=== PATIENT | male | born 1955 | race Two or more races ===

== ENCOUNTER 2024-12-27 10:57 | Emergency (ER) | payer MEDICARE, MEDICAID ==
[~2024-12-27] VITALS: Ht 177.8 cm; Wt 86.3 kg
[2024-12-27 10:59] VITALS: BP 194/90; RESP 20; TEMP 98; O2SAT 98
[2024-12-27 11:13] VITALS: PULSE 119
--- NOTE | 2024-12-27 11:21 | ECG ---
[facility] Test Date: 2024-12-27 Test Time: 11:13:00 Pat Name: SHANNON LOYA Department: ED Room: Gender: M Outcomes Specialist: semaj : [id number] Requested By: ARUNA REGAN Order Number: [id number] Reading MD: Barak Patton Measurements Intervals [place] Rate: 119 P: 0 IL: 0 QRS: -99 QRSD: 157 T: 33 QT: 344 QTc: 485 Interpretive Statements Atrial fibrillation Right bundle branch block Inferior infarct, old Anterolateral infarct, age indeterminate Baseline wander in lead(s) I,II,III,aVR,aVF,V2,V3,V6 Electronically Signed On 12-27-2024 23:01:02 PDT by Barak Patton Please click the below link to view image of tracing.
--- NOTE | 2024-12-27 11:34 | ED.PDOC ---
History of Present Illness HPI Comments This is a 69-year-old male with past medical history of CVA, brain aneurysm, CAD, status post pacemaker, aortic dissection with status post stent , AFib on Eliquis presented to the ED with a chief complaint of blurred vision, unsteady gait, lightheadedness since morning prior to this visit. The patient states that since his stroke he became very unsteady, high risk of fall and complaint of blurred vision and lightheadedness since morning. He is homeless and not able to do his ADL. He denies headache, shortness of breath, chest pain, nausea, vomiting, abdominal pain, dysuria, hematuria or any change in bowel habit. Chief Complaint: Dizziness Time Seen by MD: 11:00 Allergies: Coded Allergies: NO KNOWN ALLERGIES (Unverified , 12/27/24) Information Source: Patient Mode of Arrival: Ambulatory Severity: Mild Timing: Hours Duration: Since onset Prehospital treatment: None Past Medical History PAST MEDICAL HISTORY: AFIB, Angina, CAD, CVA, HTN Surgical History: Pacemaker, PTCA Family History Family History: Reviewed,noncontributory to illness Social History Smoker: Cigarettes, Greater Than 1 Pack/Day Alcohol: Denies ETOH Use Drugs: Denies Drug Use Lives In: Home Constitutional: reports: weakness; denies: chills, diaphoresis, fatigue, fever, malaise, sweats, others EENTM: reports: blurred vision; denies: double vision, ear bleeding, ear discharge, ear drainage, ear pain, ear ringing, eye pain, eye redness, hearing loss, mouth pain, mouth swelling, nasal discharge, nose bleeding, nose congestion, nose pain, photophobia, tearing, throat pain, throat swelling, voice changes, others Respiratory: denies: cough, hemoptysis, orthopnea, SOB at rest, shortness of breath, SOB with excertion, stridor, wheezing, others Cardiovascular: reports: dizzy spells, irregular heart beat, lightheadedness; denies: chest pain, diaphoresis, Dyspnea on exertion, edema, left arm pain, palpitations, PND, syncope, others Gastrointestinal: denies: abdomen distended, abdominal pain, blood streaked bowels, constipated, diarrhea, dysphagia, difficulty swallowing, hematemesis, melena, nausea, poor appetite, poor fluid intake, rectal bleeding, rectal pain, vomiting, others Genitourinary: denies: burning, dysuria, flank pain, frequency, hematuria, incontinence, penile discharge, penile sore, pain, testicle pain, testicle swelling, urgency, others Neurological: reports: dizziness; denies: fainting, headache, left sided numbness, left sided weakness, numbness, paresthesia, pre-existing deficit, right sided numbness, right sided weakness, seizure, speech problems, tingling, tremors, weakness, others Musculoskeletal: denies: back pain, gout, joint pain, joint swelling, muscle pain, muscle stiffness, neck pain, others Integumetry: denies: bruises, change in color, change in hair/nails, dryness, laceration, lesions, lumps, rash, wounds, others Allergic/Immunocompromised: denies: Difficulty Healing, Frequent Infections, Hives, Itching, others Hematologic/Lymphatic: denies: anemia, blood clots, easy bleeding, easy bruising, swollen glands, others Endocrine: denies: excessive hunger, excessive sweating, excessive thirst, excessive urination, flushing, intolerance to cold, intolerance to heat, unexplained weight gain, unexplained weight loss, others Psychiatric: denies: anxiety, bipolar disorder, depression, hopeless, panic disorder, schizophrenia, sleepless, suicidal, others Physical Exam General Appearance: Mild Distress HEENT: Other (Right eye is blind, 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) Neck: Full Range of Motion, Non-Tender, Normal, Normal Inspection Respiratory: Chest Non-Tender, Lungs Clear, No Accessory Muscle Use, No Respi ratory Distress, Normal Breath Sounds Cardiovascular: No Edema, No JVD, No Murmur, No Gallop, Normal Peripheral Pulses, Regular Rate/Rhythm Breast Exam: Deferred Gastrointestinal: No Organomegaly, Non Tender, No Pulsatile Mass, Normal Bowel Sounds, Soft Genitalia: Deferred Pelvic: Deferred Rectal: Deferred Extremities: No calf tenderness, Normal capillary refill, Normal inspection, Normal range of motion, Non-tender, No pedal edema Neurologic: Abnormal Gait, cheese blender II-XII nml as Tested, No Motor Deficits, No Sensory Deficits Cerebellar Function: Normal Reflexes: Normal Skin: Dry, Normal Color, Warm Peripheral Pulses: 2+ carotid (R), 2+ carotid (L), 2+ femoral (R), 2+ femoral (L), 2+ dorsalis pedis (R), 2+ dorsalis pedis (L), 2+ Radial (R), 2+ Radial (L), 2+ Brachial (R), 2+ Brachial (L) Lymphatic: NOT DONE Was a procedure done? Was a procedure done?: No Differential Dx Considerations may include: TIA, stroke, autonomic instability, labyrinthitis, BPPV, CHF X-Ray, Labs, Meds, VS Vital Signs Date Time Temp Pulse Resp B/P (MAP) Pulse Ox O2 Delivery O2 Flow Rate FiO2 12/27/24 11:13 119 12/27/24 10:59 98.0 108 20 194/90 98 98.0 Lab Test 12/27/24 14:03 12/27/24 13:00 12/27/24 11:09 Range/Units Urine Color Yellow Yellow Urine Clarity Clear Clear Urine pH 5.5 5.0-9.0 Urine Specific [place] 1.021 1.001-1.035 Urine Protein 1+ H Negative Urine Ketones Negative Negative Urine Blood 1+ H Negative /uL Urine Nitrite Negative Negative Urine Bilirubin Negative Negative Urine Urobilinogen Normal Negative mg/dL Urine Leukocyte Esterase Negative Negative /uL Urine RBC 2 0 - 3 /hpf Urine Microscopic WBC 2 0-3 /HPF Urine Squamous Epithelial Cells Few <5 /hpf Urine Bacteria None seen None Seen /hpf Urine Mucus Few None Seen Urine Glucose Normal Normal mg/dL White Blood Count 10.2 4.4-10.8 10^3/uL Red Blood Count 5.34 4.5-5.90 10^6/uL Hemoglobin 15.3 13.5-17.5 g/dL Hematocrit 43.6 41.0-53.0 % Mean Corpuscular Volume 81.7 80.0-100.0 fL Mean Corpuscular Hemoglobin 28.7 28.0-32.0 pg Mean Corpuscular Hemoglobin Concent 35.1 32.0-36.0 g/dL Red Cell Distribution Width 17.3 H 11.8-14.3 % Platelet Count 151 140-450 10^3/uL Mean Platelet Volume 8.2 6.9-10.8 fL Neutrophils (%) (Auto) 80.7 H 37.0-80.0 % Lymphocytes (%) (Auto) 8.5 L 10.0-50.0 % Monocytes (%) (Auto) 8.9 0.0-12.0 % Eosinophils (%) (Auto) 1.1 0.0-7.0 % Basophils (%) (Auto) 0.8 0.0-2.0 % Neutrophils # (Auto) 8.3 1.6-8.6 10 ^3/uL Lymphocytes # (Auto) 0.9 0.4-5.4 10 ^3/uL Monocytes # (Auto) 0.9 0-1.3 10 ^3/uL Eosinophils # (Auto) 0.1 0-0.8 10 ^3/uL Basophils # (Auto) 0.1 0-0.2 10 ^3/uL Nucleated Red Blood Cells 0.2 % Sodium Level 145 136-145 mmol/L Potassium Level 3.5 3.5-5.1 mmol/L Chloride Level 110 H 98-107 mmol/L Carbon Dioxide Level 24 20-31 mmol/L Anion Gap 11 5-15 Blood Urea Nitrogen 14 9-23 mg/dL Creatinine 1.23 0.700-1.30 mg/dL Glomerular Filtration Rate Calc 64 >90 mL/min BUN/Creatinine Ratio 11.4 10.0-20.0 Serum Glucose 127 H 74-106 mg/dL Calcium Level 10.1 8.7-10.4 mg/dL Troponin I High Sensitivity 12 </=54 ng/L B-Type Natriuretic Peptide 228.68 0-100 pg/mL POC Glucose 217 H 70-106 mg/dl X-Ray, Labs, Meds, VS Comment CLINICAL INFORMATION: 69 years old, Male; Dizziness. TECHNIQUE: Axial imaging was obtained through the brain without contrast. Coronal and sagittal reformatted images were obtained, reviewed, and stored. Images were reviewed in brain and bone windows. All CT scans at this medical facility are performed using dose modulation techniques as appropriate to a performed exam including the following: Automated exposure control was utilized; adjustment of the MA and/or KV according to patient size; and use of iterative reconstruction technique. CTDIvol = 63.11 mGy DLP = 1390.05 mGy-cm COMPARISON: None FINDINGS: There is no acute intracranial hemorrhage. No mass effect or midline shift. Scattered areas of hypoattenuation are seen in the periventricular and subcortical white matter, which are nonspecific but most likely sequelae of small vessel ischemic disease. There is beam hardening artifact from a curvi linear foreign body in the anterior aspect of the left anterior cranial fossa along the anterior aspect of the left frontal lobe posterior to the left frontal sinus. The ventricles and sulci are within normal limits in size for age. Basal cisterns are patent. The calvarium is unremarkable. Mild mucosal thickening of the paranasal sinuses with scattered areas of partial opacification, greatest in the right maxillary sinus. IMPRESSION: 1. No CT evidence of acute intracranial abnormality. 2. Foreign body in the anterior aspect of the left anterior cranial fossa with associated beam hardening artifact as described above, of uncertain etiology. Correlate with clinical findings. 3. Additional nonacute findings as described above. CHEST RADIOGRAPH Indication: Shortness of breath Technique: Single frontal view of the chest was obtained COMPARISON: None FINDINGS: Lines and Tubes: Left chest pacemaker Lungs: Clear Pleura: No effusion. No pneumothorax. Cardiomediastinal contours: Thoracic aorta stent in-situ. Bones: Unremarkable IMPRESSION: No acute disease. [facility] Test Date: 2024-12-27 Test Time: 11:13:00 Pat Name: SHANNON MCCLELLAN Department: ED Room: Gender: M Emergency Medicine Nurse Practitioner: semaj : 1955 Requested By: ARUNA REGAN Order Number: [id number] Reading MD: Measurements Intervals [place] Rate: 119 P: 0 NV: 0 QRS: -99 QRSD: 157 T: 33 QT: 344 QTc: 485 Interpretive Statements Atrial fibrillation Right bundle branch block Inferior infarct, old Anterolateral infarct, age indeterminate Baseline wander in lead(s) I,II,III,aVR,aVF,V2,V3,V6 Images Reviewed?: Images reviewed and evaluated by me Time of 1ST Reevaluation: 15:11 Reevaluation 1ST: Unchanged Patient Education/Counseling: Diagnosis, Treatment Family Education/Counseling: Other Comments This is a 69-year-old male with presented to the ER with a complaint of lightheadedness, blurred vision since morning prior to this visit The patient had a CVA 14 months ago and after that he became more unsteady and high risk of fall Initial physical exam demonstrated abnormal gait and neurological exam revealed no motor, sensory deficit, cranial nerve 2-12 normal, reflexes are normal and no sign of clonus. CT head without contrast ruled out acute intracranial abnormality tree worker is consulted regarding homelessness and assistance for daily ADL The patient is under ED observation for placement SEPSIS Sepsis Screen Date sepsis recognized/suspect: Dec 27, 2024 Time Sepsis recognized/suspect: 1100 Recent Procedure: No On Antibiotic Therapy: No Respiratory Rate >20: No Heart Rate >90: Yes Temp<36 C (96.8 F) or >38.3 C: No SBP <90 or MAP <65 mmHG: No New Acute Mental Status Change: No Is the patient on CPAP, BIPAP,: No Physician Orders Head Without Contrast (12/27/24 11:31) Chest Portable (12/27/24 11:31) Orthostatic Vital Signs (12/27/24 11:33) * Linux Server Administrator Consult (12/27/24 ) Vital Signs Date Time Temp Pulse Resp B/P (MAP) Pulse Ox O2 Delivery O2 Flow Rate FiO2 12/27/24 11:13 119 12/27/24 10:59 98.0 108 20 194/90 98 98.0 Laboratory Tests Test 12/27/24 13:00 White Blood Count 10.2 10^3/uL (4.4-10.8) Departure 1 Departure Time of Disposition: 15:18 Impression: Primary Impression: TIA (transient ischemic attack) Disposition: 01 HOME / SELF CARE / HOMELESS Condition: Guarded Critical Care Note Critical Care Time?: No Stability Stability form required: ARUNA Saeed RESIDENT Dec 27, 2024 11:34
--- NOTE | 2024-12-27 12:33 | DVH ---
CHEST RADIOGRAPH Indication: Shortness of breath Technique: Single frontal view of the chest was obtained COMPARISON: None FINDINGS: Lines and Tubes: Left chest pacemaker Lungs: Clear Pleura: No effusion. No pneumothorax. Cardiomediastinal contours: Thoracic aorta stent in-situ. Bones: Unremarkable IMPRESSION: No acute disease.
--- NOTE | 2024-12-27 12:39 | DVH ---
CLINICAL INFORMATION: 69 years old, Male; Dizziness. TECHNIQUE: Axial imaging was obtained through the brain without contrast. Coronal and sagittal reform atted images were obtained, reviewed, and stored. Images were reviewed in brain and bone windows. Al l CT scans at this medical facility are performed using dose modulation techniques as appropriate to a performed exam including the following: Automated exposure control was utilized; adjustment of the MA and/or KV according to patient size; and use of iterative reconstruction technique. CTDIvol = 63.1 1 mGy DLP = 1390.05 mGy-cm COMPARISON: None FINDINGS: There is no acute intracranial hemorrhage. No mass effect or midline shift. Scattered areas of hypoattenuation are seen in the periventricular and subcortical white matter, which are nonspecif ic but most likely sequelae of small vessel ischemic disease. There is beam hardening artifact from a curvilinear foreign body in the anterior aspect of the left anterior cranial fossa along the anterio r aspect of the left frontal lobe posterior to the left frontal sinus. The ventricles and sulci are w ithin normal limits in size for age. Basal cisterns are patent. The calvarium is unremarkable. Mild mucosal thickening of the paranasal sinuses with scattered areas of partial opacification, greatest i n the right maxillary sinus. IMPRESSION: 1. No CT evidence of acute intracranial abnormality. 2. Foreign body in the anterior aspect of the left anterior cranial fossa with associated beam harden ing artifact as described above, of uncertain etiology. Correlate with clinical findings. 3. Additional nonacute findings as described above.
[2024-12-27 13:33] LABS: Hematocrit 43.6 % (41.0-53.0); Hemoglobin 15.3 g/dL (13.5-17.5); Mean Corpuscular Hemoglobin 28.7 pg (28.0-32.0); Mean Corpuscular Volume 81.7 fL (80.0-100.0); Nucleated Red Blood Cells % 0.2 %
[2024-12-27 13:36] LABS: Anion Gap 11 (5-15); Calcium 10.1 mg/dL (8.7-10.4); Carbon Dioxide 24 mmol/L (20-31)
[2024-12-27 13:38] LABS: Chloride 110 mmol/L (98-107); Potassium 3.5 mmol/L (3.5-5.1); Sodium 145 mmol/L (136-145)
[2024-12-27 13:41] LABS: BUN/Creatinine Ratio 11.4 (10.0-20.0); Blood Urea Nitrogen 14 mg/dL (9-23)
[2024-12-27 13:46] LABS: Glucose 127 mg/dL (74-106)
[2024-12-27 14:09] LABS: Urine Protein, UAD 1+ (Negative)
[2024-12-28] MEDS ORDERED: AMLO1TAB22 PO (10:32)
[2024-12-28] MEDS ORDERED: APIX5TAB PO (10:32)
== END 2024-12-27 17:35 | disposition home or self-care (01) ==
LOC: ER 10:57
DX: G45.9 Transient cerebral ischemic attack, unspecified (principal); I10 Essential (primary) hypertension; F17.210 Nicotine dependence, cigarettes, uncomplicated; I25.10 Atherosclerotic heart disease of native coronary artery without angina pectoris; I48.91 Unspecified atrial fibrillation; Z95.0 Presence of cardiac pacemaker; Z98.890 Other specified postprocedural states
CPT/HCPCS: 36415; 70450; 71045; 80048; 81001; 82947; 82962; 83880; 84484; 85025; 93005

== ENCOUNTER 2024-12-27 20:12 | Inpatient (IN) | payer MEDICARE, OTHER, MEDICAID ==
[~2024-12-27] VITALS: Ht 177.8 cm; Wt 89.7 kg
--- NOTE | 2024-12-27 21:02 | DVH ---
INDICATION: SOB TECHNIQUE: Frontal view of the chest. COMPARISON: XY CHEST PORTABLE on DOS: 12/27/24 FINDINGS/IMPRESSION: Left-sided dual-chamber pacemaker. Aortic stent is noted. Unchanged cardiomediastinal silhouette. T he lungs are clear. No pleural effusion or pneumothorax. Unchanged osseous structures.
--- NOTE | 2024-12-27 21:38 | ED.PDOC ---
History of Present Illness HPI Comments 69 year old male presents to the ED with a chief complaint of generalized weakness onset today (12/27/24). PMHx CVA, brain aneurysm, CAD, status post pacemaker, aortic dissection with status post stent , AFib on Eliquis. Patient states he was seen earlier today in this ED for dizziness, was discharged. Patient was outside hospital, states he felt weak, fell 2 different times, decided to check in. He is currently experiencing generalized weakness, chest pain, rates pain 9/. Denies fever, chills, nausea, vomiting, diarrhea, shortness of breath, headache, dysuria, hematuria. No other symptoms or modifying factors present at this time. Chief Complaint: General Weakness Time Seen by MD: 21:15 Reviewed Notes: Medications, Allergies Allergies: Coded Allergies: NO KNOWN ALLERGIES (Unverified , 12/27/24) Information Source: Patient Mode of Arrival: Ambulatory Severity: Moderate Timing: Hours Duration: Since onset Prehospital treatment: None Past Medical History PAST MEDICAL HISTORY: AFIB, Angina, CAD, CVA, HTN Surgical History: Pacemaker, PTCA Family History Family History: Reviewed,noncontributory to illness Social History Smoker: Cigarettes, Greater Than 1 Pack/Day Alcohol: Denies ETOH Use Drugs: Denies Drug Use Lives In: Home Constitutional: reports: weakness; denies: chills, diaphoresis, fatigue, fever, malaise, sweats, others EENTM: denies: blurred vision, double vision, ear bleeding, ear discharge, ear drainage, ear pain, ear ringing, eye pain, eye redness, hearing loss, mouth pain, mouth swelling, nasal discharge, nose bleeding, nose congestion, nose pain, photophobia, tearing, throat pain, throat swelling, voice changes, others Respiratory: denies: cough, hemoptysis, orthopnea, SOB at rest, shortness of breath, SOB with excertion, stridor, wheezing, others Cardiovascular: reports: chest pain; denies: dizzy spells, diaphoresis, Dyspnea on exertion, edema, irregular heart beat, left arm pain, lightheadedness, palpitations, PND, syncope, others Gastrointestinal: denies: abdomen distended, abdominal pain, blood streaked bowels, constipated, diarrhea, dysphagia, difficulty swallowing, hematemesis, melena, nausea, poor appetite, poor fluid intake, rectal bleeding, rectal pain, vomiting, others Genitourinary: denies: burning, dysuria, flank pain, frequency, hematuria, incontinence, penile discharge, penile sore, pain, testicle pain, testicle swelling, urgency, others Neurological: reports: weakness; denies: dizziness, fainting, headache, left sided numbness, left sided weakness, numbness, paresthesia, pre-existing deficit, right sided numbness, right sided weakness, seizure, speech problems, tingling, tremors, others Musculoskeletal: denies: back pain, gout, joint pain, joint swelling, muscle pain, muscle stiffness, neck pain, others Integumetry: denies: bruises, change in color, change in hair/nails, dryness, laceration, lesions, lumps, rash, wounds, others Allergic/Immunocompromised: denies: Difficulty Healing, Frequent Infections, Hives, Itching, others Hematologic/Lymphatic: denies: anemia, blood clots, easy bleeding, easy bruising, swollen glands, others Endocrine: denies: excessive hunger, excessive sweating, excessive thirst, excessive urination, flushing, intolerance to cold, intolerance to heat, unexplained weight gain, unexplained weight loss, others Psychiatric: denies: anxiety, bipolar disorder, depression, hopeless, panic disorder, schizophrenia, sleepless, suicidal, others All Other Systems: Reviewed and Negative Physical Exam General Appearance: Normal HEENT: Normal ENT Inspection, Pharynx Normal, TMs Normal Neck: Full Range of Motion, Non-Tender, Normal, Normal Inspection Respiratory: Chest Non-Tender, Lungs Clear, No Accessory Muscle Use, No Respiratory Distress, Normal Breath Sounds Cardiovascular: No Edema, No JVD, No Murmur, No Gallop, Normal Peripheral Pulses, Regular Rate/Rhythm Breast Exam: Deferred Gastrointestinal: No Organomegaly, Non Tender, No Pulsatile Mass, Normal Bowel Sounds, Soft Genitalia: Deferred Pelvic: Deferred Rectal: Deferred Extremities: No calf tenderness, Normal capillary refill, Normal inspection, Normal range of motion, Non-tender, No pedal edema Musculoskeletal : Apperance: Normal Neurologic: Alert, brake operator sheet metal II-XII nml as Tested, No Motor Deficits, Normal Affect, Normal Mood, No Sensory Deficits Cerebellar Function: Normal Reflexes: Normal Skin: Dry, Normal Color, Warm Lymphatic: No Adenopathy Was a procedure done? Was a procedure done?: No Differential Dx Considerations may include: Differential diagnosis includes but not limited to: Myocardial infarction, aortic dissection, aortic aneurysm, pericarditis, pulmonary embolus and others X-Ray, Labs, Meds, VS Vital Signs Date Time Temp Pulse Resp B/P (MAP) Pulse Ox O2 Delivery O2 Flow Rate FiO2 12/27/24 20:15 97.6 96 16 155/103 96 97.6 Lab Test 12/27/24 22:03 12/27/24 21:01 Range/Units Troponin I High Sensitivity 14 13 </=54 ng/L White Blood Count 9.1 4.4-10.8 10^3/uL Red Blood Count 4.99 4.5-5.90 10^6/uL Hemoglobin 14.4 13.5-17.5 g/dL Hematocrit 41.2 41.0-53.0 % Mean Corpuscular Volume 82.6 80.0-100.0 fL Mean Corpuscular Hemoglobin 28.9 28.0-32.0 pg Mean Corpuscular Hemoglobin Concent 35.0 32.0-36.0 g/dL Red Cell Distribution Width 16.6 H 11.8-14.3 % Platelet Count 131 L 140-450 10^3/uL Mean Platelet Volume 8.5 6.9-10.8 fL Neutrophils (%) (Auto) 74.0 37.0-80.0 % Lymphocytes (%) (Auto) 13.7 10.0-50.0 % Monocytes (%) (Auto) 9.7 0.0-12.0 % Eosinophils (%) (Auto) 1.9 0.0-7.0 % Basophils (%) (Auto) 0.7 0.0-2.0 % Neutrophils # (Auto) 6.7 1.6-8.6 10 ^3/uL Lymphocytes # (Auto) 1.2 0.4-5.4 10 ^3/uL Monocytes # (Auto) 0.9 0-1.3 10 ^3/uL Eosinophils # (Auto) 0.2 0-0.8 10 ^3/uL Basophils # (Auto) 0.1 0-0.2 10 ^3/uL Nucleated Red Blood Cells 0.1 % Sodium Level 143 136-145 mmol/L Potassium Level 3.2 L 3.5-5.1 mmol/L Chloride Level 109 H 98-107 mmol/L Carbon Dioxide Level 23 20-31 mmol/L Anion Gap 11 5-15 Blood Urea Nitrogen 13 9-23 mg/dL Creatinine 1.24 0.700-1.30 mg/dL Glomerular Filtration Rate Calc 63 >90 mL/min BUN/Creatinine Ratio 10.5 10.0-20.0 Serum Glucose 229 #H 74-106 mg/dL Calcium Level 9.6 8.7-10.4 mg/dL Magnesium Level 2.1 1.6-2.6 mg/dL Total Bilirubin 0.9 0.2-1.0 mg/dL Aspartate Amino Transferase (AST) 38 13-40 U/L Alanine Aminotransferase (ALT) 80 H 7-40 U/L Alkaline Phosphatase 103 46-116 U/L Total Protein 7.9 5.7-8.2 g/dL Albumin 4.5 3.2-4.8 g/dL [place] [id number] Ph: [phone] DIAGNOSTIC IMAGING Diagnostic Imaging Report : [id number] Signed PATIENT: SHANNON LOYA ACCT: [id number] UNIT: [id number] : 1955 LOC: ER ROOM / BED: / AGE / SEX: 69 / M ADM STATUS: REG ER SERVICE 25 ORDERING PHYSICIAN: LIVIER MARTINEZ MD PROCEDURE(s): CXRP - CHEST PORTABLE REASON: SOB ORDER NUMBER(s): [id number], ACCESSION NUMBER(s): [id number] INDICATION: SOB TECHNIQUE: Frontal view of the chest. COMPARISON: XY CHEST PORTABLE on DOS: 12/27/24 FINDINGS/IMPRESSION: Left-sided dual-chamber pacemaker. Aortic stent is noted. Unchanged cardiomediastinal silhouette. The lungs are clear. No pleural effusion or pneumothorax. Unchanged osseous structures. ATED BY: NICOLE ARENAS MD DICTATED DATE/TIME: 12/27/242058 SIGNED BY: NICOLE ARENAS MD SIGNED DATE/TIME: 12/27/242058 CC: Time of 1ST Reevaluation: 21:45 Reevaluation 1ST: Unchanged Patient Education/Counseling: Diagnosis, Treatment, Prognosis Family Education/Counseling: No Family Present Additional Information The following tests were ordered, and results were reviewed by me: TROP-x3, CBC, CMP, XY CHEST, MAGNESIUM, EKG I reviewed and agreed with the following test results read by other providers: XY CHEST I discussed treatment and results with medical personnel and: patient Comprehensive systems review obtained and negative except for what is stated in the HPI. SEPSIS Sepsis Screen Date sepsis recognized/suspect: Dec 27, 2024 Time Sepsis recognized/suspect: 2018 Recent Procedure: No On Antibiotic Therapy: No Respiratory Rate >20: No Heart Rate >90: Yes Temp<36 C (96.8 F) or >38.3 C: No SBP <90 or MAP <65 mmHG: No New Acute Mental Status Change: No Is the patient on CPAP, BIPAP,: No Physician Orders Chest Portable (12/27/24 20:26) Electrocardigram (12/27/24 20:26) Troponin-I Hs (12/27/24 23:26) Vital Signs Date Time Temp Pulse Resp B/P (MAP) Pulse Ox O2 Delivery O2 Flow Rate FiO2 12/27/24 20:15 97.6 96 16 155/103 96 97.6 Laboratory Tests Test 12/27/24 21:01 White Blood Count 9.1 10^3/uL (4.4-10.8) Departure 1 Departure Time of Disposition: 23:24 Impression: Primary Impression: Acute coronary syndrome Disposition: ADMITTED INPATIENT Admit to: Tele Condition: Guarded Discharged With: Self Comments 69-year-old male with a history of prior strokes and prior aortic aneurysm and prior myocardial infarctions with multiple stents placed now presents with left- sided chest pain. Patient was given aspirin and morphine. Initial troponin is within normal limits. Patient will need to be admitted for further cardiac workup and supportive care Critical Care Note Critical Care Time?: Yes (35 min-critical care time only) Critical care comment: Total critical care time: Approximately 36 minutes Due to a high probability of clinically significant, life threatening deterioration, the patient required my highest level of preparedness to intervene emergently and I personally spent this critical care time directly and personally managing the patient. This critical care time included obtaining a history; examining the patient; pulse oximetry; ordering and review of studies; arranging urgent treatment with development of a management plan; evaluation of patient's response to treatment; frequent reassessment; and, discussions with other providers. This critical care time was performed to assess and manage the high probability of imminent, life-threatening deterioration that could result in multi-organ failure. It was exclusive of separately billable procedures and treating other patients. Stability Stability form required: No Heart Score Heart Score: Heart Score Response (Comments) Value History Moderate Suspicious 1 EKG Repolarization Disturb 1 Age >65 2 Risk Factors >3 or Hx ASHD 2 Troponin Normal limit 0 Total 6 I personally scribed for LIVIER MARTINEZ MD ([email or web address]) on 12/27/24 at 21:38. Electronically submitted by Tesha Byers ([email or web address]). LIVIER MARTINEZ MD Dec 27, 2024 21:38
[2024-12-27 21:43] LABS: Hematocrit 41.2 % (41.0-53.0); Hemoglobin 14.4 g/dL (13.5-17.5); Mean Corpuscular Hemoglobin 28.9 pg (28.0-32.0); Mean Corpuscular Volume 82.6 fL (80.0-100.0); Nucleated Red Blood Cells % 0.1 %
[2024-12-27 21:55] LABS: Albumin 4.5 g/dL (3.2-4.8); Alkaline Phosphatase 103 U/L (46-116); Anion Gap 11 (5-15); BUN/Creatinine Ratio 10.5 (10.0-20.0); Blood Urea Nitrogen 13 mg/dL (9-23); Calcium 9.6 mg/dL (8.7-10.4); Carbon Dioxide 23 mmol/L (20-31); Magnesium 2.1 mg/dL (1.6-2.6); Sodium 143 mmol/L (136-145); Total Protein 7.9 g/dL (5.7-8.2)
[2024-12-27 21:56] LABS: Bilirubin, Total 0.9 mg/dL (0.2-1.0)
[2024-12-27 22:11] LABS: Alanine Aminotransferase 80 U/L (7-40); Chloride 109 mmol/L (98-107); Glucose 229 mg/dL (74-106); Potassium 3.2 mmol/L (3.5-5.1)
[2024-12-28] VITALS (10 sets, daily range): BP systolic 121–163; BP diastolic 71–101; PULSE 64–98; RESP 16–19; TEMP 96.9–98.4; O2SAT 95–97
[2024-12-28] MEDS ORDERED: MORPHINE SULFATE INJ 2 MG/ml SYRG IV PRN (00:30)
[2024-12-28] MEDS ORDERED: NITROGLYCERIN 0.4 MG SL TAB SL PRN (00:30)
--- NOTE | 2024-12-28 01:05 | DVHHPRES ---
History of Present Illness Resident Creating Document: OLEG OAKES RESIDENT History of Present Illness 69-year-old male with history of repair of aortic dissection with stent placed, atrial fibrillation with dual-chamber left-sided pacemaker in place on Eliquis, cerebrovascular accident with remaining neurologic deficits, peripheral arterial disease status post left 2nd toe amputation, uncontrolled diabetes mellitus nonadherence to medicines, hypertension presents to the ER with the complaints of dizziness followed by fall 2 times, right-sided lower chest pain for the same duration. He also reports having increasing weakness in the legs. The pain is sharp and aching in nature, worse with movement, deep breathing or coughing. He denies any associated shortness of breath, abdominal pain, nausea, vomiting or any other complaints. He endorsed ataxic gait during history taking and examination. Past medical history: Hypertension, diabetes mellitus,cerebrovascular accident with remaining neurologic deficits, peripheral neuropathy Past surgical history: Aortic dissection with stent placed (12 years ago) , atrial fibrillation with dual-chamber left-sided pacemaker in place (10 years ago),peripheral arterial disease status post left 2nd toe amputation, Home medications: Eliquis, Lipitor Allergies: None Family history: Multiple siblings of coronary artery disease Social history: Lives in a travel trailer, does not have a wheelchair or walker Smoking history: 156 to 208 pack years, smoking 3-4 packs of cigarettes since 17 years of age Alcohol history: Drank for 25 years Drugs history: None PCP: Dr. Erickson Dillard Code status: Full code Review of Systems Cardiovascular: Chest Pain, Lt Headedness Neurological: Weakness Allergies: Coded Allergies: NO KNOWN ALLERGIES (Unverified , 12/27/24) Medications Current Medications Medications Dose Ordered Sig/Stefanie Route Start Time Stop Time Status Last Admin Dose Admin Nitroglycerin 0.4 mg Q5MINP PRN SL 12/28/24 00:30 UNV Morphine Sulfate 2 mg Q30M PRN IV 12/28/24 00:30 UNV Exam Vital Signs Vital Signs Date Time Temp Pulse Resp B/P (MAP) Pulse Ox O2 Delivery O2 Flow Rate FiO2 12/27/24 20:15 97.6 96 16 155/103 96 97.6 Exam Pt is lying on bed General Appearance: Alert, Oriented X3, Cooperative, Mild distress HEENT: Atraumatic, Mucous membranes moist/pink Respiratory: Clear to auscultation, Normal air movement, No added sounds Cardiovascular: Regular rate, Normal S1, Normal S2, No murmurs Abdominal/ : Active bowel sounds, Soft, no distention, right upper abdomen tenderness, tenderness present over right lower ribs Extremities:bilateral lower extremity skin indurated, thickened and erythematou s, Multiple small ulcers noted at the anterior surfaces of both legs, left 2nd toe amputated. Skin: No Significant rash, except past surgical scars Neuro: Normal speech, mild right-sided weakness, peripheral vision loss in both eyes, right lateral rectus muscle weak. right eye deviated to the periphery. Ataxic gait. Psych/Mental Status: Mental status NL, Mood NL Nurse was there as account group supervisor during examination Labs/Xrays Labs Test 12/27/24 22:03 12/27/24 21:01 Range/Units Troponin I High Sensitivity 14 </=54 ng/L White Blood Count 9.1 4.4-10.8 10^3/uL Red Blood Count 4.99 4.5-5.90 10^6/uL Hemoglobin 14.4 13.5-17.5 g/dL Hematocrit 41.2 41.0-53.0 % Mean Corpuscular Volume 82.6 80.0-100.0 fL Mean Corpuscular Hemoglobin 28.9 28.0-32.0 pg Mean Corpuscular Hemoglobin Concent 35.0 32.0-36.0 g/dL Red Cell Distribution Width 16.6 H 11.8-14.3 % Platelet Count 131 L 140-450 10^3/uL Mean Platelet Volume 8.5 6.9-10.8 fL Neutrophils (%) (Auto) 74.0 37.0-80.0 % Lymphocytes (%) (Auto) 13.7 10.0-50.0 % Monocytes (%) (Auto) 9.7 0.0-12.0 % Eosinophils (%) (Auto) 1.9 0.0-7.0 % Basophils (%) (Auto) 0.7 0.0-2.0 % Neutrophils # (Auto) 6.7 1.6-8.6 10 ^3/uL Lymphocytes # (Auto) 1.2 0.4-5.4 10 ^3/uL Monocytes # (Auto) 0.9 0-1.3 10 ^3/uL Eosinophils # (Auto) 0.2 0-0.8 10 ^3/uL Basophils # (Auto) 0.1 0-0.2 10 ^3/uL Nucleated Red Blood Cells 0.1 % Sodium Level 143 136-145 mmol/L Potassium Level 3.2 L 3.5-5.1 mmol/L Chloride Level 109 H 98-107 mmol/L Carbon Dioxide Level 23 20-31 mmol/L Anion Gap 11 5-15 Blood Urea Nitrogen 13 9-23 mg/dL Creatinine 1.24 0.700-1.30 mg/dL Glomerular Filtration Rate Calc 63 >90 mL/min BUN/Creatinine Ratio 10.5 10.0-20.0 Serum Glucose 229 #H 74-106 mg/dL Calcium Level 9.6 8.7-10.4 mg/dL Magnesium Level 2.1 1.6-2.6 mg/dL Total Bilirubin 0.9 0.2-1.0 mg/dL Aspartate Amino Transferase (AST) 38 13-40 U/L Alanine Aminotransferase (ALT) 80 H 7-40 U/L Alkaline Phosphatase 103 46-116 U/L Total Protein 7.9 5.7-8.2 g/dL Albumin 4.5 3.2-4.8 g/dL SEPSIS Sepsis Screen Date sepsis recognized/suspect: Dec 27, 2024 Time Sepsis recognized/suspect: 2018 Recent Procedure: No On Antibiotic Therapy: No Respiratory Rate >20: No Heart Rate >90: Yes Temp<36 C (96.8 F) or >38.3 C: No SBP <90 or MAP <65 mmHG: No New Acute Mental Status Change: No Is the patient on CPAP, BIPAP,: No Physician Orders Chest Portable (12/27/24 20:26) Electrocardigram (12/27/24 20:26) Troponin-I Hs (12/27/24 23:26) Admit (12/28/24 00:26) Code Status (12/28/24 00:26) Fall Risk Precautions In Place QSHIFT (12/28/24 00:26) Complete Blood Count (12/29/24 04:00) Comprehensive Metabolic Panel (12/29/24 04:00) Cardiac Diet-2gna,Lofat,Lochol (12/28/24 Breakfast) Nitroglycerin Sublingual (Ntrostat Subli (12/28/24 00:30) Morphine Sulfate Injection (12/28/24 00:30) Oxygen By Nasal Cannula (12/28/24 00:26) Stat Ekg For Chest Pain (12/28/24 00:26) Notify Md Of Changes From Base (12/28/24 00:26) Vital Signs Date Time Temp Pulse Resp B/P (MAP) Pulse Ox O2 Delivery O2 Flow Rate FiO2 12/27/24 20:15 97.6 96 16 155/103 96 97.6 Laboratory Tests Test 12/27/24 21:01 White Blood Count 9.1 10^3/uL (4.4-10.8) Assessment/Plan Assessment/Plan Chest pain rule out ACS Atrial fibrillation -EKG: AFib -troponin 13 -nitroglycerin, morphine, oxygen given -Eliquis 5 mg p.o. b.i.d. for AFib Uncontrolled diabetes mellitus Blood glucose 229 Lantus 20 units Insulin sliding scale Uncontrolled hypertension Aortic dissection status post stent placement Amlodipine 10 mg p.o. daily Carvedilol 3.25 daily Peripheral arterial disease/hyperlipidemia Lipitor 40 mg Social Unstable housing and assistance for mobility (Wheelchair, Walker? ) due to fall risk GI prophylaxis: Pantoprazole DVT prophylaxis: Eliquis Diet: Cardiac Goals of care discussed with the patient for more than 27 minutes: Full code status Case discussed with Dr. Calderon, patient and RN Plan discussed with: Patient, Other (RN) My Orders Orders - OLEG OAKES RESIDENT Procedure Category Date Status Time Admit ADMIT 12/28/24 Transmitted 00:26 Code Status CODE 12/28/24 Transmitted 00:26 Fall Risk Precautions JAVIER 12/28/[address] 00:26 Complete Blood Count LAB 12/29/24 Verified 04:00 Comprehensive LAB 12/29/24 Verified Metabolic Panel 04:00 Cardiac DIET 12/28/24 Transmitted Diet-2gna,Lofat,Lochol Breakfast Nitroglycerin PHA 12/28/24 Logged Sublingual (Ntrostat 00:30 Morphine Sulfate PHA 12/28/24 Logged Injection 00:30 Oxygen By Nasal RT 12/28/24 Transmitted Cannula 00:26 Stat Ekg For Chest JAVIER 12/28/24 In Process Pain 00:26 Notify Of Changes JAVIER 12/28/24 In Process From Base 00:26 Date of Service: Dec 28, 2024 Billing Provider: SHYAM CALDERON MD Common Visit Codes: 32732-MIPFCCV INP/OBS CARE (HIGH) Secondary Visit Codes: 78604-[id number] CARE PLAN 30 MINUTES OLEG OAKES RESIDENT Dec 28, 2024 01:05
[2024-12-28] MEDS ORDERED: DEXTROSE (50%) 50ML SYRG IV PRN (01:30)
[2024-12-28 02:29] LABS: COVID19 ANTIGEN SOFIA FIA NEGATIVE (NEGATIVE)
[2024-12-28] MEDS: POTASSIUM EFFERVESENT TAB 25 MEQ PO ONE ×2 (02:57→17:10)
[2024-12-28] MEDS: CARVEDILOL 3.125 MG TAB PO ONE (02:57)
[2024-12-28] MEDS: INSULIN LANTUS (GLARGINE) 1 /0.01ml (100units/ml) SC STA (03:00)
[2024-12-28] MEDS: ACCU-CHEK COMFORT CURVE STRIP VI SCH (06:15)
[2024-12-28] MEDS: InsuLIN REG 1unit/0.01ml Soln (100units/ml) SC SCH (06:16)
[2024-12-28 10:02] LABS: Hematocrit 38.5 % (41.0-53.0); Hemoglobin 13.2 g/dL (13.5-17.5); Mean Corpuscular Hemoglobin 28.5 pg (28.0-32.0); Mean Corpuscular Volume 83.0 fL (80.0-100.0); Nucleated Red Blood Cells % 0.1 %
[2024-12-28 10:10] LABS: Sodium 143 mmol/L (136-145)
[2024-12-28 10:11] LABS: Anion Gap 9 (5-15); Calcium 9.2 mg/dL (8.7-10.4); Carbon Dioxide 27 mmol/L (20-31)
[2024-12-28 10:16] LABS: BUN/Creatinine Ratio 14.2 (10.0-20.0); Blood Urea Nitrogen 15 mg/dL (9-23)
[2024-12-28 10:26] LABS: Chloride 107 mmol/L (98-107); Glucose 189 mg/dL (74-106); Potassium 3.4 mmol/L (3.5-5.1)
[2024-12-28] MEDS: APIXABAN 5 MG TAB PO SCH (10:32)
[2024-12-28] MEDS ORDERED: AMLO1TAB22 PO (10:32)
[2024-12-28] MEDS ORDERED: APIX5TAB PO (10:32)
[2024-12-28] MEDS: CARVEDILOL 3.125 MG TAB PO SCH (10:33)
--- NOTE | 2024-12-28 11:49 | DVH ---
Indication: presyncope Technique: Real-time ultrasound images of the neck vessels with dickson-scale, color and wave Doppler we re obtained. Comparison: None Findings: Unid-gj-wiftvtba atherosclerotic plaque bilaterally. The following peak systolic velocities were recorded in cm/sec: Right internal carotid: 86 Right common carotid: 49 Right external carotid: 71 Right internal/common carotid ratio: 1.7 Left internal carotid: 91 Left common carotid: 54 Left external carotid: 92 Left internal/common carotid ratio: 1.7 Right vertebral artery: Patent with normal antegrade direction of flow. Left vertebral artery: Patent with normal antegrade direction of flow. Lower velocity compared to the right Impression: No hemodynamically significant stenosis by velocity criteria of the internal carotid arteries. Decreased velocity within the left vertebral artery may indicate hemodynamically significant stenosis
--- NOTE | 2024-12-28 12:12 | ECG ---
[facility] Test Date: 2024-12-28 Test Time: 01:38:03 Pat Name: SHANNON LOYA Department: [facility] ED Patient ID: [facility]-[id number] Room: 0247 Gender: M Labeling Specialist: : 1955 Requested By: LIVIER MARTINEZ Order Number: [id number] Reading MD: Barak Patton Measurements Intervals [place] Rate: 102 P: 0 SD: 0 QRS: -105 QRSD: 161 T: 48 QT: 411 QTc: 536 Interpretive Statements Afib/flut and V-paced complexes No further rhythm analysis attempted due to paced rhythm Right bundle branch block Probable inferior infarct, recent Electronically Signed On 12-28-2024 22:31:44 PDT by Barak Patton Please click the below link to view image of tracing.
--- NOTE | 2024-12-28 14:38 | DVH ---
Indication: r/o PE Technique: CT axial images of the abdomen and pelvis are obtained with intravenous contrast. Coronal and sagittal reformats were obtained. Radiation Dose Information: CTDI volume is 26.64 mGy. Dose-length product is 9052 mGy*cm Comparison: None FINDINGS: No large defect within the main left and right pulmonary arteries. Segmental and subsegmental branche s are suboptimally opacified/ characterized, no definitive defects identified. Trachea patent. No pneumothorax. Bilateral atelectasis. Heart size at the upper limits of normal. Coronary artery calcification disease. Thoracic aortic end ograft beginning in the aortic arch with fenestration into the left subclavian artery.. The thoracic aorta measures up to 5.2 cm in diameter. The proximal abdominal aorta measures approximately 4.9 cm in diameter. No aggressive osseous process. IMPRESSION: No evidence for large pulmonary embolism. 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 Endograft ext ends into the proximal abdominal aorta. Aneurysm sac measures 5.2 cm in the thoracic aorta and 4.9 c m in the proximal abdominal aorta. This is inadequately characterized due to the majority of contras t being within the pulmonary artery circulation. Coronary artery calcification disease. Other findings as described
--- NOTE | 2024-12-28 16:20 | DVHSR ---
APPROVED REPORT EXAM: Two-dimensional and M-mode echocardiogram with Doppler and color Doppler. Blood Pressure: 146/91 mmHg INDICATION Chest Pain h/o aortic dissection RISK FACTORS Height: 5'10", Weight: 190 DIMENSIONS LVDd5.3 (3.8-5.7cm)LA (2D)5.4 (1.9-4.0cm)Aortic Root3.9 (2.0-3.7cm) LVDs3.4 (2.5-4.0cm)LA (MM) (1.9-4.0cm)Aortic Cusp Exc1.6 (1.5-2.0cm) EF (%) 65.0 (55-70%)Rt. Atrium5.0 (1.9-4.0cm)Asc. Aorta4.2 cm IVSd1.2 (0.7-1.1cm)RV (D)3.8 (1.8-2.4cm) PWd1.1 (0.7-1.1cm) Mitral Valve MitralMitral Stenosis E wave0.74m/sMV Mean GR.mmHg E/A ratio0.02D MVAcm2 Aortic Valve Aortic ValveAortic Stenosis V10.84m/N[place]um Mean GR.4mmHg V21.21m/[place]um Peak GR.6mmHg LVOT Diameter2.4 (1.8-2.4cm)Doppler AVA3.14cm2 Pulmonic Valve V20.76m/s Tricuspid Valve TR Velocity2.39m/s [id number] Other Information Quality : Technically LimitedRhythm : Technically limited study due to pt non-stop moving. Supratsernal views unavailable due to pt moving . Conclusion LVEF borderline 45-50%, mild global hypokinesis. Mild LVH Right ventricle mildly hypokinetic. Device lead present Moderat right and left atrila dilation Mild aortic root dilation, 4.2cm
--- NOTE | 2024-12-28 17:14 | DVHPNRES ---
Progress Note Date Seen: Dec 28, 2024 Resident Creating Document: HARJEET BARKER RESIDENT Medical Necessity Reason Pt with a Central, PICC or Fol: No Subjective Review of Systems This is a 69-year-old male with history of repair of aortic dissection with stent placed, atrial fibrillation with dual-chamber left-sided pacemaker in place on Eliquis, cerebrovascular accident with some neurologic deficits, peripheral arterial disease status post left 2nd toe amputation, uncontrolled diabetes mellitus because of nonadherence to medication and hypertension who presented to the ER with the complaints of dizziness followed by fall twice.He said he dizzy while walking and has to sit to regain balance. He also had right- sided lower chest pain for the same duration. He also reports having increasing weakness in the legs. The pain is sharp and aching in nature, worse with movement, deep breathing or coughing. He denies any associated shortness of breath, abdominal pain, nausea, vomiting or any other complaints. He endorsed ataxic gait during history taking and examination. Past medical history: Hypertension, diabetes mellitus,cerebrovascular accident with remaining neurologic deficits, peripheral neuropathy Past surgical history: Aortic dissection with stent placed (12 years ago) , atrial fibrillation with dual-chamber left-sided pacemaker in place (10 years ago),peripheral arterial disease status post left 2nd toe amputation Home medications: Eliquis, Lipitor Allergies: None Family history: Multiple siblings of coronary artery disease Social history: Lives in a travel trailer, does not have a wheelchair or walker Smoking history: 50 pack year smoking history, smoking 3-4 packs of cigarettes since 17 years of age Alcohol history: heavy drinking for 25 years Drugs history: None PCP: Dr. Erickson Dillard Code status: Full code Allergies: no known allergies Patient seen and examined at bedside. Patient is alert and oriented to time, place person and responding to all questions. Eyes: No Pain, No Vision change, No Conjunctivae inflammation, No Eyelid inflammation, No Other, No Redness ENT: No Ear pain, No Ear discharge, No Nose pain, No Nose discharge, No Nose congestion, No Mouth pain, No Mouth swelling, No Throat pain, No Throat swelling, No Other Cardiovascular: Chest Pain, No Palpitations, No Orthopnea, No Paroxysmal No Dyspnea, No Edema, No Lt Headedness, No Other Respiratory: No Cough, No Dry,no Shortness of breath, No SOB with exertion, No Wheezing, No Hemoptysis, No Pleuritic Pain, No Sputum, No Other Gastrointestinal: No Nausea, No Vomiting, No Abdominal Pain, No Diarrhea, No Constipation, No Melena, No Hematochezia, No Other Genitourinary: No Dysuria, No Frequency, No Incontinence, No Hematuria, No Retention, No Other Objective vital signs Vital Sign Date Time Temp Pulse Resp B/P (MAP) Pulse Ox O2 Delivery O2 Flow Rate FiO2 12/28/24 16:46 97.6 70 17 130/75 (93) 95 97.6 12/28/24 08:00 Room Air* 0 21 Total Intake and Output 12/27/24 12/27/24 12/28/24 15:00 23:00 07:00 Intake Total 0 ml Balance 0 ml medications Current Medications Medications Dose Ordered Sig/Stefanie Route Start Time Stop Time Status Last Admin Dose Admin Nitroglycerin 0.4 mg Q5MINP PRN SL 12/28/24 00:30 Morphine Sulfate 2 mg Q30M PRN IV 12/28/24 00:30 Diagnostic Test (Pha) 1 strip ACHS 12/28/24 07:00 12/28/24 13:32 1 STRIP Insulin Human Regular ACHS SC 12/28/24 07:00 Dextrose 50 ml UD PRN IV 12/28/24 01:30 Carvedilol 3.125 mg DAILY PO 12/28/24 10:00 12/28/24 10:33 3.125 MG Amlodipine Besylate 10 mg DAILY PO 12/28/24 10:00 12/28/24 10:33 10 MG Apixaban 5 mg BID PO 12/28/24 10:00 12/28/24 10:32 5 MG Examination Pt is lying on bed General Appearance: Alert, Oriented X3, Cooperative, Mild distress HEENT: Atraumatic, Mucous membranes moist/pink Respiratory: Clear to auscultation, Normal air movement, No added sounds Cardiovascular: Regular rate, Normal S1, Normal S2, No murmurs Abdominal/ : Active bowel sounds, Soft, no distention, right upper abdomen tenderness, tenderness present over right lower ribs Extremities:bilateral lower extremity skin erythematous with Multiple small ulcers noted at the anterior surfaces of both legs, left 2nd toe amputated. Skin: No Significant rash, except past surgical scars Neuro: Normal speech, mild right-sided weakness, peripheral vision loss in both eyes, right lateral rectus muscle weak, Ataxic gait. Psych/Mental Status: Mental status NL, Mood NL Nurse was there as intake counselor during examination laboratory and microbiology Laboratory Tests 12/28/24 09:25 Test 12/28/24 09:25 Range/Units Serum Glucose 189 H 74-106 mg/dL Labs and/or images reviewed: Labs reviewed by me, Image(s) reviewed by me Problem List/Assessment/Plan Problem List/Assessment/Plan Chest pain rule out ACS Atrial fibrillation -EKG: AFib -troponin 13 -nitroglycerin, morphine, oxygen given -Eliquis 5 mg p.o. b.i.d. for AFib CHF with minimally reduced EF echo-LVEF borderline 45-50%, mild global hypokinesis. Mild LVH Right ventricle mildly hypokinetic. Device lead present Moderate right and left atria dilation ruled out PE Ddimer-8.53 CTA-No evidence for large pulmonary embolism. 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 Endograft extends into the proximal abdominal aorta. Aneurysm sac measures 5.2 cm in the thoracic aorta and 4.9 cm in the proximal abdominal aorta. This is inadequately characterized due to the majority of contrast being within the pulmonary artery circulation. 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 Brain aneurysm status post coiling Uncontrolled diabetes mellitus Lantus 20 units Insulin sliding scale Uncontrolled hypertension Aortic dissection status post stent placement Amlodipine 10 mg p.o. daily Carvedilol 3.25 daily Peripheral arterial disease/hyperlipidemia Lipitor 40 mg Social Unstable housing and assistance for mobility (Wheelchair, Walker? ) due to fall risk GI prophylaxis: Pantoprazole DVT prophylaxis: Eliquis Diet: Cardiac Goals of care discussed with the patient for more than 27 minutes: Full code status Case discussed with Dr Skinner, patient and RN Plan discussed with: Patient, Other (RN) Plan discussed with: Patient Date of Service: Dec 28, 2024 Billing Provider: DEEPTI SKINNER MD Common Visit Codes: [id number] INP/OBS CARE(HIGH) Secondary Visit Codes: [id number] CARE PLAN 30 MINUTES HARJEET BARKER RESIDENT Dec 28, 2024 17:14 DEEPTI SKINNER MD Jan 01, 2025 19:23
[2024-12-28] MEDS: IOHEXOL 350 MG/ML 100ML IJ ONE (17:29)
[2024-12-28] MEDS: ONDANSETRON HCL 4 MG/2 ML VIAL IV ONE (17:29)
[2024-12-28] MEDS: MORPHINE SULFATE 4 MG/ML SYR/VIAL IV ONE (17:29)
[2024-12-28 18:03] LABS: Urine Protein, UAD TRACE (Negative)
[2024-12-28 18:13] LABS: Cannabinoid Screen, Urine Pos (NEGATIVE)
[2024-12-28 18:15] LABS: Amphetamine Screen, Urine Neg (NEGATIVE); Barbiturate Scree,Urine Neg (NEGATIVE); Benzodiazephine Screen, Urine Neg (NEGATIVE); Cocaine Screen, Urine Neg (NEGATIVE); Opiate Scree,Urine Neg (NEGATIVE); Phencyclidine Screen, Urine Neg (NEGATIVE)
[2024-12-28 18:43] LABS: Chloride 106 mmol/L (98-107); Potassium 3.7 mmol/L (3.5-5.1); Sodium 142 mmol/L (136-145)
[2024-12-28 18:44] LABS: Anion Gap 8 (5-15); Calcium 9.8 mg/dL (8.7-10.4); Carbon Dioxide 28 mmol/L (20-31)
[2024-12-28 18:49] LABS: BUN/Creatinine Ratio 18.6 (10.0-20.0); Blood Urea Nitrogen 18 mg/dL (9-23); Glucose 92 mg/dL (74-106)
[2024-12-28] MEDS: HYDROcodone-ACET 5/325MG TAB PO ONE (22:20)
[2024-12-29] VITALS (7 sets, daily range): BP systolic 114–142; BP diastolic 74–89; PULSE 62–77; RESP 16–19; TEMP 97.8–98.1; O2SAT 92–97
[2024-12-29 06:55] LABS: Hematocrit 37.9 % (41.0-53.0); Hemoglobin 13.0 g/dL (13.5-17.5); Mean Corpuscular Hemoglobin 28.4 pg (28.0-32.0); Mean Corpuscular Volume 82.7 fL (80.0-100.0); Nucleated Red Blood Cells % 0.2 %
[2024-12-29 07:03] LABS: Albumin 3.8 g/dL (3.2-4.8); Alkaline Phosphatase 81 U/L (46-116); Anion Gap 10 (5-15); BUN/Creatinine Ratio 14.0 (10.0-20.0); Bilirubin, Total 0.5 mg/dL (0.2-1.0); Blood Urea Nitrogen 15 mg/dL (9-23); Calcium 9.3 mg/dL (8.7-10.4); Carbon Dioxide 24 mmol/L (20-31); Chloride 107 mmol/L (98-107); Sodium 141 mmol/L (136-145); Total Protein 6.7 g/dL (5.7-8.2)
[2024-12-29 07:12] LABS: Alanine Aminotransferase 49 U/L (7-40); Glucose 168 mg/dL (74-106); Potassium 3.4 mmol/L (3.5-5.1)
--- NOTE | 2024-12-29 17:05 | DVHPNRES ---
Progress Note Date Seen: Dec 29, 2024 Resident Creating Document: HARJEET BARKER RESIDENT Medical Necessity Reason Pt with a Central, PICC or Fol: No Subjective Review of Systems This is a 69-year-old male with history of repair of aortic dissection with stent placed, atrial fibrillation with dual-chamber left-sided pacemaker in place on Eliquis, cerebrovascular accident with some neurologic deficits, peripheral arterial disease status post left 2nd toe amputation, uncontrolled diabetes mellitus because of nonadherence to medication and hypertension who presented to the ER with the complaints of dizziness followed by fall twice.He said he dizzy while walking and has to sit to regain balance. He also had right- sided lower chest pain for the same duration. He also reports having increasing weakness in the legs. The pain is sharp and aching in nature, worse with movement, deep breathing or coughing. He denies any associated shortness of breath, abdominal pain, nausea, vomiting or any other complaints. He endorsed ataxic gait during history taking and examination. He still complains of dizziness and has an unsteady gait on trying to walk. He has pain below the rib cage on both sides. His carotid Doppler revealed decreased velocity within left vertebral artery. His echo revealed EF of 45- 50%. He is pending CT angiography of the head and neck tomorrow to rule out stenosis. Past medical history: Hypertension, diabetes mellitus,cerebrovascular accident with remaining neurologic deficits, peripheral neuropathy Past surgical history: Aortic dissection with stent placed (12 years ago) , atrial fibrillation with dual-chamber left-sided pacemaker in place (10 years ago),peripheral arterial disease status post left 2nd toe amputation Home medications: Eliquis, Lipitor Allergies: None Family history: Multiple siblings of coronary artery disease Social history: Lives in a travel trailer, does not have a wheelchair or walker Smoking history: 50 pack year smoking history, smoking 3-4 packs of cigarettes since 17 years of age Alcohol history: heavy drinking for 25 years Drugs history: None PCP: Dr. Erickson Dillard Code status: Full code Allergies: no known allergies Patient seen and examined at bedside. Patient is alert and oriented to time, place person and responding to all questions. He complains of dizziness. Eyes: No Pain, No Vision change, No Conjunctivae inflammation, No Eyelid inflammation, No Other, No Redness ENT: No Ear pain, No Ear discharge, No Nose pain, No Nose discharge, No Nose congestion, No Mouth pain, No Mouth swelling, No Throat pain, No Throat swelling, No Other Cardiovascular: Chest Pain, No Palpitations, No Orthopnea, No Paroxysmal No Dyspnea, No Edema, No Lt Headedness, No Other Respiratory: No Cough, No Dry,no Shortness of breath, No SOB with exertion, No Wheezing, No Hemoptysis, No Pleuritic Pain, No Sputum, No Other Gastrointestinal: No Nausea, No Vomiting, No Abdominal Pain, No Diarrhea, No Constipation, No Melena, No Hematochezia, No Other Genitourinary: No Dysuria, No Frequency, No Incontinence, No Hematuria, No Retention, No Other Objective vital signs Vital Sign Date Time Temp Pulse Resp B/P (MAP) Pulse Ox O2 Delivery O2 Flow Rate FiO2 12/29/24 13:00 98.0 64 19 133/80 (97) 97 98.0 12/29/24 07:56 Room Air* 0 21 Total Intake and Output 12/28/24 12/28/24 12/29/24 15:00 23:00 07:00 Intake Total 1250 ml 500 ml Output Total 1600 ml Balance -350 ml 500 ml medications Current Medications Medications Dose Ordered Sig/Stefanie Route Start Time Stop Time Status Last Admin Dose Admin Nitroglycerin 0.4 mg Q5MINP PRN SL 12/28/24 00:30 Morphine Sulfate 2 mg Q30M PRN IV 12/28/24 00:30 Diagnostic Test (Pha) 1 strip ACHS 12/28/24 07:00 12/29/24 06:33 1 STRIP Insulin Human Regular ACHS SC 12/28/24 07:00 12/29/24 06:36 2 UNITS Dextrose 50 ml UD PRN IV 12/28/24 01:30 Carvedilol 3.125 mg DAILY PO 12/28/24 10:00 12/29/24 08:55 3.125 MG Amlodipine Besylate 10 mg DAILY PO 12/28/24 10:00 12/29/24 08:56 10 MG Apixaban 5 mg BID PO 12/28/24 10:00 12/29/24 08:53 5 MG Examination Pt is lying on bed General Appearance: Alert, Oriented X3, Cooperative, Mild distress HEENT: Atraumatic, Mucous membranes moist/pink Respiratory: Clear to auscultation, Normal air movement, No added sounds Cardiovascular: Regular rate, Normal S1, Normal S2, No murmurs Abdominal/ : Active bowel sounds, Soft, no distention, right upper abdomen tenderness, tenderness present over right lower ribs Extremities:bilateral lower extremity skin erythematous with Multiple small ulcers noted at the anterior surfaces of both legs, left 2nd toe amputated. Skin: No Significant rash, except past surgical scars Neuro: Normal speech, mild right-sided weakness, peripheral vision loss in both eyes, right lateral rectus muscle weak, Ataxic gait. Psych/Mental Status: Mental status NL, Mood NL Nurse was there as core cutter and reamer during examination laboratory and microbiology Laboratory Tests 12/29/24 06:05 Test 12/29/24 06:05 Range/Units Serum Glucose 168 H 74-106 mg/dL Labs and/or images reviewed: Labs reviewed by me, Image(s) reviewed by me Problem List/Assessment/Plan Problem List/Assessment/Plan Chest pain rule out ACS Atrial fibrillation -EKG: AFib -troponin 13 -nitroglycerin, morphine, oxygen given -Eliquis 5 mg p.o. b.i.d. for AFib CHF with minimally reduced EF echo-LVEF borderline 45-50%, mild global hypokinesis. Mild LVH Right ventricle mildly hypokinetic. Device lead present Moderate right and left atria dilation ruled out PE Ddimer-8.53 CTA-No evidence for large pulmonary embolism. 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 Endograft extends into the proximal abdominal aorta. Aneurysm sac measures 5.2 cm in the thoracic aorta and 4.9 cm in the proximal abdominal aorta. This is inadequately characterized due to the majority of contrast being within the pulmonary artery circulation. ? 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 Brain aneurysm status post coiling Uncontrolled diabetes mellitus Lantus 20 units Insulin sliding scale Uncontrolled hypertension Aortic dissection status post stent placement Amlodipine 10 mg p.o. daily Carvedilol 3.25 daily Peripheral arterial disease/hyperlipidemia Lipitor 40 mg Social Unstable housing and assistance for mobility (Wheelchair, Walker? ) due to fall risk GI prophylaxis: Pantoprazole DVT prophylaxis: Eliquis Diet: Cardiac Goals of care discussed with the patient for more than 27 minutes: Full code status Case discussed with Dr Skinner, patient and RN Plan discussed with: Patient, Other (RN) Plan discussed with: Patient Date of Service: Dec 29, 2024 Billing Provider: DEEPTI SKINNER MD Common Visit Codes: [id number] INP/OBS CARE(HIGH) MJHARJEET LIPSCOMB RESIDENT Dec 29, 2024 17:05 DEEPTI SKINNER MD Jan 01, 2025 19:23
[2024-12-30] VITALS (7 sets, daily range): BP systolic 117–152; BP diastolic 72–91; PULSE 65–80; RESP 14–18; TEMP 97.6–98.5; O2SAT 95–98
[2024-12-30 07:59] LABS: Hematocrit 42.1 % (41.0-53.0); Hemoglobin 14.6 g/dL (13.5-17.5); Mean Corpuscular Hemoglobin 28.6 pg (28.0-32.0); Mean Corpuscular Volume 82.4 fL (80.0-100.0); Nucleated Red Blood Cells % 0.1 %
[2024-12-30 08:00] LABS: Potassium 3.6 mmol/L (3.5-5.1); Sodium 142 mmol/L (136-145)
[2024-12-30 08:01] LABS: Anion Gap 8 (5-15); Calcium 9.7 mg/dL (8.7-10.4); Carbon Dioxide 27 mmol/L (20-31)
[2024-12-30 08:02] LABS: Chloride 107 mmol/L (98-107)
[2024-12-30 08:06] LABS: BUN/Creatinine Ratio 14.6 (10.0-20.0); Blood Urea Nitrogen 14 mg/dL (9-23)
[2024-12-30 08:09] LABS: Glucose 126 mg/dL (74-106)
--- NOTE | 2024-12-30 13:37 | DVH ---
CLINICAL HISTORY: s/p fall TECHNIQUE: Helical scanning was performed of the head from the skull base to the vertex. Multiplanar reconstructions were performed. This exam was performed according to our departmental dose optimizat ion program. Up-to-date CT equipment and radiation dose reduction techniques are utilized as appropri ate. CTDI 59.2 DLP 165.8 COMPARISON: CT HEAD WITHOUT CONTRAST on DOS: 12/27/24 FINDINGS: There is no evidence for acute intracranial hemorrhage, acute ischemic changes, mass, mass effect, or extra-axial fluid collection. There is no hydrocephalus or midline shift. There is no effacement of the cerebral sulci and basal subarachnoid cisterns. The dickson-white matter differentiation is well brittani ntained. There is high density material at the left anterior middle cranial fossa immediately. There is mild brain volume loss and minimal chronic small vessel schema changes. The imaged paranasal sinuses are c DEMONSTRATE MILD RIGHT AND MINIMAL LEFT MAXILLARY SINUS MUCOSAL TH ICKENING. IMPRESSION: STABLE EXAM. NO ACUTE INTRACRANIAL ABNORMALITY SEEN.
--- NOTE | 2024-12-30 14:14 | DVH ---
EXAM: CT ANGIO HEAD/NECK DATE OF SERVICE: 12/30/2024 01:02 PM ORDERING PHYSICIAN: HARJEET BARKER REASON FOR EXAM: decreased velocity in left vertebral artery, dizziness TECHNIQUE: CTA of the brain and neck was performed after the administration of contrast . Axial imag es of the head and neck are obtained. Coronal and sagittal images were then reformatted for review. M IP reformats were obtained and reviewed. COMPARISON: Carotid ultrasound 12/28/2024 FINDINGS: FINDINGS: The right common carotid artery demonstrates no high-grade stenosis. Mild calcification of the right carotid bulb. Right internal carotid artery demonstrates no high-grade stenosis. Right middle cerebral artery demonstrates no high-grade stenosis. The right anterior cerebral artery demonstrates no high-grade stenosis. The left common carotid artery demonstrates no high-grade stenosis. Mild calcification of the left ca rotid bulb. Left internal carotid artery demonstrates no high-grade stenosis. The left middle cerebral artery demonstrates no high-grade stenosis. The left anterior cerebral artery demonstrates no high-grade stenosis. The right vertebral artery is dominant and demonstrates no high-grade stenosis. 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 The proximal d escending thoracic aorta measures up to 5.6 cm in diameter with eccentric mural wall thrombus, incomp letely characterized. There is occlusion of the proximal left vertebral artery. There is reconstitut ion of the mid to distal V2 segment which is overall poorly opacified and extremely small in caliber. Basilar artery demonstrates no high-grade stenosis. The bilateral posterior cerebral arteries demonstrate no high-grade stenosis. Moderate to advanced cervical degenerative disc disease. Pulmonary emphysematous changes. IMPRESSION: No large vessel high-grade stenosis of the anterior circulation. 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 Overall small caliber of the V 2, V3, V4 segments which demonstrates minimal filling. Dominant right vertebral artery. Aneurysmal dilatation of the aortic arch proximal descending thoracic aorta up to 5.6 cm. Aortic endo graft. No flow seen external to the endograft along the proximal thoracic aorta visualized component .
[2024-12-30] MEDS: IOHEXOL 350 MG/ML 100ML IJ ONE (15:31)
--- NOTE | 2024-12-30 17:59 | DVHPNRES ---
Progress Note Date Seen: Dec 30, 2024 Resident Creating Document: HARJEET BARKER RESIDENT Medical Necessity Reason Pt with a Central, PICC or Fol: No Subjective Review of Systems This is a 69-year-old male with history of repair of aortic dissection with stent placed, atrial fibrillation with dual-chamber left-sided pacemaker in place on Eliquis, cerebrovascular accident with some neurologic deficits, peripheral arterial disease status post left 2nd toe amputation, uncontrolled diabetes mellitus because of nonadherence to medication and hypertension who presented to the ER with the complaints of dizziness followed by fall twice.He said he dizzy while walking and has to sit to regain balance. He also had right- sided lower chest pain for the same duration. He also reports having increasing weakness in the legs. The pain is sharp and aching in nature, worse with movement, deep breathing or coughing. He denies any associated shortness of breath, abdominal pain, nausea, vomiting or any other complaints. He endorsed ataxic gait during history taking and examination. He still complains of dizziness and has an unsteady gait on trying to walk. He has pain below the rib cage on both sides. His carotid Doppler revealed decreased velocity within left vertebral artery. His echo revealed EF of 45- 50%. He is pending CT angiography of the head and neck tomorrow to rule out stenosis. The patient mentioned that he had a fall in the bathroom this morning while trying to wash his hands and he hit the back of his head on the wall. He mentions he did not lose consciousness. 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 Head CT was done which was unremarkable. Patient is stable. Vascular surgery will be consulted for the same. Past medical history: Hypertension, diabetes mellitus,cerebrovascular accident with remaining neurologic deficits, peripheral neuropathy Past surgical history: Aortic dissection with stent placed (12 years ago) , atrial fibrillation with dual-chamber left-sided pacemaker in place (10 years ago),peripheral arterial disease status post left 2nd toe amputation Home medications: Eliquis, Lipitor Allergies: None Family history: Multiple siblings of coronary artery disease Social history: Lives in a travel trailer, does not have a wheelchair or walker Smoking history: 50 pack year smoking history, smoking 3-4 packs of cigarettes since 17 years of age Alcohol history: heavy drinking for 25 years Drugs history: None PCP: Dr. Erickson Dillard Code status: Full code Allergies: no known allergies Patient seen and examined at bedside. Patient is alert and oriented to time, place person and responding to all questions. He complains of dizziness. Eyes: No Pain, No Vision change, No Conjunctivae inflammation, No Eyelid inflammation, No Other, No Redness ENT: No Ear pain, No Ear discharge, No Nose pain, No Nose discharge, No Nose congestion, No Mouth pain, No Mouth swelling, No Throat pain, No Throat swelling Cardiovascular: Chest Pain, No Palpitations, No Orthopnea, No Paroxysmal No Dyspnea, No Edema, No Lt Headedness Respiratory: No Cough, No Dry,no Shortness of breath, No SOB with exertion, No Wheezing, No Hemoptysis, No Pleuritic Pain, No Sputum Gastrointestinal: No Nausea, No Vomiting, No Abdominal Pain, No Diarrhea, No Constipation, No Melena, No Hematochezia Genitourinary: No Dysuria, No Frequency, No Incontinence, No Hematuria, No Retention Objective vital signs Vital Sign Date Time Temp Pulse Resp B/P (MAP) Pulse Ox O2 Delivery O2 Flow Rate FiO2 12/30/24 16:48 97.8 80 16 117/76 (90) 98 97.8 12/30/24 08:00 Room Air* 0 21 Total Intake and Output 12/29/24 12/29/24 12/30/24 15:00 23:00 07:00 Intake Total 952 ml 200 ml 240 ml Balance 952 ml 200 ml 240 ml medications Current Medications Medications Dose Ordered Sig/Stefanie Route Start Time Stop Time Status Last Admin Dose Admin Nitroglycerin 0.4 mg Q5MINP PRN SL 12/28/24 00:30 Morphine Sulfate 2 mg Q30M PRN IV 12/28/24 00:30 Diagnostic Test (Pha) 1 strip ACHS 12/28/24 07:00 12/30/24 16:49 1 STRIP Insulin Human Regular ACHS SC 12/28/24 07:00 12/29/24 21:16 2 UNITS Dextrose 50 ml UD PRN IV 12/28/24 01:30 Carvedilol 3.125 mg DAILY PO 12/28/24 10:00 12/30/24 09:14 3.125 MG Amlodipine Besylate 10 mg DAILY PO 12/28/24 10:00 12/30/24 09:15 10 MG Apixaban 5 mg BID PO 12/28/24 10:00 12/30/24 09:15 5 MG Acetaminophen/ Hydrocodone Bitart 1 tab Q6HPRN PRN PO 12/30/24 11:15 laboratory and microbiology Laboratory Tests 12/30/24 07:26 Test 12/30/24 07:26 Range/Units Serum Glucose 126 H 74-106 mg/dL Labs and/or images reviewed: Labs reviewed by me, Image(s) reviewed by me Problem List/Assessment/Plan Problem List/Assessment/Plan Chest pain rule out ACS Atrial fibrillation -EKG: AFib -troponin 13 -nitroglycerin, morphine, oxygen given -Eliquis 5 mg p.o. b.i.d. for AFib CHF with minimally reduced EF echo-LVEF borderline 45-50%, mild global hypokinesis. Mild LVH Right ventricle mildly hypokinetic. Device lead present Moderate right and left atria dilation ruled out PE Ddimer-8.53 CTA-No evidence for large pulmonary embolism. 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 Endograft extends into the proximal abdominal aorta. Aneurysm sac measures 5.2 cm in the thoracic aorta and 4.9 cm in the proximal abdominal aorta. This is inadequately characterized due to the majority of contrast being within the pulmonary artery circulation. 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 Brain aneurysm status post coiling Uncontrolled diabetes mellitus Lantus 20 units Insulin sliding scale Uncontrolled hypertension Aortic dissection status post stent placement Amlodipine 10 mg p.o. daily Carvedilol 3.25 daily Peripheral arterial disease/hyperlipidemia Lipitor 40 mg Presyncope Social Unstable housing and assistance for mobility (Wheelchair, Walker? ) due to fall risk GI prophylaxis: Pantoprazole DVT prophylaxis: Eliquis Diet: Cardiac Goals of care discussed with the patient for more than 27 minutes: Full code status Case discussed with Dr Skinner, patient and RN Plan discussed with: Patient, Other (RN) Plan discussed with: Patient My Orders My Orders Orders - HARJEET BARKER RESIDENT Procedure Category Date Status Time Angio Head/Neck CT 12/30/24 Resulted 07:49 Date of Service: Dec 30, 2024 Billing Provider: DEEPTI SKINNER MD Common Visit Codes: [id number] INP/OBS CARE(HIGH) HARJEET BARKER RESIDENT Dec 30, 2024 17:59 DEEPTI SKINNER MD Jan 01, 2025 19:24
[2024-12-30] MEDS: HYDROcodone-ACET 5/325MG TAB PO PRN (18:04)
[2024-12-31] VITALS (11 sets, daily range): BP systolic 108–152; BP diastolic 60–113; PULSE 62–98; RESP 16–18; TEMP 97.5–97.8; O2SAT 96–99
[2024-12-31 08:02] LABS: Hematocrit 40.8 % (41.0-53.0); Hemoglobin 14.2 g/dL (13.5-17.5); Mean Corpuscular Hemoglobin 28.8 pg (28.0-32.0); Mean Corpuscular Volume 82.8 fL (80.0-100.0); Nucleated Red Blood Cells % 0.1 %
[2024-12-31 08:04] LABS: Anion Gap 9 (5-15); Carbon Dioxide 27 mmol/L (20-31); Chloride 106 mmol/L (98-107); Potassium 3.4 mmol/L (3.5-5.1); Sodium 142 mmol/L (136-145)
[2024-12-31 08:06] LABS: Calcium 9.4 mg/dL (8.7-10.4)
[2024-12-31 08:10] LABS: BUN/Creatinine Ratio 14.7 (10.0-20.0); Blood Urea Nitrogen 15 mg/dL (9-23)
[2024-12-31 08:11] LABS: Glucose 111 mg/dL (74-106)
--- NOTE | 2024-12-31 10:18 | DVHPNRES ---
Progress Note Date Seen: Dec 31, 2024 Resident Creating Document: ROSE KATHLEEN Medical Necessity Reason Pt with a Central, PICC or Fol: No Subjective Review of Systems This is a 69-year-old male with history of repair of aortic dissection with stent placed, atrial fibrillation with dual-chamber left-sided pacemaker in place on Eliquis, cerebrovascular accident with some neurologic deficits, peripheral arterial disease status post left 2nd toe amputation, uncontrolled diabetes mellitus because of nonadherence to medication and hypertension who presented to the ER with the complaints of dizziness followed by fall twice.He said he dizzy while walking and has to sit to regain balance. He also had right- sided lower chest pain for the same duration. He also reports having increasing weakness in the legs. The pain is sharp and aching in nature, worse with movement, deep breathing or coughing. He denies any associated shortness of breath, abdominal pain, nausea, vomiting or any other complaints. He endorsed ataxic gait during history taking and examination. He still complains of dizziness and has an unsteady gait on trying to walk. He has pain below the rib cage on both sides. His carotid Doppler revealed decreased velocity within left vertebral artery. His echo revealed EF of 45- 50%. He is pending CT angiography of the head and neck tomorrow to rule out stenosis. The patient mentioned that he had a fall in the bathroom this morning while trying to wash his hands and he hit the back of his head on the wall. He mentions he did not lose consciousness. 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 Head CT was done which was unremarkable. Patient is stable. Vascular surgery will be consulted for the same. Patient reports same symptoms such as dizziness and headache. Neurology consultation has been requested but is pending at this time. Past medical history: Hypertension, diabetes mellitus,cerebrovascular accident with remaining neurologic deficits, peripheral neuropathy Past surgical history: Aortic dissection with stent placed (12 years ago) , atrial fibrillation with dual-chamber left-sided pacemaker in place (10 years ago),peripheral arterial disease status post left 2nd toe amputation Home medications: Eliquis, Lipitor Allergies: None Family history: Multiple siblings of coronary artery disease Social history: Lives in a travel trailer, does not have a wheelchair or walker Smoking history: 50 pack year smoking history, smoking 3-4 packs of cigarettes since 17 years of age Alcohol history: heavy drinking for 25 years Drugs history: None PCP: Dr. Erickson Dillard Code status: Full code Allergies: no known allergies Patient seen and examined at bedside. Patient is alert and oriented to time, place person and responding to all questions. He complains of dizziness. Eyes: No Pain, No Vision change, No Conjunctivae inflammation, No Eyelid inflammation, No Other, No Redness ENT: No Ear pain, No Ear discharge, No Nose pain, No Nose discharge, No Nose congestion, No Mouth pain, No Mouth swelling, No Throat pain, No Throat swelling Cardiovascular: Chest Pain, No Palpitations, No Orthopnea, No Paroxysmal No Dyspnea, No Edema, No Lt Headedness Respiratory: No Cough, No Dry,no Shortness of breath, No SOB with exertion, No Wheezing, No Hemoptysis, No Pleuritic Pain, No Sputum Gastrointestinal: No Nausea, No Vomiting, No Abdominal Pain, No Diarrhea, No Constipation, No Melena, No Hematochezia Genitourinary: No Dysuria, No Frequency, No Incontinence, No Hematuria, No Retention Objective vital signs Vital Sign Date Time Temp Pulse Resp B/P (MAP) Pulse Ox O2 Delivery O2 Flow Rate FiO2 12/31/24 09:44 98 142/86 (104) 12/31/24 09:00 97.5 17 98 97.5 12/30/24 20:00 Room Air* 0 21 Total Intake and Output 12/30/24 12/30/24 12/31/24 15:00 23:00 07:00 Intake Total 820 ml 400 ml Balance 820 ml 400 ml medications Current Medications Medications Dose Ordered Sig/Stefanie Route Start Time Stop Time Status Last Admin Dose Admin Nitroglycerin 0.4 mg Q5MINP PRN SL 12/28/24 00:30 Morphine Sulfate 2 mg Q30M PRN IV 12/28/24 00:30 Diagnostic Test (Pha) 1 strip ACHS 12/28/24 07:00 12/31/24 05:56 1 STRIP Insulin Human Regular ACHS SC 12/28/24 07:00 12/30/24 21:31 4 UNITS Dextrose 50 ml UD PRN IV 12/28/24 01:30 Carvedilol 3.125 mg DAILY PO 12/28/24 10:00 12/31/24 09:10 3.125 MG Amlodipine Besylate 10 mg DAILY PO 12/28/24 10:00 12/31/24 09:09 10 MG Apixaban 5 mg BID PO 12/28/24 10:00 12/31/24 09:08 5 MG Acetaminophen/ Hydrocodone Bitart 1 tab Q6HPRN PRN PO 12/30/24 11:15 12/30/24 18:04 1 TAB Examination General Appearance: Alert, Oriented X3, Cooperative, Mild distress HEENT: Atraumatic, Mucous membranes moist/pink Respiratory: Clear to auscultation, Normal air movement, No added sounds Cardiovascular: Regular rate, Normal S1, Normal S2, No murmurs Abdominal/ : Active bowel sounds, Soft, no distention, right upper abdomen tenderness, tenderness present over right lower ribs Extremities:bilateral lower extremity skin erythematous with Multiple small ulcers noted at the anterior surfaces of both legs, left 2nd toe amputated. Skin: No Significant rash, except past surgical scars Neuro: Normal speech, mild right-sided weakness, peripheral vision loss in both eyes, right lateral rectus muscle weak, Ataxic gait. Psych/Mental Status: Mental status NL, Mood NL Nurse was there as karate black belt during examination laboratory and microbiology Laboratory Tests 12/31/24 06:26 Test 12/31/24 06:26 Range/Units Serum Glucose 111 H 74-106 mg/dL Labs and/or images reviewed: Labs reviewed by me, Image(s) reviewed by me Problem List/Assessment/Plan Problem List/Assessment/Plan Chest pain rule out ACS Atrial fibrillation -EKG: AFib -troponin 13 -nitroglycerin, morphine, oxygen given -Eliquis 5 mg p.o. b.i.d. for AFib CHF with minimally reduced EF echo-LVEF borderline 45-50%, mild global hypokinesis. Mild LVH Right ventricle mildly hypokinetic. Device lead present Moderate right and left atria dilation ruled out PE Ddimer-8.53 CTA-No evidence for large pulmonary embolism. 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 Endograft extends into the proximal abdominal aorta. Aneurysm sac measures 5.2 cm in the thoracic aorta and 4.9 cm in the proximal abdominal aorta. This is inadequately characterized due to the majority of contrast being within the pulmonary artery circulation. Left Vertebral artery stenosis Carotid Doppler showed decreased velocity within left vertebral artery which may indicate stenosis CT angiography of head and neck to rule out vertebral artery stenosis Head CT: STABLE EXAM. NO ACUTE INTRACRANIAL ABNORMALITY SEEN. 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 Overall small caliber of the V 2, V3, V4 segments which demonstrates minimal filling. Dominant right vertebral artery. Aneurysmal dilatation of the aortic arch proximal descending thoracic aorta up to 5.6 cm. Aortic endograft. No flow seen external to the endograft along the proximal thoracic aorta visualized component. Uncontrolled diabetes mellitus Lantus 20 units Insulin sliding scale Uncontrolled hypertension Aortic dissection status post stent placement Amlodipine 10 mg p.o. daily Carvedilol 3.25 daily Peripheral arterial disease/hyperlipidemia Lipitor 40 mg Social Unstable housing and assistance for mobility (Wheelchair, Walker? ) due to fall risk GI prophylaxis: Pantoprazole DVT prophylaxis: Eliquis Diet: Cardiac Goals of care discussed with the patient for more than 27 minutes: Full code status Case discussed with Dr Skinner, patient and RN Plan discussed with: Patient My Orders My Orders Orders - ROSE KATHLEEN Procedure Category Date Status Time * Neurology Consult CONS 12/31/24 Transmitted 09:32 Consult CONS 12/31/24 Transmitted Vascular/Endovascular 09:32 Date of Service: Dec 31, 2024 Billing Provider: DEEPTI SKINNER MD Common Visit Codes: [id number] INP/OBS CARE(HIGH) ROSE KATHLEEN Dec 31, 2024 10:18 HARJEET BARKER Jan 01, 2025 06:35 DEEPTI SKINNER MD Jan 01, 2025 19:24
--- NOTE | 2024-12-31 18:52 | DVHINCON2 ---
Date of service: Dec 31, [address] Alonso Reason for Consultation Oxygen of left vertebral artery V1 and paroxysmal to mid V2 segment History of Present Illness Mr. Loredo with a 70 years old right-handed gentleman with a history of hypertension, diabetes, coronary artery disease, atrial fibrillation, deg dissection, he came to the [facility] on 12/27/2024 weakness, frequent fall. At this time, he is alert, oriented x3, but is a poor historian. He provided the following history He reported that he has right-sided weakness, gait disturbance/frequent fall, double vision in the last 14 months with no changes 14 months, he developed acute right-sided weakness, double vision, he was treated in the hospital in [facility], he does not remember the details of treatment, but he was said to have brain aneurysm, and he had a treatment using access from the groin area to glue his brain. Since the stroke, he has double vision, gait disturbance, frequent falls (to left side, and he has had 200 falls at least since). He drove to [facility] about 40 days to help his friend, and during this time, he has been hospitalized to [facility], [facility], and a hospital in the [place]. He does not remember how he was treated He was found to have atrial fibrillation, he has been on Eliquis twice daily for 10 month For about two years, he has tingling, numbness, shooting/burning pain in the feet, he was said to have polyneuropathy UDS, 12/28/2024: Cannabinoids CBC, 12/31/2024: Unremarkable CMP, 12/29/2024: Unremarkable Vitamin B12, 12/28/2024: 374 TSH, 12/28/2024: 1.01 Carotid Doppler, 12/28/2024: No hemodynamically significant stenosis by velocity criteria of the internal carotid arteries. Decreased velocity within the left vertebral artery may indicate hemodynamically significant stenosis CT head, 12/27/2024: 1. No CT evidence of acute intracranial abnormality. 2. Foreign body in the anterior aspect of the left anterior cranial fossa with associated beam hardening artifact as described above, of uncertain etiology. Correlate with clinical findings. CT head, 12/30/2024: STABLE EXAM. NO ACUTE INTRACRANIAL ABNORMALITY SEEN Past Medical History Hypertension, diabetes, coronary artery disease, atrial fibrillation, angina, aortic dissection, brain aneurysm Past Surgical History Pacemaker insertion, PTCA, aortic artery dissection status post stent Family History: FH: heart disease G8 FATHER Family History Heart disease Social History He smokes, but denies a history of drug/alcohol abuse. He tells me he has run out of his money, his car is broken Allergies: Coded Allergies: NO KNOWN ALLERGIES (Unverified , 12/27/24) Home Meds Reported Medications Amlodipine Besylate (Amlodipine Besylate) 5 Mg Tab, 10 MG PO DAILY for 30 Days, MG 12/28/24 Apixaban Base (ELIQUIS) 5 Mg Tab, 5 MG PO BID, TAB 12/28/24 Review of Systems As above, the other systems are negative Vital Signs Vital Signs Date Time Temp Pulse Resp B/P (MAP) Pulse Ox O2 Delivery O2 Flow Rate FiO2 12/31/24 17:35 97.5 64 17 134/83 (100) 99 97.5 12/31/24 08:00 Room Air* 0 21 Physical Exam GENERAL EXAM: General: the patient is well developed and nourished. No acute distress. HEENT: Normocephalic, neck is supple, no carotid bruits. No mass. The throat is Mallampati grade RESPIRATORY: Normal respiratory effort with symmetrical lung expansion. Lungs clear to auscultation. CARDIOVASCULAR: Regular rate and rhythm with no murmurs. S1, S2. ABDOMEN: Soft, nontender, normal bowel sound MUSCULOSKELETAL EXAM: Status post left toe amputation, bilateral hammertoes, multiple superficial skin lesions of different age in the feet NEUROLOGICAL: MENTAL STATUS: Awake and alert. Oriented to person, place, time and general circumstances. Poor historian SPEECH, LANGUAGE, HIGHER CORTICAL FUNCTION: no aphasia or dysathria. CRANIAL NERVES: #2: Intact visual jones to confrontation. The optic discs were sharp. #3,4,6: Pupils are equal, round, Rt: 6mm, nonreactive. Lt: 4mm, reactive. No abduction, weakness in up and the low gazing in the right eye. Double vision with both eyes open, but without gaze evoked nystagmus #5: Facial sensation intact in all three divisions bilaterally. Mandibular strength intact. #7: Facial muscles symmetrical and strength intact. #8: Hearing grossly normal to voice. #9,10: Uvula and soft palate rise in the midline. Swallow and voice are normal. #11: Trapezius and sternomastoid strength intact bilaterally. #12: Tongue midline. No fasciculations or atrophy. SENSATION: Sensation to touch and pinprick is diminished in the right arm than leg Pinprick diminished distally in the lower extremities MOTOR: Normal tone in the upper and lower extremity. Normal muscle bulk. No fasciculations. No abnormal movements or posturing. Muscle strength feels mildly weak in the right arm than leg, REFLEXES: Deep tendon reflexes are symmetrically diminished. No pathological reflexes. CEREBELLAR/COORDINATION: Finger to nose is normal bilaterally. GAIT/STATION: deferred. Labs/Diagnostic Data Labs Test 12/31/24 16:55 12/31/24 06:26 12/29/24 06:05 12/28/24 15:30 Range/Units POC Glucose 165 H 70-106 mg/dl White Blood Count 7.4 4.4-10.8 10^3/uL Red Blood Count 4.93 4.5-5.90 10^6/uL Hemoglobin 14.2 13.5-17.5 g/dL Hematocrit 40.8 L 41.0-53.0 % Mean Corpuscular Volume 82.8 80.0-100.0 fL Mean Corpuscular Hemoglobin 28.8 28.0-32.0 pg Mean Corpuscular Hemoglobin Concent 34.7 32.0-36.0 g/dL Red Cell Distribution Width 16.6 H 11.8-14.3 % Platelet Count 163 140-450 10^3/uL Mean Platelet Volume 8.7 6.9-10.8 fL Neutrophils (%) (Auto) 67.1 37.0-80.0 % Lymphocytes (%) (Auto) 18.7 10.0-50.0 % Monocytes (%) (Auto) 10.0 0.0-12.0 % Eosinophils (%) (Auto) 3.4 0.0-7.0 % Basophils (%) (Auto) 0.8 0.0-2.0 % Neutrophils # (Auto) 5.0 1.6-8.6 10 ^3/uL Lymphocytes # (Auto) 1.4 0.4-5.4 10 ^3/uL Monocytes # (Auto) 0.7 0-1.3 10 ^3/uL Eosinophils # (Auto) 0.3 0-0.8 10 ^3/uL Basophils # (Auto) 0.1 0-0.2 10 ^3/uL Nucleated Red Blood Cells 0.1 % Sodium Level 142 136-145 mmol/L Potassium Level 3.4 L 3.5-5.1 mmol/L Chloride Level 106 98-107 mmol/L Carbon Dioxide Level 27 20-31 mmol/L Anion Gap 9 5-15 Blood Urea Nitrogen 15 9-23 mg/dL Creatinine 1.02 0.700-1.30 mg/dL Glomerular Filtration Rate Calc 80 >90 mL/min BUN/Creatinine Ratio 14.7 10.0-20.0 Serum Glucose 111 H 74-106 mg/dL Calcium Level 9.4 8.7-10.4 mg/dL Total Bilirubin 0.5 0.2-1.0 mg/dL Aspartate Amino Transferase (AST) 24 13-40 U/L Alanine Aminotransferase (ALT) 49 H 7-40 U/L Alkaline Phosphatase 81 46-116 U/L Total Protein 6.7 5.7-8.2 g/dL Albumin 3.8 3.2-4.8 g/dL Urine Color Light-yellow Yellow Urine Clarity Clear Clear Urine pH 6.5 5.0-9.0 Urine Specific [place] 1.049 H 1.001-1.035 Urine Protein Trace H Negative Urine Ketones Negative Negative Urine Blood 1+ H Negative /uL Urine Nitrite Negative Negative Urine Bilirubin Negative Negative Urine Urobilinogen Normal Negative mg/dL Urine Leukocyte Esterase Negative Negative /uL Urine RBC 12 0 - 3 /hpf Urine Microscopic WBC 1 0-3 /HPF Urine Squamous Epithelial Cells None seen <5 /hpf Urine Bacteria None seen None Seen /hpf Urine Glucose Normal Normal mg/dL Urine Opiates Screen Neg NEGATIVE Urine Fentanyl Screen Neg NEGATIVE Urine Barbiturates Screen Neg NEGATIVE Urine Phencyclidine Screen Neg NEGATIVE Urine Amphetamines Screen Neg NEGATIVE Urine Benzodiazepines Screen Neg NEGATIVE Urine Cocaine Screen Neg NEGATIVE Urine Cannabinoids Screen Pos NEGATIVE Test 12/28/24 09:25 12/28/24 01:52 12/28/24 00:19 12/27/24 21:01 Range/Units D-Dimer, Quantitative 8.53 H 0.0-0.49 mg/L FEU Vitamin B12 Level 374 211-911 pg/mL Thyroid Stimulating Hormone (TSH) 1.01 0.55-4.78 uIU/mL Influenza Type A Antigen Negative Negative Influenza Type B Antigen Negative Negative SARS-CoV-2 Antigen (Rapid) Negative NEGATIVE Troponin I High Sensitivity 14 </=54 ng/L Hemoglobin A1c 6.5 H <5.7 % A1C Magnesium Level 2.1 1.6-2.6 mg/dL B-Type Natriuretic Peptide 193.67 0-100 pg/mL Assessment Right hemiparesis, gait disturbance, diplopia, 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 Brain aneurysm status post coiling ? Cognitive dysfunction/vascular dementia Vertebral artery occlusion Diabetic polyneuropathy Plan/Recommendation Monitoring Supportive treatment Telemetry Lipid profile MRI brain scan if not c contraindicated [facility] information release Eliquis 5 mg b.i.d. Lipitor 20 mg q.d. Foot care Daily foot inspection Wide, soft and protect she was only More recommendation per clinical course Prognosis: Poor This medical document was created using an electronic medical record system with [employer] dictation system. Although this document has been carefully reviewed, there may still be some phonetic and typographical errors. These areas are purely typographical due to imperfections of the software programs, and do not reflect any compromise in the patient's medical care. Social work Re: Living condition Plan discussed with: Patient, Other TRAVIS TREVIÑO MD Dec 31, 2024 18:52
[2024-12-31] MEDS ORDERED: LORazepam 2MG/ML-1ML VIAL IV PRN (19:30)
[2024-12-31 20:13] LABS: Triglycerides 150 mg/dL (< 150)
[2024-12-31 20:15] LABS: Cholesterol 113 mg/dL (< 200)
[2024-12-31 20:17] LABS: HDL Cholesterol 28 mg/dL (40-59)
[2024-12-31] MEDS: ATORVASTATIN 20 MG TAB PO ONE (21:07)
[2025-01-01 07:14] LABS: Calcium 9.4 mg/dL (8.7-10.4); Chloride 106 mmol/L (98-107); Potassium 3.5 mmol/L (3.5-5.1); Sodium 141 mmol/L (136-145)
[2025-01-01 07:15] LABS: Anion Gap 8 (5-15); Carbon Dioxide 27 mmol/L (20-31)
[2025-01-01 07:19] LABS: Hematocrit 39.5 % (41.0-53.0); Hemoglobin 13.6 g/dL (13.5-17.5); Mean Corpuscular Hemoglobin 28.5 pg (28.0-32.0); Mean Corpuscular Volume 82.6 fL (80.0-100.0); Nucleated Red Blood Cells % 0.1 %
[2025-01-01 07:20] LABS: BUN/Creatinine Ratio 20.8 (10.0-20.0); Blood Urea Nitrogen 20 mg/dL (9-23)
[2025-01-01 07:21] LABS: Glucose 122 mg/dL (74-106)
[2025-01-01 08:00] VITALS: PULSE 70; RESP 16; O2SAT 96
[2025-01-01 09:00] VITALS: BP_SYST 127; BP_SYST 156; BP_DIAS 80; BP_DIAS 86; PULSE 81; RESP 17; TEMP 97.9; O2SAT 95; O2SAT 97
[2025-01-01 13:00] VITALS: BP 126/74; PULSE 64; RESP 17; TEMP 98; O2SAT 98
--- NOTE | 2025-01-01 14:24 | DVHPNRES ---
Progress Note Date Seen: Jan 01, 2025 Resident Creating Document: HARJEET BARKER RESIDENT Medical Necessity Reason Pt with a Central, PICC or Fol: No Subjective Review of Systems This is a 69-year-old male with history of repair of aortic dissection with stent placed, atrial fibrillation with dual-chamber left-sided pacemaker in place on Eliquis, cerebrovascular accident with some neurologic deficits, peripheral arterial disease status post left 2nd toe amputation, uncontrolled diabetes mellitus because of nonadherence to medication and hypertension who presented to the ER with the complaints of dizziness followed by fall twice.He said he got dizzy while walking and had to sit to regain balance. He also had right-sided lower chest pain for the same duration. He also reports having increasing weakness in the legs. The pain is sharp and aching in nature, worse with movement, deep breathing or coughing. He denies any associated shortness of breath, abdominal pain, nausea, vomiting or any other complaints. He endorsed ataxic gait during history taking and examination. For about two years, he has tingling, numbness, shooting/burning pain in the feet, he was said to have polyneuropathy. 12/29-He still complains of dizziness and has an unsteady gait on trying to walk. Vitals have been unstable. He has pain below the rib cage on both sides. His carotid Doppler revealed decreased velocity within left vertebral artery. His echo revealed EF of 45-50%. He is pending CT angiography of the head and neck tomorrow to rule out stenosis. 12/30-The patient mentioned that he had a fall in the bathroom this morning while trying to wash his hands and he hit the back of his head on the wall. He mentions he did not lose consciousness. 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 Head CT was done which was unremarkable. Patient is stable. Vascular surgery will be consulted for the same. 12/31- Patient reports same symptoms such as dizziness and headache. Neurology consultation has been requested but is pending at this time. 01/01-The vitals have been stable. The patient still complains of dizziness and weakness. Dr Krishnamurthy saw the patient and recommended MRI brain for the patient and added lipitor 20 mg HS to the medication regime. real estate services administrator spoke with the patient and he agreed to go to SNF for physical therapy and rehab. Past medical history: Hypertension, diabetes mellitus,cerebrovascular accident with remaining neurologic deficits, peripheral neuropathy Past surgical history: Aortic dissection with stent placed (12 years ago) , atrial fibrillation with dual-chamber left-sided pacemaker in place (10 years ago),peripheral arterial disease status post left 2nd toe amputation Home medications: Eliquis, Lipitor Allergies: None Family history: Multiple siblings of coronary artery disease Social history: Lives in a travel trailer, does not have a wheelchair or walker Smoking history: 50 pack year smoking history, smoking 3-4 packs of cigarettes since 17 years of age Alcohol history: heavy drinking for 25 years Drugs history: None PCP: Dr. Erickson Dillard Code status: Full code Allergies: no known allergies Patient seen and examined at bedside. Patient is alert and oriented to time, place person and responding to all questions. He complains of dizziness. Eyes: No Pain, No Vision change, No Conjunctivae inflammation, No Eyelid inflammation, No Other, No Redness ENT: No Ear pain, No Ear discharge, No Nose pain, No Nose discharge, No Nose congestion, No Mouth pain, No Mouth swelling, No Throat pain, No Throat swelling Cardiovascular: Chest Pain, No Palpitations, No Orthopnea, No Paroxysmal No Dyspnea, No Edema, No Lt Headedness Respiratory: No Cough, No Dry,no Shortness of breath, No SOB with exertion, No Wheezing, No Hemoptysis, No Pleuritic Pain, No Sputum Gastrointestinal: No Nausea, No Vomiting, No Abdominal Pain, No Diarrhea, No Constipation, No Melena, No Hematochezia Genitourinary: No Dysuria, No Frequency, No Incontinence, No Hematuria, No Retention Objective vital signs Vital Sign Date Time Temp Pulse Resp B/P (MAP) Pulse Ox O2 Delivery O2 Flow Rate FiO2 01/01/25 13:00 98.0 64 17 126/74 (91) 98 98.0 01/01/25 08:00 Room Air* 0 21 Total Intake and Output 12/31/24 12/31/24 01/01/25 15:00 23:00 07:00 Intake Total 750 ml 500 ml Balance 750 ml 500 ml medications Current Medications Medications Dose Ordered Sig/Stefanie Route Start Time Stop Time Status Last Admin Dose Admin Nitroglycerin 0.4 mg Q5MINP PRN SL 12/28/24 00:30 Morphine Sulfate 2 mg Q30M PRN IV 12/28/24 00:30 Diagnostic Test (Pha) 1 strip ACHS 12/28/24 07:00 01/01/25 11:28 1 STRIP Insulin Human Regular ACHS SC 12/28/24 07:00 12/31/24 21:24 4 UNITS Dextrose 50 ml UD PRN IV 12/28/24 01:30 Carvedilol 3.125 mg DAILY PO 12/28/24 10:00 01/01/25 08:22 3.125 MG Amlodipine Besylate 10 mg DAILY PO 12/28/24 10:00 01/01/25 08:22 10 MG Apixaban 5 mg BID PO 12/28/24 10:00 01/01/25 08:23 5 MG Acetaminophen/ Hydrocodone Bitart 1 tab Q6HPRN PRN PO 12/30/24 11:15 12/31/24 21:07 1 TAB Lorazepam 1 mg ONCE PRN IV 12/31/24 19:30 Atorvastatin Calcium 20 mg HS PO 01/01/25 22:00 Examination General Appearance: Alert, Oriented X3, Cooperative, Mild distress HEENT: Atraumatic, Mucous membranes moist/pink Respiratory: Clear to auscultation, Normal air movement, No added sounds Cardiovascular: Regular rate, Normal S1, Normal S2, No murmurs Abdominal/ : Active bowel sounds, Soft, no distention, right upper abdomen tenderness, tenderness present over right lower ribs Extremities:bilateral lower extremity skin erythematous with Multiple small ulcers noted at the anterior surfaces of both legs, left 2nd toe amputated. Skin: No Significant rash, except past surgical scars Neuro: Normal speech, mild right-sided weakness, peripheral vision loss in both eyes, right lateral rectus muscle weak, Ataxic gait. Psych/Mental Status: Mental status NL, Mood NL Nurse was there as clinical lab clerk during examination laboratory and microbiology Laboratory Tests 01/01/25 06:07 Test 01/01/25 06:07 Range/Units Serum Glucose 122 H 74-106 mg/dL Labs and/or images reviewed: Labs reviewed by me, Image(s) reviewed by me Problem List/Assessment/Plan Problem List/Assessment/Plan Chest pain,possibly muscular, ruled out ACS Atrial fibrillation -EKG: AFib -troponin 13 -nitroglycerin, morphine, oxygen given -Eliquis 5 mg p.o. b.i.d. for AFib CHF with minimally reduced EF echo-LVEF borderline 45-50%, mild global hypokinesis. Mild LVH Right ventricle mildly hypokinetic. Device lead present Moderate right and left atria dilation ruled out PE Ddimer-8.53 CTA-No evidence for large pulmonary embolism. 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 Endograft extends into the proximal abdominal aorta. Aneurysm sac measures 5.2 cm in the thoracic aorta and 4.9 cm in the proximal abdominal aorta. This is inadequately characterized due to the majority of contrast being within the pulmonary artery circulation. Acute left KNIFE CUTTER stroke Carotid Doppler showed decreased velocity within left vertebral artery which may indicate stenosis CT angiography of head and neck to rule out vertebral artery stenosis Head CT: STABLE EXAM. NO ACUTE INTRACRANIAL ABNORMALITY SEEN. 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 Overall small caliber of the V 2, V3, V4 segments which demonstrates minimal filling. Dominant right vertebral artery. Aneurysmal dilatation of the aortic arch proximal descending thoracic aorta up to 5.6 cm. Aortic endograft. No flow seen external to the endograft along the proximal thoracic aorta visualized component. 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 Brain aneurysm status post coiling Uncontrolled diabetes mellitus Lantus 20 units Insulin sliding scale Uncontrolled hypertension Aortic dissection status post stent placement Amlodipine 10 mg p.o. daily Carvedilol 3.25 daily Peripheral arterial disease/hyperlipidemia Lipitor 40 mg Presyncope Social Unstable housing and assistance for mobility (Wheelchair, Walker? ) due to fall risk GI prophylaxis: Pantoprazole DVT prophylaxis: Eliquis Diet: Cardiac Goals of care discussed with the patient for more than 27 minutes: Full code status Case discussed with Dr Skinner, patient and RN Plan discussed with: Patient My Orders My Orders Orders - HARJEET BARKER RESIDENT Procedure Category Date Status Time * Wagon Driver CONS 01/01/25 Transmitted Consult Dietary Evaluation Review Comments: 1) Add 60g CCHO restriction to cardiac diet 2) Encourage optimal PO intake 3) Initiate MVI @ 1 tb qd 4) Follow-up with cardiology and podiatry 5) Continue to monitor I&O, labs, and skin integrity Expected Outcomes/Goals: 1) appetite and labs to improve 2) wound to improve 3) gradual wt loss 4) f/u in 3-5 days Date of Service: Jan 01, 2025 Billing Provider: DEEPTI SKINNER MD Common Visit Codes: [id number] INP/OBS CARE(MOD) HARJEET BARKER RESIDENT Jan 01, 2025 14:24 DEEPTI SKINNER MD Jan 01, 2025 19:25
[2025-01-01 17:00] VITALS: BP 134/83; PULSE 69; RESP 17; TEMP 97.9; O2SAT 97
[2025-01-01 21:00] VITALS: BP 133/100; PULSE 70; RESP 18; TEMP 98.4; O2SAT 97
[2025-01-01] MEDS: ATORVASTATIN 20 MG TAB PO SCH (21:40)
[2025-01-02 01:00] VITALS: BP 119/70; PULSE 61; RESP 17; TEMP 97.9; O2SAT 99
[2025-01-02 05:00] VITALS: BP 168/97; PULSE 75; RESP 18; TEMP 97.7; O2SAT 98
[2025-01-02 07:19] LABS: Hematocrit 41.5 % (41.0-53.0); Hemoglobin 14.3 g/dL (13.5-17.5); Mean Corpuscular Hemoglobin 28.4 pg (28.0-32.0); Mean Corpuscular Volume 82.7 fL (80.0-100.0); Nucleated Red Blood Cells % 0.0 %
[2025-01-02 07:37] LABS: Anion Gap 10 (5-15); Carbon Dioxide 23 mmol/L (20-31); Chloride 106 mmol/L (98-107); Potassium 3.7 mmol/L (3.5-5.1); Sodium 139 mmol/L (136-145)
[2025-01-02 07:38] LABS: Calcium 9.8 mg/dL (8.7-10.4)
[2025-01-02 07:43] LABS: BUN/Creatinine Ratio 17.9 (10.0-20.0); Blood Urea Nitrogen 17 mg/dL (9-23)
[2025-01-02 07:44] LABS: Glucose 131 mg/dL (74-106)
[2025-01-02 09:06] VITALS: BP 115/60; PULSE 74; RESP 18; TEMP 98.2; O2SAT 96
[2025-01-02 13:16] VITALS: BP 119/82; PULSE 67; RESP 18; TEMP 98.4; O2SAT 97
--- NOTE | 2025-01-02 15:05 | DVHPNRES ---
Progress Note Date Seen: Jan 02, 2025 Resident Creating Document: HARJEET BARKER RESIDENT Medical Necessity Reason Pt with a Central, PICC or Fol: No Subjective Review of Systems This is a 69-year-old male with history of repair of aortic dissection with stent placed, atrial fibrillation with dual-chamber left-sided pacemaker in place on Eliquis, cerebrovascular accident with some neurologic deficits, peripheral arterial disease status post left 2nd toe amputation, uncontrolled diabetes mellitus because of nonadherence to medication and hypertension who presented to the ER with the complaints of dizziness followed by fall twice.He said he got dizzy while walking and had to sit to regain balance. He also had right-sided lower chest pain for the same duration. He also reports having increasing weakness in the legs. The pain is sharp and aching in nature, worse with movement, deep breathing or coughing. He denies any associated shortness of breath, abdominal pain, nausea, vomiting or any other complaints. He endorsed ataxic gait during history taking and examination. For about two years, he has tingling, numbness, shooting/burning pain in the feet, he was said to have polyneuropathy. 12/29-He still complains of dizziness and has an unsteady gait on trying to walk. Vitals have been unstable. He has pain below the rib cage on both sides. His carotid Doppler revealed decreased velocity within left vertebral artery. His echo revealed EF of 45-50%. He is pending CT angiography of the head and neck tomorrow to rule out stenosis. 12/30-The patient mentioned that he had a fall in the bathroom this morning while trying to wash his hands and he hit the back of his head on the wall. He mentions he did not lose consciousness. 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 Head CT was done which was unremarkable. Patient is stable. Vascular surgery will be consulted for the same. 12/31- Patient reports same symptoms such as dizziness and headache. Neurology consultation has been requested but is pending at this time. 01/01-The vitals have been stable. The patient still complains of dizziness and weakness. Dr Krisnhamurthy saw the patient and recommended MRI brain for the patient and added lipitor 20 mg HS to the medication regime. director of employer services spoke with the patient and he agreed to go to SNF for physical therapy and rehab. 01/02- The patient was seen at bedside. His vitals have been stable [place] [address]. Patient also complained of cough but no fever. COVID and influenza tests were ordered for the same. Patient could not undergo MRI brain because of the presence of an unknown metallic object in his brain and Dr. Krishnamurthy was informed of the same. PT evaluation was done and he was recommended SNF for rehab. director of employer services talked to the patient about the possibility of being discharged to a boarding home, as the patient has exhausted his SNF days but the patient did not seem to agree with that arrangement. Patient mentioned he wants had to be transported back to his home [place] to [place]. Stock Preparation Operator was contacted again talked to the patient about th possibilities once he is discharged. Past medical history: Hypertension, diabetes mellitus,cerebrovascular accident with remaining neurologic deficits, peripheral neuropathy Past surgical history: Aortic dissection with stent placed (12 years ago) , atrial fibrillation with dual-chamber left-sided pacemaker in place (10 years ago),peripheral arterial disease status post left 2nd toe amputation Home medications: Eliquis, Lipitor Allergies: None Family history: Multiple siblings of coronary artery disease Social history: Lives in a travel trailer, does not have a wheelchair or walker Smoking history: 50 pack year smoking history, smoking 3-4 packs of cigarettes since 17 years of age Alcohol history: heavy drinking for 25 years Drugs history: None PCP: Dr. Erickson Dillard Code status: Full code Allergies: no known allergies Patient seen and examined at bedside. Patient is alert and oriented to time, place person and responding to all questions. He complains of dizziness. Eyes: right lateral rectus deviated to the right ,No Pain, No Vision change, No Conjunctivae inflammation, No Eyelid inflammation, No Redness ENT: No Ear pain, No Ear discharge, No Nose pain, No Nose discharge, No Nose congestion, No Mouth pain, No Mouth swelling, No Throat pain, No Throat swelling Cardiovascular: Chest Pain, No Palpitations, No Orthopnea, No Paroxysmal No Dyspnea, No Edema, No Lt Headedness Respiratory: No Cough, No Dry,no Shortness of breath, No SOB with exertion, No Wheezing, No Hemoptysis, No Pleuritic Pain, No Sputum Gastrointestinal: No Nausea, No Vomiting, No Abdominal Pain, No Diarrhea, No Constipation, No Melena, No Hematochezia Genitourinary: No Dysuria, No Frequency, No Incontinence, No Hematuria, No Retention Objective vital signs Vital Sign Date Time Temp Pulse Resp B/P (MAP) Pulse Ox O2 Delivery O2 Flow Rate FiO2 01/02/25 13:16 98.4 67 18 119/82 (94) 97 98.4 01/02/25 08:00 Room Air* 0 21 Total Intake and Output 01/01/25 01/01/25 01/02/25 15:00 23:00 07:00 Intake Total 825 ml 940 ml Balance 825 ml 940 ml medications Current Medications Medications Dose Ordered Sig/Stefanie Route Start Time Stop Time Status Last Admin Dose Admin Nitroglycerin 0.4 mg Q5MINP PRN SL 12/28/24 00:30 Morphine Sulfate 2 mg Q30M PRN IV 12/28/24 00:30 Diagnostic Test (Pha) 1 strip ACHS 12/28/24 07:00 01/02/25 11:32 1 STRIP Insulin Human Regular ACHS SC 12/28/24 07:00 01/02/25 11:34 4 UNITS Dextrose 50 ml UD PRN IV 12/28/24 01:30 Carvedilol 3.125 mg DAILY PO 12/28/24 10:00 01/02/25 10:21 3.125 MG Amlodipine Besylate 10 mg DAILY PO 12/28/24 10:00 01/02/25 10:21 10 MG Apixaban 5 mg BID PO 12/28/24 10:00 01/02/25 10:21 5 MG Acetaminophen/ Hydrocodone Bitart 1 tab Q6HPRN PRN PO 12/30/24 11:15 01/02/25 06:38 1 TAB Lorazepam 1 mg ONCE PRN IV 12/31/24 19:30 Atorvastatin Calcium 20 mg HS PO 01/01/25 22:00 01/01/25 21:40 20 MG Examination General Appearance: Alert, Oriented X3, Cooperative, Mild distress HEENT: Atraumatic, Mucous membranes moist/pink Respiratory: Clear to auscultation, Normal air movement, No added sounds Cardiovascular: Regular rate, Normal S1, Normal S2, No murmurs Abdominal/ : Active bowel sounds, Soft, no distention, right upper abdomen tenderness, tenderness present over right lower ribs Extremities:bilateral lower extremity skin erythematous with multiple small ulcers noted at the anterior surfaces of both legs, left 2nd toe amputated. Skin: No Significant rash, except past surgical scars Neuro: Normal speech, mild right-sided weakness, peripheral vision loss in both eyes, right lateral rectus muscle weak, Ataxic gait. Psych/Mental Status: Mental status NL, Mood NL Nurse was there as employment advisor during examination laboratory and microbiology Laboratory Tests 01/02/25 06:25 Test 01/02/25 06:25 Range/Units Serum Glucose 131 H 74-106 mg/dL Labs and/or images reviewed: Labs reviewed by me, Image(s) reviewed by me Problem List/Assessment/Plan Problem List/Assessment/Plan Chest pain rule out ACS Atrial fibrillation -EKG: AFib -troponin 13 -nitroglycerin, morphine, oxygen given -Eliquis 5 mg p.o. b.i.d. for AFib CHF with minimally reduced EF echo-LVEF borderline 45-50%, mild global hypokinesis. Mild LVH Right ventricle mildly hypokinetic. Device lead present Moderate right and left atria dilation ruled out PE Ddimer-8.53 CTA-No evidence for large pulmonary embolism. 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 Endograft extends into the proximal abdominal aorta. Aneurysm sac measures 5.2 cm in the thoracic aorta and 4.9 cm in the proximal abdominal aorta. This is inadequately characterized due to the majority of contrast being within the pulmonary artery circulation. 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 Brain aneurysm status post coiling Uncontrolled diabetes mellitus Lantus 20 units Insulin sliding scale Uncontrolled hypertension Aortic dissection status post stent placement Amlodipine 10 mg p.o. daily Carvedilol 3.25 daily Peripheral arterial disease/hyperlipidemia Lipitor 40 mg Diabetic polyneuropathy Social Unstable housing and assistance for mobility (Wheelchair, Walker? ) due to fall risk GI prophylaxis: Pantoprazole DVT prophylaxis: Eliquis Diet: Cardiac Goals of care discussed with the patient for more than 27 minutes: Full code status Case discussed with Dr Skinner, patient and RN Plan discussed with: Patient, Other (RN) Plan discussed with: Patient My Orders My Orders Orders - HARJEET BARKER RESIDENT Procedure Category Date Status Time * Stock Preparation Operator CONS 01/02/25 Transmitted Consult Covid19 Antigen [facility] LAB 01/02/25 Logged Rapid Influenza A&B LAB 01/02/25 Logged 13:59 Dietary Evaluation Review Comments: 1) Add 60g CCHO restriction to cardiac diet 2) Encourage optimal PO intake 3) Initiate MVI @ 1 tb qd 4) Follow-up with cardiology and podiatry 5) Continue to monitor I&O, labs, and skin integrity Expected Outcomes/Goals: 1) appetite and labs to improve 2) wound to improve 3) gradual wt loss 4) f/u in 3-5 days Date of Service: Jan 02, 2025 Billing Provider: DEEPTI SKINNER MD Common Visit Codes: [id number] INP/OBS CARE(HIGH) HARJEET BARKER RESIDENT Jan 02, 2025 15:05 DEEPTI SKINNER MD Jan 05, 2025 10:05
[2025-01-02 17:24] VITALS: BP 147/78; PULSE 70; RESP 17; TEMP 98.5; O2SAT 98
[2025-01-02 19:17] LABS: COVID19 ANTIGEN SOFIA FIA NEGATIVE (NEGATIVE)
[2025-01-02 20:31] VITALS: BP 135/66; PULSE 71; RESP 18; TEMP 96.5; O2SAT 96
--- NOTE | 2025-01-02 21:21 | DVHPN2 ---
Progress Note - Dictate Date Seen: Jan 02, 2025 Medical Necessity Reason Pt with a Central, PICC or Fol: No Subjective Mr. Loredo with a 70 years old right-handed gentleman with a history of hypertension, diabetes, coronary artery disease, atrial fibrillation, deg dissection, he came to the [facility] on 12/27/2024 weakness, frequent fall. I have seen and examined the patient, I have talked to his nurse and sitter, he is alert and oriented x3, good social skills I have talked to MRI, because of the metal piece inside the the head, MRI was not obtained Social service input appreciated UDS, 12/28/2024: Cannabinoids CBC, 12/31/2024: Unremarkable CMP, 12/29/2024: Unremarkable TG/HDL/LDL/HDL, 12/31/2024: 150/113/59/28 Vitamin B12, 12/28/2024: 374 Folic acid, 12/2324: 11.94 TSH, 12/28/2024: 1.01 TTE, 12/28/2024: LVEF borderline 45-50%, mild global hypokinesis. Mild LVH Right ventricle mildly hypokinetic. Device lead present Moderat right and left atrila dilation Mild aortic root dilation, 4.2cm Carotid Doppler, 12/28/2024: No hemodynamically significant stenosis by velocity criteria of the internal carotid arteries. Decreased velocity within the left vertebral artery may indicate hemodynamically significant stenosis CT head, 12/27/2024: 1. No CT evidence of acute intracranial abnormality. 2. Foreign body in the anterior aspect of the left anterior cranial fossa with associated beam hardening artifact as described above, of uncertain etiology. Correlate with clinical findings. CT head, 12/30/2024: STABLE EXAM. NO ACUTE INTRACRANIAL ABNORMALITY SEEN vital signs Vital Sign Date Time Temp Pulse Resp B/P (MAP) Pulse Ox O2 Delivery O2 Flow Rate FiO2 01/02/25 20:31 96.5 71 18 135/66 (89) 96 96.5 01/02/25 20:00 Room Air* 0 21 Total Intake and Output 01/01/25 01/01/25 01/02/25 14:59 22:59 06:59 Intake Total 825 ml 940 ml Balance 825 ml 940 ml medications Current Medications Medications Dose Ordered Sig/Stefanie Route Start Time Stop Time Status Last Admin Dose Admin Nitroglycerin 0.4 mg Q5MINP PRN SL 12/28/24 00:30 Morphine Sulfate 2 mg Q30M PRN IV 12/28/24 00:30 Diagnostic Test (Pha) 1 strip ACHS 12/28/24 07:00 01/02/25 16:26 1 STRIP Insulin Human Regular ACHS SC 12/28/24 07:00 01/02/25 11:34 4 UNITS Dextrose 50 ml UD PRN IV 12/28/24 01:30 Carvedilol 3.125 mg DAILY PO 12/28/24 10:00 01/02/25 10:21 3.125 MG Amlodipine Besylate 10 mg DAILY PO 12/28/24 10:00 01/02/25 10:21 10 MG Apixaban 5 mg BID PO 12/28/24 10:00 01/02/25 10:21 5 MG Acetaminophen/ Hydrocodone Bitart 1 tab Q6HPRN PRN PO 12/30/24 11:15 01/02/25 19:33 1 TAB Lorazepam 1 mg ONCE PRN IV 12/31/24 19:30 Atorvastatin Calcium 20 mg HS PO 01/01/25 22:00 01/01/25 21:40 20 MG objective General: the patient is well developed and nourished. No acute distress. MUSCULOSKELETAL EXAM: Status post left toe amputation, bilateral hammertoes, multiple superficial skin lesions of different age in the feet MENTAL STATUS: Awake and alert. Oriented to person, place, time and general circumstances. Poor historian SPEECH, LANGUAGE, HIGHER CORTICAL FUNCTION: no aphasia or dysathria. CRANIAL NERVES: Pupils are equal, round, Rt: 6mm, nonreactive. Lt: 4mm, reactive. No abduction, weakness in up and the low gazing in the right eye. Double vision with both eyes open, but without gaze evoked nystagmus. Facial sensation intact in all three divisions bilaterally. Mandibular strength intact. Facial muscles symmetrical and strength intact. Tongue midline. No fasciculations or atrophy. SENSATION: Sensation to touch and pinprick is diminished in the right arm than leg Pinprick diminished distally in the lower extremities MOTOR: Normal tone in the upper and lower extremity. Normal muscle bulk. No fasciculations. No abnormal movements or posturing. Muscle strength feels mildly weak in the right arm than leg, REFLEXES: Deep tendon reflexes are symmetrically diminished. No pathological reflexes. CEREBELLAR/COORDINATION: Finger to nose is normal bilaterally. 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 Brain aneurysm status post coiling ? Cognitive dysfunction/vascular dementia Vertebral artery occlusion Diabetic polyneuropathy Assessment/Plan Monitoring Supportive treatment Telemetry MRI brain scan, not a good candidate because of unknown metallic object in brain [facility] information release Eliquis 5 mg b.i.d. Lipitor 10 mg q.d. Foot care Daily foot inspection Wide, soft and protect she was only More recommendation per clinical course This medical document was created using an electronic medical record system with [employer] dictation system. Although this document has been carefully reviewed, there may still be some phonetic and typographical errors. These Prognosis poor Dietary Evaluation Review Comments: 1) Add 60g CCHO restriction to cardiac diet 2) Encourage optimal PO intake 3) Initiate MVI @ 1 tb qd 4) Follow-up with cardiology and podiatry 5) Continue to monitor I&O, labs, and skin integrity Expected Outcomes/Goals: 1) appetite and labs to improve 2) wound to improve 3) gradual wt loss 4) f/u in 3-5 days Plan discussed with: Patient, Other TRAVIS TREVIÑO MD Jan 02, 2025 21:21
[2025-01-02] MEDS: ATORVASTATIN 20 MG TAB PO SCH (22:00)
[2025-01-03] VITALS (7 sets, daily range): BP systolic 102–146; BP diastolic 43–85; PULSE 72–86; RESP 16–18; TEMP 96.4–98.6; O2SAT 96–98
[2025-01-03 06:49] LABS: Hematocrit 40.2 % (41.0-53.0); Hemoglobin 13.9 g/dL (13.5-17.5); Mean Corpuscular Hemoglobin 28.5 pg (28.0-32.0); Mean Corpuscular Volume 82.8 fL (80.0-100.0); Nucleated Red Blood Cells % 0.0 %
[2025-01-03 06:53] LABS: Chloride 103 mmol/L (98-107); Potassium 3.7 mmol/L (3.5-5.1); Sodium 137 mmol/L (136-145)
[2025-01-03 06:54] LABS: Anion Gap 8 (5-15); Calcium 9.5 mg/dL (8.7-10.4); Carbon Dioxide 26 mmol/L (20-31)
[2025-01-03 06:59] LABS: BUN/Creatinine Ratio 16.7 (10.0-20.0); Blood Urea Nitrogen 16 mg/dL (9-23)
[2025-01-03 07:20] LABS: Glucose 163 mg/dL (74-106)
--- NOTE | 2025-01-03 11:59 | DVH ---
CHEST RADIOGRAPH Indication: PNA Technique: Single frontal view of the chest was obtained COMPARISON: CT CT ANGIO CHEST CONTRAST on DOS: 12/28/24, XY CHEST PORTABLE on DOS: 12/27/24, XY CHEST P ORTABLE on DOS: 12/27/24 FINDINGS: Lines and Tubes: Left chest pacemaker Lungs: Congestion Pleura: No effusion. No pneumothorax. Cardiomediastinal contours: Descending thoracic aorta stent. Bones: Unremarkable IMPRESSION: Congestion
[2025-01-03 12:05] LABS: Urine Protein, UAD TRACE (Negative)
[2025-01-03] MEDS: cefTRIAXone 1GM/50ML D5W 50 ML IV ONE (14:40)
--- NOTE | 2025-01-03 15:40 | DVHPNRES ---
Progress Note Date Seen: Jan 03, 2025 Resident Creating Document: JUSTINO ESTEBAN RESIDENT Medical Necessity Reason Pt with a Central, PICC or Fol: No Subjective Review of Systems This is a 69-year-old male with history of repair of aortic dissection with stent placed, atrial fibrillation with dual-chamber left-sided pacemaker in place on Eliquis, cerebrovascular accident with some neurologic deficits, peripheral arterial disease status post left 2nd toe amputation, uncontrolled diabetes mellitus because of nonadherence to medication and hypertension who presented to the ER with the complaints of dizziness followed by fall twice.He said he got dizzy while walking and had to sit to regain balance. He also had right-sided lower chest pain for the same duration. He also reports having increasing weakness in the legs. The pain is sharp and aching in nature, worse with movement, deep breathing or coughing. He denies any associated shortness of breath, abdominal pain, nausea, vomiting or any other complaints. He endorsed ataxic gait during history taking and examination. For about two years, he has tingling, numbness, shooting/burning pain in the feet, he was said to have polyneuropathy. Past medical history: Hypertension, diabetes mellitus,cerebrovascular accident with remaining neurologic deficits, peripheral neuropathy Past surgical history: Aortic dissection with stent placed (12 years ago) , atrial fibrillation with dual-chamber left-sided pacemaker in place (10 years ago),peripheral arterial disease status post left 2nd toe amputation Home medications: Eliquis, Lipitor Allergies: None Family history: Multiple siblings of coronary artery disease Social history: Lives in a travel trailer, does not have a wheelchair or walker Smoking history: 50 pack year smoking history, smoking 3-4 packs of cigarettes since 17 years of age Alcohol history: heavy drinking for 25 years Drugs history: None PCP: Dr. Erickson Dillard Code status: Full code 12/29-He still complains of dizziness and has an unsteady gait on trying to walk. Vitals have been unstable. He has pain below the rib cage on both sides. His carotid Doppler revealed decreased velocity within left vertebral artery. His echo revealed EF of 45-50%. He is pending CT angiography of the head and neck tomorrow to rule out stenosis. 12/30-The patient mentioned that he had a fall in the bathroom this morning while trying to wash his hands and he hit the back of his head on the wall. He mentions he did not lose consciousness. 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 Head CT was done which was unremarkable. Patient is stable. Vascular surgery will be consulted for the same. 12/31- Patient reports same symptoms such as dizziness and headache. Neurology consultation has been requested but is pending at this time. 01/01-The vitals have been stable. The patient still complains of dizziness and weakness. Dr Krishnamurthy saw the patient and recommended MRI brain for the patient and added lipitor 20 mg HS to the medication regime. human services care specialist spoke with the patient and he agreed to go to SNF for physical therapy and rehab. 01/02- The patient was seen at bedside. His vitals have been stable [place] [address]. Patient also complained of cough but no fever. COVID and influenza tests were ordered for the same. Patient could not undergo MRI brain because of the presence of an unknown metallic object in his brain and Dr. Krishnamurthy was informed of the same. PT evaluation was done and he was recommended SNF for rehab. human services care specialist talked to the patient about the possibility of being discharged to a boarding home, as the patient has exhausted his SNF days but the patient did not seem to agree with that arrangement. Patient mentioned he wants had to be transported back to his home [place] to [place]. Winding Inspector was contacted again talked to the patient about th possibilities once he is discharged. 01/02-patient was seen today at bedside, patient with a leukocytosis, WBC today 16.2, patient reported urinary incontinence for last couple of months. Today Urinalysis revealed urine, nitrite 1+ leukocyte esterase 3+, WBC 132, bacteria moderate. Ordered ceftriaxone 1 g IV daily, pending urine culture. As per social service on 01/03/2026-[facility] will contact patient for placement today, patient needs to decide whether to agree to placement or discharge to previous. If patient agrees to placement, services can be obtained, [facility] has already accepted. Patient can receive [employer] for transport. Objective vital signs Vital Sign Date Time Temp Pulse Resp B/P (MAP) Pulse Ox O2 Delivery O2 Flow Rate FiO2 01/03/25 12:34 98.2 82 16 146/83 (104) 97 98.2 01/03/25 08:00 Room Air* 0 21 Total Intake and Output 8/25/25 8/25/25 8/26/25 15:00 23:00 07:00 Intake Total 1440 ml 800 ml Balance 1440 ml 800 ml medications Current Medications Medications Dose Ordered Sig/Stefanie Route Start Time Stop Time Status Last Admin Dose Admin Nitroglycerin 0.4 mg Q5MINP PRN SL 12/28/24 00:30 Morphine Sulfate 2 mg Q30M PRN IV 12/28/24 00:30 Diagnostic Test (Pha) 1 strip ACHS 12/28/24 07:00 01/03/25 10:39 1 STRIP Insulin Human Regular ACHS SC 12/28/24 07:00 01/03/25 10:39 6 UNITS Dextrose 50 ml UD PRN IV 12/28/24 01:30 Carvedilol 3.125 mg DAILY PO 12/28/24 10:00 01/03/25 09:49 3.125 MG Amlodipine Besylate 10 mg DAILY PO 12/28/24 10:00 01/03/25 09:50 10 MG Apixaban 5 mg BID PO 12/28/24 10:00 01/03/25 09:49 5 MG Acetaminophen/ Hydrocodone Bitart 1 tab Q6HPRN PRN PO 12/30/24 11:15 01/03/25 09:55 1 TAB Lorazepam 1 mg ONCE PRN IV 12/31/24 19:30 Atorvastatin Calcium 10 mg HS PO 01/02/25 22:00 Ceftriaxone Sodium 50 ml @ 100 mls/hr DAILY@09 IV 01/04/25 09:00 laboratory and microbiology Laboratory Tests 01/03/25 06:00 Test 01/03/25 06:00 Range/Units Serum Glucose 163 H 74-106 mg/dL Problem List/Assessment/Plan Problem List/Assessment/Plan Assessment and plan #Chest pain rule out ACS #Atrial fibrillation -EKG: AFib -troponin 13 -nitroglycerin, morphine, oxygen given -Eliquis 5 mg p.o. b.i.d. for AFib #CHF with minimally reduced EF echo-LVEF borderline 45-50%, mild global hypokinesis. Mild LVH Right ventricle mildly hypokinetic. Device lead present Moderate right and left atria dilation #ruled out PE Ddimer-8.53 CTA-No evidence for large pulmonary embolism. 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 Endograft extends into the proximal abdominal aorta. Aneurysm sac measures 5.2 cm in the thoracic aorta and 4.9 cm in the proximal abdominal aorta. This is inadequately characterized due to the majority of contrast being within the pulmonary artery circulation. 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 Brain aneurysm status post coiling #UTI -continue ceftriaxone 1 g IV daily -pending uterine CS #Uncontrolled diabetes mellitus Lantus 20 units Insulin sliding scale #Uncontrolled hypertension #Aortic dissection status post stent placement Amlodipine 10 mg p.o. daily Carvedilol 3.25 daily #Peripheral arterial disease/hyperlipidemia Lipitor 40 mg #Diabetic polyneuropathy Social Unstable housing and assistance for mobility (Wheelchair, Walker? ) due to fall risk GI prophylaxis: Pantoprazole DVT prophylaxis: Eliquis Diet: Cardiac Goals of care discussed with the patient for more than 27 minutes: Full code status Case discussed with Dr Skinner, patient and RN Plan discussed with: Patient, Other (RN) Plan discussed with: Patient Plan discussed with: Patient, Other (RN) My Orders My Orders Orders - JUSTINO ESTEBAN Procedure Category Date Status Time Chest Xray 1 View XY 01/03/25 Resulted 11:13 Urine Bacterial KATELYNN 01/03/25 Logged Culture 14:13 Ceftriaxone 1gm/50ml PHA 01/04/25 In Process D5w (Rocephin) 09:00 Complete Blood Count LAB 01/04/25 Verified 04:00 Basic Metabolic Panel LAB 01/04/25 Verified 04:00 Dietary Evaluation Review Comments: 1) Add 60g CCHO restriction to cardiac diet 2) Encourage optimal PO intake 3) Initiate MVI @ 1 tb qd 4) Follow-up with cardiology and podiatry 5) Continue to monitor I&O, labs, and skin integrity Expected Outcomes/Goals: 1) appetite and labs to improve 2) wound to improve 3) gradual wt loss 4) f/u in 3-5 days Date of Service: Jan 03, 2025 Billing Provider: DEEPTI SKINNER MD Common Visit Codes: 30350-[id number] INP/OBS CARE(MOD) JUSTINO ESTEBAN Jan 03, 2025 15:39 DEEPTI SKINNER MD Jan 05, 2025 10:05
[2025-01-04 01:00] VITALS: BP 131/86; PULSE 78; RESP 17; TEMP 97.8; O2SAT 99
[2025-01-04 05:00] VITALS: BP 120/76; PULSE 65; RESP 17; TEMP 98.4; O2SAT 99
[2025-01-04 07:00] LABS: Anion Gap 7 (5-15); Carbon Dioxide 24 mmol/L (20-31); Chloride 106 mmol/L (98-107); Potassium 4.4 mmol/L (3.5-5.1); Sodium 137 mmol/L (136-145)
[2025-01-04 07:01] LABS: Calcium 9.5 mg/dL (8.7-10.4)
[2025-01-04 07:06] LABS: BUN/Creatinine Ratio 11.6 (10.0-20.0); Blood Urea Nitrogen 11 mg/dL (9-23)
[2025-01-04 07:09] LABS: Glucose 135 mg/dL (74-106)
[2025-01-04 07:18] LABS: Hematocrit 40.0 % (41.0-53.0); Hemoglobin 13.6 g/dL (13.5-17.5); Mean Corpuscular Hemoglobin 29.1 pg (28.0-32.0); Mean Corpuscular Volume 85.8 fL (80.0-100.0); Nucleated Red Blood Cells % 0.1 %
[2025-01-04 08:30] VITALS: BP 144/87; PULSE 78; RESP 19; TEMP 98.3; O2SAT 97
[2025-01-04] MEDS: cefTRIAXone 1GM/50ML D5W 50 ML IV SCH (10:12)
[2025-01-04] MEDS ORDERED: ATOR10TA PO (10:39)
[2025-01-04] MEDS ORDERED: APIX5TAB PO (10:39)
[2025-01-04] MEDS ORDERED: CEPH500C PO (10:39)
[2025-01-04] MEDS ORDERED: AMLO1TAB23 PO (10:39)
[2025-01-04] MEDS ORDERED: CARV-214 PO (10:39)
--- NOTE | 2025-01-04 11:49 | DVHDSRES ---
Discharge Summary Date of Admission Resident Creating Document: HARJEET BARKER RESIDENT Dec 28, 2024 at 00:26 Date of Discharge: Jan 04, 2025 Admitting Diagnosis dizziness,chest pain,falls Labs/Diagnostic Data: Laboratory Results Test 01/04/25 06:11 01/03/25 21:14 01/03/25 11:13 01/02/25 14:46 White Blood Count 10.8 10^3/uL (4.4-10.8) Red Blood Count 4.66 10^6/uL (4.5-5.90) Hemoglobin 13.6 g/dL (13.5-17.5) Hematocrit 40.0 % (41.0-53.0) Mean Corpuscular Volume 85.8 fL (80.0-100.0) Mean Corpuscular Hemoglobin 29.1 pg (28.0-32.0) Mean Corpuscular Hemoglobin Concent 33.9 g/dL (32.0-36.0) Red Cell Distribution Width 16.2 % (11.8-14.3) Platelet Count 151 10^3/uL (140-450) Mean Platelet Volume 8.3 fL (6.9-10.8) Neutrophils (%) (Auto) 77.7 % (37.0-80.0) Lymphocytes (%) (Auto) 10.0 % (10.0-50.0) Monocytes (%) (Auto) 9.6 % (0.0-12.0) Eosinophils (%) (Auto) 2.2 % (0.0-7.0) Basophils (%) (Auto) 0.5 % (0.0-2.0) Neutrophils # (Auto) 8.4 10 ^3/uL (1.6-8.6) Lymphocytes # (Auto) 1.1 10 ^3/uL (0.4-5.4) Monocytes # (Auto) 1.0 10 ^3/uL (0-1.3) Eosinophils # (Auto) 0.2 10 ^3/uL (0-0.8) Basophils # (Auto) 0.1 10 ^3/uL (0-0.2) Nucleated Red Blood Cells 0.1 % Sodium Level 137 mmol/L (136-145) Potassium Level 4.4 mmol/L (3.5-5.1) Chloride Level 106 mmol/L (98-107) Carbon Dioxide Level 24 mmol/L (20-31) Anion Gap 7 (5-15) Blood Urea Nitrogen 11 mg/dL (9-23) Creatinine 0.95 mg/dL (0.700-1.30) Glomerular Filtration Rate Calc 87 mL/min (>90) BUN/Creatinine Ratio 11.6 (10.0-20.0) Serum Glucose 135 mg/dL (74-106) Calcium Level 9.5 mg/dL (8.7-10.4) POC Glucose 191 mg/dl (70-106) Urine Color Colorless (Yellow) Urine Clarity Turbid (Clear) Urine pH 6.0 (5.0-9.0) Urine Specific [place] 1.010 (1.001-1.035) Urine Protein Trace (Negative) Urine Ketones Negative (Negative) Urine Blood 1+ /uL (Negative) Urine Nitrite 1+ (Negative) Urine Bilirubin Negative (Negative) Urine Urobilinogen Normal mg/dL (Negative) Urine Leukocyte Esterase 3+ /uL (Negative) Urine RBC 5 /hpf (0 - 3) Urine Microscopic WBC 132 /HPF (0-3) Urine Squamous Epithelial Cells Few /hpf (<5) Urine Bacteria Mod /hpf (None Seen) Urine Sperm Present /hpf (None Seen) Urine Glucose Normal mg/dL (Normal) Influenza Type A Antigen Negative (Negative) Influenza Type B Antigen Negative (Negative) SARS-CoV-2 Antigen (Rapid) Negative (NEGATIVE) Test 12/31/24 06:26 12/29/24 06:05 12/28/24 15:30 12/28/24 09:25 Triglycerides Level 150 mg/dL (< 150) Cholesterol Level 113 mg/dL (< 200) LDL Cholesterol 59 mg/dL (< 100) HDL Cholesterol 28 mg/dL (40-59) Folic Acid 11.94 ng/mL (>5.38) Total Bilirubin 0.5 mg/dL (0.2-1.0) Aspartate Amino Transferase (AST) 24 U/L (13-40) Alanine Aminotransferase (ALT) 49 U/L (7-40) Alkaline Phosphatase 81 U/L (46-116) Total Protein 6.7 g/dL (5.7-8.2) Albumin 3.8 g/dL (3.2-4.8) Urine Opiates Screen Neg (NEGATIVE) Urine Fentanyl Screen Neg (NEGATIVE) Urine Barbiturates Screen Neg (NEGATIVE) Urine Phencyclidine Screen Neg (NEGATIVE) Urine Amphetamines Screen Neg (NEGATIVE) Urine Benzodiazepines Screen Neg (NEGATIVE) Urine Cocaine Screen Neg (NEGATIVE) Urine Cannabinoids Screen Pos (NEGATIVE) D-Dimer, Quantitative 8.53 mg/L FEU (0.0-0.49) Vitamin B12 Level 374 pg/mL (211-911) Thyroid Stimulating Hormone (TSH) 1.01 uIU/mL (0.55-4.78) Test 12/28/24 00:19 12/27/24 21:01 Troponin I High Sensitivity 14 ng/L (</=54) Hemoglobin A1c 6.5 % A1C (<5.7) Magnesium Level 2.1 mg/dL (1.6-2.6) B-Type Natriuretic Peptide 193.67 pg/mL (0-100) Other Laboratory Tests 01/04/25 06:11 Brief Hx & Hospital Course: This is a 69-year-old male with history of repair of aortic dissection with stent placed, atrial fibrillation with dual-chamber left-sided pacemaker in place on Eliquis, cerebrovascular accident with some neurologic deficits, peripheral arterial disease status post left 2nd toe amputation, uncontrolled diabetes mellitus because of nonadherence to medication and hypertension who presented to the ER with the complaints of dizziness followed by fall twice.He said he got dizzy while walking and had to sit on the sidewalk to regain balance. He also had right-sided lower chest pain for the same duration.The pain was sharp and aching in nature, worse with movement, deep breathing or coughing. He also reported having increasing weakness in the legs. He denied any associated shortness of breath, abdominal pain, nausea, vomiting or any other complaints. He endorsed ataxic gait during history taking and examination. For about two years, he has tingling, numbness, shooting/burning pain in the feet, and was said to have polyneuropathy. He continued to have dizziness unsteady gait during his hospital stay but it gradually improved. Carotid Doppler was done which revealed decreased velocity within the left vertebral artery. His echo revealed EF of 45-50%. CT angiography of the head and neck revealed occlusion of the left vertebral artery V1 and proximal to mid to V2 segments. MRI was recommended for the patient but it could not be done because of the presence of an unknown metallic object in his brain. He was recommended SNF for rehab according to the PT evaluation but he had exhausted his SNF days. Patient had leukocytosis with a WBC of 16.2 and was found to have a UTI which was treated with ceftriaxone. Evaluation today, patient's vitals were stable and his labs for within range and he was discharged after complete and thorough explanation of his medications. Past medical history: Hypertension, diabetes mellitus,cerebrovascular accident with remaining neurologic deficits, peripheral neuropathy Past surgical history: Aortic dissection with stent placed (12 years ago) , atrial fibrillation with dual-chamber left-sided pacemaker in place (10 years ago),peripheral arterial disease status post left 2nd toe amputation Home medications: Eliquis, Lipitor Allergies: None Family history: Multiple siblings of coronary artery disease Social history: Lives in a travel trailer, does not have a wheelchair or walker Smoking history: 50 pack year smoking history, smoking 3-4 packs of cigarettes since 17 years of age Alcohol history: heavy drinking for 25 years Drugs history: None PCP: Dr. Erickson Dillard Code status: Full code General Appearance: Alert, Oriented X3, Cooperative, Mild distress HEENT: Atraumatic, Mucous membranes moist/pink Respiratory: Clear to auscultation, Normal air movement, No added sounds Cardiovascular: Regular rate, Normal S1, Normal S2, No murmurs Abdominal/ : Active bowel sounds, Soft, no distention, right upper abdomen tenderness, tenderness present over right lower ribs Extremities:bilateral lower extremity skin erythematous with multiple small ulcers noted at the anterior surfaces of both legs, left 2nd toe amputated. Skin: No Significant rash, except past surgical scars Neuro: Normal speech, mild right-sided weakness, peripheral vision loss in both eyes, right lateral rectus muscle weak, Ataxic gait. Psych/Mental Status: Mental status NL, Mood NL Nurse was there as registration coordinator during examination Operations or Procedures 1.PROCEDURE(s): CXRP - CHEST PORTABLE REASON: SOB ORDER NUMBER(s): [id number], ACCESSION NUMBER(s): [id number] INDICATION: SOB TECHNIQUE: Frontal view of the chest. COMPARISON: XY CHEST PORTABLE on DOS: 12/27/24 FINDINGS/IMPRESSION: Left-sided dual-chamber pacemaker. Aortic stent is noted. Unchanged cardiomediastinal silhouette. The lungs are clear. No pleural effusion or pneumothorax. Unchanged osseous structures. 2.PROCEDURE(s): CARCL - CAROTID DUPLX W COLOR DOP REASON: presyncope ORDER NUMBER(s): [id number], ACCESSION NUMBER(s): [id number] Indication: presyncope Technique: Real-time ultrasound images of the neck vessels with dickson-scale, color and wave Doppler were obtained. Comparison: None Findings: [id number] atherosclerotic plaque bilaterally. The following peak systolic velocities were recorded in cm/sec: Right internal carotid: 86 Right common carotid: 49 Right external carotid: 71 Right internal/common carotid ratio: 1.7 Left internal carotid: 91 Left common carotid: 54 Left external carotid: 92 Left internal/common carotid ratio: 1.7 Right vertebral artery: Patent with normal antegrade direction of flow. Left vertebral artery: Patent with normal antegrade direction of flow. Lower velocity compared to the right Impression: No hemodynamically significant stenosis by velocity criteria of the internal carotid arteries. Decreased velocity within the left vertebral artery may indicate hemodynamically significant stenosis 3.PROCEDURE(s): CTACH - CT ANGIO CHEST CONTRAST REASON: r/o PE ORDER NUMBER(s): [id number], ACCESSION NUMBER(s): [id number] Indication: r/o PE Technique: CT axial images of the abdomen and pelvis are obtained with intravenous contrast. Coronal and sagittal reformats were obtained. Radiation Dose Information: CTDI volume is 26.64 mGy. Dose-length product is 9052 mGy*cm Comparison: None FINDINGS: No large defect within the main left and right pulmonary arteries. Segmental and subsegmental branches are suboptimally opacified/ characterized, no definitive defects identified. Trachea patent. No pneumothorax. Bilateral atelectasis. Heart size at the upper limits of normal. Coronary artery calcification disease. Thoracic aortic endograft beginning in the aortic arch with fenestration into the left subclavian artery.. The thoracic aorta measures up to 5.2 cm in diameter. The proximal abdominal aorta measures approximately 4.9 cm in diameter. No aggressive osseous process. IMPRESSION: No evidence for large pulmonary embolism. 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 Endograft extends into the proximal abdominal aorta. Aneurysm sac measures 5.2 cm in the thoracic aorta and 4.9 cm in the proximal abdominal aorta. This is inadequately characterized due to the majority of contrast being within the pulmonary artery circulation. Coronary artery calcification disease. Other findings as described 4.PROCEDURE(s): [place] - ANGIO HEAD/Neck REASON: decreased velocity in left vertebral artery, dizziness ORDER NUMBER(s): [id number], ACCESSION NUMBER(s): [id number] EXAM: CT ANGIO HEAD/NECK DATE OF SERVICE: 12/30/2024 01:02 PM ORDERING PHYSICIAN: HARJEET BARKER REASON FOR EXAM: decreased velocity in left vertebral artery, dizziness TECHNIQUE: CTA of the brain and neck was performed after the administration of contrast . Axial images of the head and neck are obtained. Coronal and sagittal images were then reformatted for review. MIP reformats were obtained and reviewed. COMPARISON: Carotid ultrasound 12/28/2024 FINDINGS: FINDINGS: The right common carotid artery demonstrates no high-grade stenosis. Mild calcification of the right carotid bulb. Right internal carotid artery demonstrates no high-grade stenosis. Right middle cerebral artery demonstrates no high-grade stenosis. The right anterior cerebral artery demonstrates no high-grade stenosis. The left common carotid artery demonstrates no high-grade stenosis. Mild calcification of the left carotid bulb. Left internal carotid artery demonstrates no high-grade stenosis. The left middle cerebral artery demonstrates no high-grade stenosis. The left anterior cerebral artery demonstrates no high-grade stenosis. The right vertebral artery is dominant and demonstrates no high-grade stenosis. 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 The proximal descending thoracic aorta measures up to 5.6 cm in diameter with eccentric mural wall thrombus, incompletely characterized. There is occlusion of the proximal left vertebral artery. There is reconstitution of the mid to distal V2 segment which is overall poorly opacified and extremely small in caliber. Basilar artery demonstrates no high-grade stenosis. The bilateral posterior cerebral arteries demonstrate no high-grade stenosis. Moderate to advanced cervical degenerative disc disease. Pulmonary emphysematous changes. IMPRESSION: No large vessel high-grade stenosis of the anterior circulation. 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 Overall small caliber of the V 2, V3, V4 segments which demonstrates minimal filling. Dominant right vertebral artery. Aneurysmal dilatation of the aortic arch proximal descending thoracic aorta up to 5.6 cm. Aortic endograft. No flow seen external to the endograft along the proximal thoracic aorta visualized component. 5.PROCEDURE(s): HWOCT - HEAD WITHOUT CONTRAST REASON: s/p fall ORDER NUMBER(s): [id number], ACCESSION NUMBER(s): [id number] CLINICAL HISTORY: s/p fall TECHNIQUE: Helical scanning was performed of the head from the skull base to the vertex. Multiplanar reconstructions were performed. This exam was performed according to our departmental dose optimization program. Up-to-date CT equipment and radiation dose reduction techniques are utilized as appropriate. CTDI 59.2 DLP 165.8 COMPARISON: CT HEAD WITHOUT CONTRAST on DOS: 12/27/24 FINDINGS: There is no evidence for acute intracranial hemorrhage, acute ischemic changes, mass, mass effect, or extra-axial fluid collection. There is no hydrocephalus or midline shift. There is no effacement of the cerebral sulci and basal subarachnoid cisterns. The dickson-white matter differentiation is well maintained. There is high density material at the left anterior middle cranial fossa immediately. There is mild brain volume loss and minimal chronic small vessel schema changes. The imaged paranasal sinuses are c DEMONSTRATE MILD RIGHT AND MINIMAL LEFT MAXILLARY SINUS MUCOSAL THICKENING. IMPRESSION: STABLE EXAM. NO ACUTE INTRACRANIAL ABNORMALITY SEEN. 6.PROCEDURE(s): CXR1 - CHEST XRAY 1 VIEW REASON: ?PNA ORDER NUMBER(s): [id number], ACCESSION NUMBER(s): [id number] CHEST RADIOGRAPH Indication: PNA Technique: Single frontal view of the chest was obtained COMPARISON: CT CT ANGIO CHEST CONTRAST on DOS: 12/28/24, XY CHEST PORTABLE on DOS: 12/27/24, XY CHEST PORTABLE on DOS: 12/27/24 FINDINGS: Lines and Tubes: Left chest pacemaker Lungs: Congestion Pleura: No effusion. No pneumothorax. Cardiomediastinal contours: Descending thoracic aorta stent. Bones: Unremarkable IMPRESSION: Congestion 7.PROCEDURE(s): ECIDC - ECHO 2D MODE CARDIAC DOP REASON: Chest pain with h/o aortic dissection ORDER NUMBER(s): [id number], ACCESSION NUMBER(s): [id number] APPROVED REPORT EXAM: Two-dimensional and M-mode echocardiogram with Doppler and color Doppler. Blood Pressure: 146/91 mmHg INDICATION Chest Pain h/o aortic dissection RISK FACTORS Height: 5'10", Weight: 190 DIMENSIONS LVDd 5.3 (3.8-5.7cm) LA (2D) 5.4 (1.9-4.0cm) Aortic Root 3.9 (2.0- 3.7cm) LVDs 3.4 (2.5-4.0cm) LA (MM) (1.9-4.0cm) Aortic Cusp Exc 1.6 (1.5- 2.0cm) EF (%) 65.0 (55-70%) Rt. Atrium 5.0 (1.9-4.0cm) Asc. Aorta 4.2 cm IVSd 1.2 (0.7-1.1cm) RV (D) 3.8 (1.8-2.4cm) PWd 1.1 (0.7-1.1cm) Mitral Valve Mitral Mitral Stenosis E wave 0.74m/s MV Mean GR. mmHg E/A ratio 0.0 2D MVA cm2 Aortic Valve Aortic Valve Aortic Stenosis V1 0.84m/s AO Mean GR. 4mmHg V2 1.21m/s AO Peak GR. 6mmHg LVOT Diameter 2.4 (1.8-2.4cm) Doppler LUIS MIGUEL 3.14cm2 Pulmonic Valve V2 0.76m/s Tricuspid Valve TR Velocity 2.39m/s RVSP 26mmHg Other Information Quality : Technically Limited Rhythm : Technically limited study due to pt non-stop moving. Supratsernal views unavailable due to pt moving. Conclusion LVEF borderline 45-50%, mild global hypokinesis. Mild LVH Right ventricle mildly hypokinetic. 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 Brain aneurysm status post coiling UTI Uncontrolled diabetes mellitus Uncontrolled hypertension Aortic dissection status post stent placement Peripheral arterial disease/hyperlipidemia Diabetic polyneuropathy Discharge Disposition: Home Discharge Instruct/Medications Diet: Consistent carbohydrate, Cardiac 2g Na,low cholest Activity: No Restrictions, As Tolerated Follow Up/Referral: follow up with pcp Medications: amlodipine 10mg po daily apixaban (eliquis) 5mg bid atorvastatin (lipitor) 10mg carvedilol (coreg) 3.125 ,g keflex 500 mg po tid Scheduled Amlodipine Besylate (Amlodipine Besylate), 10 MG PO DAILY, (Reported) Amlodipine Besylate (Amlodipine Besylate), 1 TAB PO DAILY Apixaban Base (Eliquis), 5 MG PO BID, (Reported) Apixaban Base (Eliquis), 5 MG PO BID Atorvastatin Calcium (Lipitor), 1 TAB PO DAILY Carvedilol (Coreg), 3.125 MG PO DAILY Cephalexin Monohydrate (Cephalexin), 1 CAP PO TID Discharge Statement: "Patient was advised to return to the ER or call 911 if any headaches, dizziness, shortness of breath, chest pain, abdominal pain, bleeding, fevers, or worsening of medical condition. Patient was counseled about treatment plan, medications, possible side effects, patientverbalized understanding. All questions were answered to the best of my ability. This discharge took greater then 30 minutes in planning, reviewing documentation, counseling the patient, and discussing with other team members." ASSESSMENT ASSESSMENT Hospital Course This is a 69-year-old male with history of repair of aortic dissection with stent placed, atrial fibrillation with dual-chamber left-sided pacemaker in place on Eliquis, cerebrovascular accident with some neurologic deficits, peripheral arterial disease status post left 2nd toe amputation, uncontrolled diabetes mellitus because of nonadherence to medication and hypertension who presented to the ER with the complaints of dizziness followed by fall twice.He said he got dizzy while walking and had to sit on the sidewalk to regain balance. He also had right-sided lower chest pain for the same duration.The pain was sharp and aching in nature, worse with movement, deep breathing or coughing. He also reported having increasing weakness in the legs. He denied any associated shortness of breath, abdominal pain, nausea, vomiting or any other complaints. He endorsed ataxic gait during history taking and examination. For about two years, he has tingling, numbness, shooting/burning pain in the feet, and was said to have polyneuropathy. He continued to have dizziness unsteady gait during his hospital stay but it gradually improved. Carotid Doppler was done which revealed decreased velocity within the left vertebral artery. His echo revealed EF of 45-50%. CT angiography of the head and neck revealed occlusion of the left vertebral artery V1 and proximal to mid to V2 segments. MRI was recommended for the patient but it could not be done because of the presence of an unknown metallic object in his brain. He was recommended SNF for rehab according to the PT evaluation but he had exhausted his SNF days. Patient had leukocytosis with a WBC of 16.2 and was found to have a UTI which was treated with ceftriaxone. Evaluation today, patient's vitals were stable and his labs for within range and he was discharged after complete and thorough explanation of his medications. 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
[2025-01-04 13:27] VITALS: BP 144/87; PULSE 78; TEMP 36.8
[2025-01-04 13:30] VITALS: BP 128/69; PULSE 59; RESP 18; TEMP 98; O2SAT 96
[2025-01-04 21:00] VITALS: BP 138/68; PULSE 65; RESP 20; TEMP 99.8; O2SAT 95
[2025-01-05] VITALS (8 sets, daily range): BP systolic 116–141; BP diastolic 73–90; PULSE 67–85; RESP 18; TEMP 97.4–98.9; O2SAT 95–98
--- NOTE | 2025-01-05 10:53 | DVHPN2 ---
Progress Note - Dictate Date Seen: Jan 05, 2025 Medical Necessity Reason Pt with a Central, PICC or Fol: No Subjective Mr. Loredo with a 70 years old right-handed gentleman with a history of hypertension, diabetes, coronary artery disease, atrial fibrillation, deg dissection, he came to the [facility] on 12/27/2024 weakness, frequent fall. I have seen and examined the patient, I have talked to his nurse and sitter, he is alert and oriented x3, good social skills He told him that he refused to be transferred to another facility yesterday because they were taking him to a [facility] [employer] [place] [facility] Otherwise he has no new complaints UDS, 12/28/2024: Cannabinoids CBC, 12/31/2024: Unremarkable CMP, 12/29/2024: Unremarkable TG/HDL/LDL/HDL, 12/31/2024: 150/113/59/28 Vitamin B12, 12/28/2024: 374 Folic acid, 12/2324: 11.94 TSH, 12/28/2024: 1.01 EKG, 12/27/2024: Afib/flut and V-paced complexes TTE, 12/28/2024: LVEF borderline 45-50%, mild global hypokinesis. Mild LVH Right ventricle mildly hypokinetic. Device lead present Moderat right and left atrila dilation Mild aortic root dilation, 4.2cm Carotid Doppler, 12/28/2024: No hemodynamically significant stenosis by velocity criteria of the internal carotid arteries. Decreased velocity within the left vertebral artery may indicate hemodynamically significant stenosis CT head, 12/27/2024: 1. No CT evidence of acute intracranial abnormality. 2. Foreign body in the anterior aspect of the left anterior cranial fossa with associated beam hardening artifact as described above, of uncertain etiology. Correlate with clinical findings. CT head, 12/30/2024: STABLE EXAM. NO ACUTE INTRACRANIAL ABNORMALITY SEEN vital signs Vital Sign Date Time Temp Pulse Resp B/P (MAP) Pulse Ox O2 Delivery O2 Flow Rate FiO2 01/05/25 10:23 116/75 01/05/25 10:23 85 01/05/25 09:41 97.4 18 95 97.4 01/04/25 20:00 Room Air* 0 21 Total Intake and Output 01/04/25 01/04/25 01/05/25 15:00 23:00 07:00 Intake Total 50 ml 1550 ml 2730 ml Output Total 700 ml Balance 50 ml 850 ml 2730 ml medications Current Medications Medications Dose Ordered Sig/Stefanie Route Start Time Stop Time Status Last Admin Dose Admin Nitroglycerin 0.4 mg Q5MINP PRN SL 12/28/24 00:30 Diagnostic Test (Pha) 1 strip ACHS 12/28/24 07:00 01/04/25 12:41 1 STRIP Insulin Human Regular ACHS SC 12/28/24 07:00 01/04/25 12:39 4 UNITS Dextrose 50 ml UD PRN IV 12/28/24 01:30 Carvedilol 3.125 mg DAILY PO 12/28/24 10:00 01/05/25 10:23 3.125 MG Amlodipine Besylate 10 mg DAILY PO 12/28/24 10:00 01/05/25 10:23 10 MG Apixaban 5 mg BID PO 12/28/24 10:00 01/05/25 10:23 5 MG Acetaminophen/ Hydrocodone Bitart 1 tab Q6HPRN PRN PO 12/30/24 11:15 01/05/25 10:27 1 TAB Atorvastatin Calcium 10 mg HS PO 01/02/25 22:00 01/04/25 21:09 10 MG Ceftriaxone Sodium 50 ml @ 100 mls/hr DAILY@09 IV 01/04/25 09:00 01/04/25 10:12 100 MLS/HR objective General: the patient is well developed and nourished. No acute distress. MUSCULOSKELETAL EXAM: Status post left toe amputation, bilateral hammertoes, multiple superficial skin lesions of different age in the feet MENTAL STATUS: Awake and alert. Oriented to person, place, time and general circumstances. Poor historian SPEECH, LANGUAGE, HIGHER CORTICAL FUNCTION: no aphasia or dysathria. CRANIAL NERVES: Pupils are equal, round, Rt: 6mm, nonreactive. Lt: 4mm, reactive. No abduction, weakness in up and the low gazing in the right eye. Double vision with both eyes open, but without gaze evoked nystagmus. Facial sensation intact in all three divisions bilaterally. Mandibular strength intact. Facial muscles symmetrical and strength intact. Tongue midline. No fasciculations or atrophy. SENSATION: Sensation to touch and pinprick is diminished in the right arm than leg Pinprick diminished distally in the lower extremities MOTOR: Normal tone in the upper and lower extremity. Normal muscle bulk. No fasciculations. No abnormal movements or posturing. Muscle strength feels mildly weak in the right arm and leg, REFLEXES: Deep tendon reflexes are symmetrically diminished. No pathological reflexes. CEREBELLAR/COORDINATION: Finger to nose is normal bilaterally. 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 Brain aneurysm status post coiling ? Cognitive dysfunction/vascular dementia Vertebral artery occlusion Diabetic polyneuropathy Atrial fibrillation Assessment/Plan Monitoring Supportive treatment Telemetry MRI brain scan, not a good candidate because of unknown metallic object in brain [facility] information release Eliquis 5 mg b.i.d. Lipitor 10 mg q.d. Foot care Daily foot inspection Wide, soft and protect she was only More recommendation per clinical course This medical document was created using an electronic medical record system with [employer] computerized dictation system. Although this document has been carefully reviewed, there may still be some phonetic and typographical errors. These Prognosis poor Dietary Evaluation Review Comments: 1) Add 60g CCHO restriction to cardiac diet 2) Encourage optimal PO intake 3) Initiate MVI @ 1 tb qd 4) Follow-up with cardiology and podiatry 5) Continue to monitor I&O, labs, and skin integrity Expected Outcomes/Goals: 1) appetite and labs to improve 2) wound to improve 3) gradual wt loss 4) f/u in 3-5 days Plan discussed with: Patient, Other TRAVIS TREVIÑO MD Jan 05, 2025 10:53
--- NOTE | 2025-01-05 18:21 | DVHPNRES ---
Progress Note Date Seen: Jan 05, 2025 Resident Creating Document: HARJEET BARKER RESIDENT Medical Necessity Reason Pt with a Central, PICC or Fol: No Subjective Review of Systems This is a 69-year-old male with history of repair of aortic dissection with stent placed, atrial fibrillation with dual-chamber left-sided pacemaker in place on Eliquis, cerebrovascular accident with some neurologic deficits, peripheral arterial disease status post left 2nd toe amputation, uncontrolled diabetes mellitus because of nonadherence to medication and hypertension who presented to the ER with the complaints of dizziness followed by fall twice.He said he got dizzy while walking and had to sit to regain balance. He also had right-sided lower chest pain for the same duration. He also reports having increasing weakness in the legs. The pain is sharp and aching in nature, worse with movement, deep breathing or coughing. He denies any associated shortness of breath, abdominal pain, nausea, vomiting or any other complaints. He endorsed ataxic gait during history taking and examination. For about two years, he has tingling, numbness, shooting/burning pain in the feet, he was said to have polyneuropathy. Past medical history: Hypertension, diabetes mellitus,cerebrovascular accident with remaining neurologic deficits, peripheral neuropathy Past surgical history: Aortic dissection with stent placed (12 years ago) , atrial fibrillation with dual-chamber left-sided pacemaker in place (10 years ago),peripheral arterial disease status post left 2nd toe amputation Home medications: Eliquis, Lipitor Allergies: None Family history: Multiple siblings of coronary artery disease Social history: Lives in a travel trailer, does not have a wheelchair or walker Smoking history: 50 pack year smoking history, smoking 3-4 packs of cigarettes since 17 years of age Alcohol history: heavy drinking for 25 years Drugs history: None PCP: Dr. Erickson Dillard Code status: Full code 12/29-He still complains of dizziness and has an unsteady gait on trying to walk. Vitals have been unstable. He has pain below the rib cage on both sides. His carotid Doppler revealed decreased velocity within left vertebral artery. His echo revealed EF of 45-50%. He is pending CT angiography of the head and neck tomorrow to rule out stenosis. 12/30-The patient mentioned that he had a fall in the bathroom this morning while trying to wash his hands and he hit the back of his head on the wall. He mentions he did not lose consciousness. 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 Head CT was done which was unremarkable. Patient is stable. Vascular surgery will be consulted for the same. 12/31- Patient reports same symptoms such as dizziness and headache. Neurology consultation has been requested but is pending at this time. 01/01-The vitals have been stable. The patient still complains of dizziness and weakness. Dr Krishnamurthy saw the patient and recommended MRI brain for the patient and added lipitor 20 mg HS to the medication regime. network services project manager spoke with the patient and he agreed to go to SNF for physical therapy and rehab. 01/02- The patient was seen at bedside. His vitals have been stable [place] [address]. Patient also complained of cough but no fever. COVID and influenza tests were ordered for the same. Patient could not undergo MRI brain because of the presence of an unknown metallic object in his brain and Dr. Krishnamurthy was informed of the same. PT evaluation was done and he was recommended SNF for rehab. network services project manager talked to the patient about the possibility of being discharged to a boarding home, as the patient has exhausted his SNF days but the patient did not seem to agree with that arrangement. Patient mentioned he wants had to be transported back to his [place] to [place]. Artistic Director was contacted again talked to the patient about th possibilities once he is discharged. 01/03-patient was seen today at bedside, patient with a leukocytosis, WBC today 16.2, patient reported urinary incontinence for last couple of months. Today Urinalysis revealed urine, nitrite 1+ leukocyte esterase 3+, WBC 132, bacteria moderate. Ordered ceftriaxone 1 g IV daily, pending urine culture. As per social service on 01/03/2026-[facility] will contact patient for placement today, patient needs to decide whether to agree to placement or discharge to previous. If patient agrees to placement, services can be obtained, [facility] has already accepted. Patient can receive [employer] for transport. 01/05- the patient was seen at bedside today. The patient was discharged yesterday but he refused to leave and he appealed the decision. He was seen by Neurology today and she was continued on the same medication. His urine culture reports came out today and showed positive for E coli and ESBL, so his discharge was canceled and he was put on IV meropenem. Objective vital signs Vital Sign Date Time Temp Pulse Resp B/P (MAP) Pulse Ox O2 Delivery O2 Flow Rate FiO2 01/05/25 17:29 97.6 74 18 137/90 (106) 98 97.6 01/05/25 08:00 Room Air* 0 21 Total Intake and Output 01/04/25 01/04/25 01/05/25 15:00 23:00 07:00 Intake Total 50 ml 1550 ml 2730 ml Output Total 700 ml Balance 50 ml 850 ml 2730 ml medications Current Medications Medications Dose Ordered Sig/Stefanie Route Start Time Stop Time Status Last Admin Dose Admin Nitroglycerin 0.4 mg Q5MINP PRN SL 12/28/24 00:30 Diagnostic Test (Pha) 1 strip ACHS 12/28/24 07:00 01/05/25 17:00 1 STRIP Insulin Human Regular ACHS SC 12/28/24 07:00 01/05/25 17:33 3 UNITS Dextrose 50 ml UD PRN IV 12/28/24 01:30 Carvedilol 3.125 mg DAILY PO 12/28/24 10:00 01/05/25 10:23 3.125 MG Amlodipine Besylate 10 mg DAILY PO 12/28/24 10:00 01/05/25 10:23 10 MG Apixaban 5 mg BID PO 12/28/24 10:00 01/05/25 10:23 5 MG Acetaminophen/ Hydrocodone Bitart 1 tab Q6HPRN PRN PO 12/30/24 11:15 01/05/25 10:27 1 TAB Atorvastatin Calcium 10 mg HS PO 01/02/25 22:00 01/04/25 21:09 10 MG Meropenem 50 ml @ 17 mls/hr Q8HR IV 01/05/25 22:00 UNV Examination General Appearance: Alert, Oriented X3, Cooperative, Mild distress HEENT: Atraumatic, Mucous membranes moist/pink Respiratory: Clear to auscultation, Normal air movement, No added sounds Cardiovascular: Regular rate, Normal S1, Normal S2, No murmurs Abdominal/ : Active bowel sounds, Soft, no distention, right upper abdomen tenderness, tenderness present over right lower ribs Extremities:bilateral lower extremity skin erythematous with multiple small ulcers noted at the anterior surfaces of both legs, left 2nd toe amputated. Skin: No Significant rash, except past surgical scars Neuro: Normal speech, mild right-sided weakness, peripheral vision loss in both eyes, right lateral rectus muscle weak, Ataxic gait. Psych/Mental Status: Mental status NL, Mood NL Nurse was there as building contractor during examination laboratory and microbiology Laboratory Tests 01/04/25 06:11 Test 01/04/25 06:11 Range/Units Serum Glucose 135 H 74-106 mg/dL Microbiology Date/Time Source Procedure Growth Status 01/03/25 11:13 Voided Urine Urine Culture - Final Escherichia coli - ESBL Complete Labs and/or images reviewed: Labs reviewed by me, Image(s) reviewed by me Problem List/Assessment/Plan Problem List/Assessment/Plan Chest pain rule out ACS Atrial fibrillation -EKG: AFib -troponin 13 -nitroglycerin, morphine, oxygen given -Eliquis 5 mg p.o. b.i.d. for AFib CHF with minimally reduced EF echo-LVEF borderline 45-50%, mild global hypokinesis. Mild LVH Right ventricle mildly hypokinetic. Device lead present Moderate right and left atria dilation ruled out PE Ddimer-8.53 CTA-No evidence for large pulmonary embolism. 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 Endograft extends into the proximal abdominal aorta. Aneurysm sac measures 5.2 cm in the thoracic aorta and 4.9 cm in the proximal abdominal aorta. This is inadequately characterized due to the majority of contrast being within the pulmonary artery circulation. 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 Brain aneurysm status post coiling Uncontrolled diabetes mellitus Lantus 20 units Insulin sliding scale Uncontrolled hypertension Aortic dissection status post stent placement Amlodipine 10 mg p.o. daily Carvedilol 3.25 daily Peripheral arterial disease/hyperlipidemia Lipitor 40 mg Diabetic polyneuropathy Social Unstable housing and assistance for mobility (Wheelchair, Walker? ) due to fall risk UTI, complicated E coli and ESBL IV meropenem GI prophylaxis: Pantoprazole DVT prophylaxis: Eliquis Diet: Cardiac Goals of care discussed with the patient for more than 27 minutes: Full code status Case discussed with Dr Donnelly, patient and RN Plan discussed with: Patient, Other (RN) Plan discussed with: Patient Dietary Evaluation Review Comments: 1) Add 60g CCHO restriction to cardiac diet 2) Encourage optimal PO intake 3) Initiate MVI @ 1 tb qd 4) Follow-up with cardiology and podiatry 5) Continue to monitor I&O, labs, and skin integrity Expected Outcomes/Goals: 1) appetite and labs to improve 2) wound to improve 3) gradual wt loss 4) f/u in 3-5 days Date of Service: Jan 05, 2025 Billing Provider: ABHINAV GOODE MD Common Visit Codes: 40342-[id number] INP/OBS CARE(HIGH) HARJEET BARKER RESIDENT Jan 05, 2025 18:21 ABHINAV GOODE MD Jan 08, 2025 22:17
[2025-01-05] MEDS: MEROPENEM 1GM IVPB 50 ML IV SCH (22:58)
[2025-01-06 05:00] VITALS: BP 124/84; PULSE 61; RESP 16; TEMP 97.9; O2SAT 96
[2025-01-06 06:08] LABS: Hematocrit 39.1 % (41.0-53.0); Hemoglobin 13.7 g/dL (13.5-17.5); Mean Corpuscular Hemoglobin 28.6 pg (28.0-32.0); Mean Corpuscular Volume 81.8 fL (80.0-100.0)
[2025-01-06 06:27] LABS: Anion Gap 9 (5-15); Carbon Dioxide 26 mmol/L (20-31); Chloride 105 mmol/L (98-107); Potassium 3.8 mmol/L (3.5-5.1); Sodium 140 mmol/L (136-145)
[2025-01-06 06:28] LABS: Calcium 9.6 mg/dL (8.7-10.4)
[2025-01-06 06:33] LABS: BUN/Creatinine Ratio 20.8 (10.0-20.0); Blood Urea Nitrogen 20 mg/dL (9-23)
[2025-01-06 06:37] LABS: Glucose 136 mg/dL (74-106)
[2025-01-06 09:00] VITALS: BP 127/90; PULSE 65; RESP 16; TEMP 97.8; O2SAT 97
[2025-01-06 10:08] LABS: Total Cells Counted 100.0 (100)
[2025-01-06 13:00] VITALS: BP 138/98; PULSE 79; RESP 16; TEMP 97.7; O2SAT 98
--- NOTE | 2025-01-06 14:11 | DVHPNRES ---
Progress Note Date Seen: Jan 06, 2025 Resident Creating Document: HARJEET BARKER RESIDENT Medical Necessity Reason Pt with a Central, PICC or Fol: No Subjective Review of Systems This is a 69-year-old male with history of repair of aortic dissection with stent placed, atrial fibrillation with dual-chamber left-sided pacemaker in place on Eliquis, cerebrovascular accident with some neurologic deficits, peripheral arterial disease status post left 2nd toe amputation, uncontrolled diabetes mellitus because of nonadherence to medication and hypertension who presented to the ER with the complaints of dizziness followed by fall twice.He said he got dizzy while walking and had to sit to regain balance. He also had right-sided lower chest pain for the same duration. He also reports having increasing weakness in the legs. The pain is sharp and aching in nature, worse with movement, deep breathing or coughing. He denies any associated shortness of breath, abdominal pain, nausea, vomiting or any other complaints. He endorsed ataxic gait during history taking and examination. For about two years, he has tingling, numbness, shooting/burning pain in the feet, he was said to have polyneuropathy. Past medical history: Hypertension, diabetes mellitus,cerebrovascular accident with remaining neurologic deficits, peripheral neuropathy Past surgical history: Aortic dissection with stent placed (12 years ago) , atrial fibrillation with dual-chamber left-sided pacemaker in place (10 years ago),peripheral arterial disease status post left 2nd toe amputation Home medications: Eliquis, Lipitor Allergies: None Family history: Multiple siblings of coronary artery disease Social history: Lives in a travel trailer, does not have a wheelchair or walker Smoking history: 50 pack year smoking history, smoking 3-4 packs of cigarettes since 17 years of age Alcohol history: heavy drinking for 25 years Drugs history: None PCP: Dr. Erickson Dillard Code status: Full code 12/29-He still complains of dizziness and has an unsteady gait on trying to walk. Vitals have been unstable. He has pain below the rib cage on both sides. His carotid Doppler revealed decreased velocity within left vertebral artery. His echo revealed EF of 45-50%. He is pending CT angiography of the head and neck tomorrow to rule out stenosis. 12/30-The patient mentioned that he had a fall in the bathroom this morning while trying to wash his hands and he hit the back of his head on the wall. He mentions he did not lose consciousness. 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 Head CT was done which was unremarkable. Patient is stable. Vascular surgery will be consulted for the same. 12/31- Patient reports same symptoms such as dizziness and headache. Neurology consultation has been requested but is pending at this time. 01/01-The vitals have been stable. The patient still complains of dizziness and weakness. Dr Krishnamurthy saw the patient and recommended MRI brain for the patient and added lipitor 20 mg HS to the medication regime. micrographics services supervisor spoke with the patient and he agreed to go to SNF for physical therapy and rehab. 01/02- The patient was seen at bedside. His vitals have been stable [place] [id number]. Patient also complained of cough but no fever. COVID and influenza tests were ordered for the same. Patient could not undergo MRI brain because of the presence of an unknown metallic object in his brain and Dr. Krishnamurthy was informed of the same. PT evaluation was done and he was recommended SNF for rehab. micrographics services supervisor talked to the patient about the possibility of being discharged to a boarding home, as the patient has exhausted his SNF days but the patient did not seem to agree with that arrangement. Patient mentioned he wants had to be transported back to his home [place] to [place]. Final Assembly Inspector was contacted again talked to the patient about th possibilities once he is discharged. 01/03-patient was seen today at bedside, patient with a leukocytosis, WBC today 16.2, patient reported urinary incontinence for last couple of months. Today Urinalysis revealed urine, nitrite 1+ leukocyte esterase 3+, WBC 132, bacteria moderate. Ordered ceftriaxone 1 g IV daily, pending urine culture. As per social service on 01/03/2026-[facility] will contact patient for placement today, patient needs to decide whether to agree to placement or discharge to previous. If patient agrees to placement, services can be obtained, [facility] has already accepted. Patient can receive [employer] for transport. 01/05- the patient was seen at bedside today. The patient was discharged yesterday but he refused to leave and he appealed the decision. He was seen by Neurology today and she was continued on the same medication. His urine culture reports came out today and showed positive for E coli and ESBL, so his discharge was canceled and he was put on IV meropenem. 01/06- The patient was seen at bedside today. The patient been put on IV Meropenem for ESBL which will be continued for 7 days, post which he will be discharged discharge planning will be done with protective services social worker regarding home health and boarding care placement. Objective vital signs Vital Sign Date Time Temp Pulse Resp B/P (MAP) Pulse Ox O2 Delivery O2 Flow Rate FiO2 01/06/25 10:40 127/90 01/06/25 10:39 65 01/06/25 05:00 97.9 16 96 97.9 01/05/25 20:00 Room Air* 0 21 Total Intake and Output 01/05/25 01/05/25 01/06/25 15:00 23:00 07:00 Intake Total 900 ml 530 ml Output Total 800 ml 900 ml Balance 100 ml -370 ml medications Current Medications Medications Dose Ordered Sig/Stefanie Route Start Time Stop Time Status Last Admin Dose Admin Nitroglycerin 0.4 mg Q5MINP PRN SL 12/28/24 00:30 Diagnostic Test (Pha) 1 strip ACHS 12/28/24 07:00 01/06/25 12:32 1 STRIP Insulin Human Regular ACHS SC 12/28/24 07:00 01/06/25 12:33 3 UNITS Dextrose 50 ml UD PRN IV 12/28/24 01:30 Carvedilol 3.125 mg DAILY PO 12/28/24 10:00 01/06/25 10:39 3.125 MG Amlodipine Besylate 10 mg DAILY PO 12/28/24 10:00 01/06/25 10:40 10 MG Apixaban 5 mg BID PO 12/28/24 10:00 01/06/25 10:40 5 MG Acetaminophen/ Hydrocodone Bitart 1 tab Q6HPRN PRN PO 12/30/24 11:15 01/06/25 13:37 1 TAB Atorvastatin Calcium 10 mg HS PO 01/02/25 22:00 01/05/25 22:59 10 MG Meropenem 50 ml @ 17 mls/hr Q8HR IV 01/05/25 22:00 01/06/25 05:29 17 MLS/HR Examination General Appearance: Alert, Oriented X3, Cooperative, Mild distress HEENT: Atraumatic, Mucous membranes moist/pink Respiratory: Clear to auscultation, Normal air movement, No added sounds Cardiovascular: Regular rate, Normal S1, Normal S2, No murmurs Abdominal/ : Active bowel sounds, Soft, no distention, right upper abdomen tenderness, tenderness present over right lower ribs Extremities:bilateral lower extremity skin erythematous with multiple small ulcers noted at the anterior surfaces of both legs, left 2nd toe amputated. Skin: No Significant rash, except past surgical scars Neuro: Normal speech, mild right-sided weakness, peripheral vision loss in both eyes, right lateral rectus muscle weak, Ataxic gait. Psych/Mental Status: Mental status NL, Mood NL Nurse was there as metal sprayer machined parts during examination laboratory and microbiology Laboratory Tests 01/06/25 05:35 Test 01/06/25 05:35 Range/Units Serum Glucose 136 H 74-106 mg/dL Microbiology Date/Time Source Procedure Growth Status 01/03/25 11:13 Voided Urine Urine Culture - Final Escherichia coli - ESBL Complete Labs and/or images reviewed: Labs reviewed by me, Image(s) reviewed by me Problem List/Assessment/Plan Problem List/Assessment/Plan Chest pain ruled out ACS Atrial fibrillation -EKG: AFib -troponin 13 -nitroglycerin, morphine, oxygen given -Eliquis 5 mg p.o. b.i.d. for AFib CHF with minimally reduced EF echo-LVEF borderline 45-50%, mild global hypokinesis. Mild LVH Right ventricle mildly hypokinetic. Device lead present Moderate right and left atria dilation ruled out PE Ddimer-8.53 CTA-No evidence for large pulmonary embolism. 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 Endograft extends into the proximal abdominal aorta. Aneurysm sac measures 5.2 cm in the thoracic aorta and 4.9 cm in the proximal abdominal aorta. This is inadequately characterized due to the majority of contrast being within the pulmonary artery circulation. 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 Brain aneurysm status post coiling Uncontrolled diabetes mellitus Lantus 20 units Insulin sliding scale Uncontrolled hypertension Aortic dissection status post stent placement Amlodipine 10 mg p.o. daily Carvedilol 3.25 daily Peripheral arterial disease/hyperlipidemia Lipitor 40 mg Diabetic polyneuropathy Social Unstable housing and assistance for mobility (Wheelchair, Walker? ) due to fall risk UTI, complicated E coli and ESBL IV meropenem GI prophylaxis: Pantoprazole DVT prophylaxis: Eliquis Diet: Cardiac Goals of care discussed with the patient for more than 27 minutes: Full code status Case discussed with Dr Donnlely, patient and RN Plan discussed with: Patient, Other (RN) Plan discussed with: Patient Dietary Evaluation Review Comments: 1) Add 60g CCHO restriction to cardiac diet 2) Encourage optimal PO intake 3) Initiate MVI @ 1 tb qd 4) Follow-up with cardiology and podiatry 5) Continue to monitor I&O, labs, and skin integrity Expected Outcomes/Goals: 1) appetite and labs to improve 2) wound to improve 3) gradual wt loss 4) f/u in 3-5 days Date of Service: Jan 06, 2025 Billing Provider: ABHINAV GOODE MD Common Visit Codes: 24042-[id number] INP/OBS CARE(HIGH) HARJEET BARKER RESIDENT Jan 06, 2025 14:11 JEFF ROWLEY RESIDENT Jan 06, 2025 19:11 ABHINAV GOODE MD Jan 08, 2025 22:21
[2025-01-06 17:00] VITALS: BP 128/84; PULSE 61; RESP 16; TEMP 97.8; O2SAT 99
[2025-01-06 20:00] VITALS: PULSE 75; RESP 18; O2SAT 96
[2025-01-06 21:00] VITALS: BP 129/94; PULSE 64; RESP 18; TEMP 97.8; O2SAT 97
[2025-01-07] VITALS (8 sets, daily range): BP systolic 117–145; BP diastolic 62–87; PULSE 59–82; RESP 17–20; TEMP 97.4–98; O2SAT 96–98
[2025-01-07 06:59] LABS: Hematocrit 38.7 % (41.0-53.0); Hemoglobin 13.5 g/dL (13.5-17.5); Mean Corpuscular Hemoglobin 28.7 pg (28.0-32.0); Mean Corpuscular Volume 82.4 fL (80.0-100.0); Nucleated Red Blood Cells % 0.0 %
[2025-01-07 07:05] LABS: Chloride 106 mmol/L (98-107); Potassium 4.0 mmol/L (3.5-5.1); Sodium 140 mmol/L (136-145)
[2025-01-07 07:06] LABS: Anion Gap 8 (5-15); Calcium 9.3 mg/dL (8.7-10.4); Carbon Dioxide 26 mmol/L (20-31)
[2025-01-07 07:11] LABS: BUN/Creatinine Ratio 20.4 (10.0-20.0); Blood Urea Nitrogen 21 mg/dL (9-23)
[2025-01-07 07:15] LABS: Glucose 141 mg/dL (74-106)
--- NOTE | 2025-01-07 16:35 | DVHDSRES ---
Discharge Summary Date of Admission Resident Creating Document: HARJEET BARKER RESIDENT Dec 28, 2024 at 00:26 Date of Discharge: Jan 04, 2025 Admitting Diagnosis chest pain Labs/Diagnostic Data: Laboratory Results Test 01/07/25 11:51 01/07/25 05:13 01/06/25 05:35 01/03/25 11:13 POC Glucose 186 mg/dl (70-106) White Blood Count 5.7 10^3/uL (4.4-10.8) Red Blood Count 4.70 10^6/uL (4.5-5.90) Hemoglobin 13.5 g/dL (13.5-17.5) Hematocrit 38.7 % (41.0-53.0) Mean Corpuscular Volume 82.4 fL (80.0-100.0) Mean Corpuscular Hemoglobin 28.7 pg (28.0-32.0) Mean Corpuscular Hemoglobin Concent 34.8 g/dL (32.0-36.0) Red Cell Distribution Width 15.7 % (11.8-14.3) Platelet Count 157 10^3/uL (140-450) Mean Platelet Volume 8.3 fL (6.9-10.8) Neutrophils (%) (Auto) 51.9 % (37.0-80.0) Lymphocytes (%) (Auto) 27.7 % (10.0-50.0) Monocytes (%) (Auto) 16.3 % (0.0-12.0) Eosinophils (%) (Auto) 3.3 % (0.0-7.0) Basophils (%) (Auto) 0.8 % (0.0-2.0) Neutrophils # (Auto) 3.0 10 ^3/uL (1.6-8.6) Lymphocytes # (Auto) 1.6 10 ^3/uL (0.4-5.4) Monocytes # (Auto) 0.9 10 ^3/uL (0-1.3) Eosinophils # (Auto) 0.2 10 ^3/uL (0-0.8) Basophils # (Auto) 0 10 ^3/uL (0-0.2) Nucleated Red Blood Cells 0.0 % Sodium Level 140 mmol/L (136-145) Potassium Level 4.0 mmol/L (3.5-5.1) Chloride Level 106 mmol/L (98-107) Carbon Dioxide Level 26 mmol/L (20-31) Anion Gap 8 (5-15) Blood Urea Nitrogen 21 mg/dL (9-23) Creatinine 1.03 mg/dL (0.700-1.30) Glomerular Filtration Rate Calc 79 mL/min (>90) BUN/Creatinine Ratio 20.4 (10.0-20.0) Serum Glucose 141 mg/dL (74-106) Calcium Level 9.3 mg/dL (8.7-10.4) Differential Total Cells Counted 100.0 (100) Neutrophils % (Manual) 64 (37.0-80.0) Band Neutrophils % (Manual) 0 Lymphocytes % (Manual) 21 (10.0-50.0) Monocytes % (Manual) 12 (0-12) Eosinophils % (Manual) 3 (0-7) Basophils % (Manual) 0 (0.0-2.0) Metamyelocytes % (manual) 0 Myelocytes % (Manual) 0 Promyelocytes % (Manual) 0 Blast Cells % (Manual) 0 Reactive Lymphocytes 0 Platelet Estimate Adequate Urine Color Colorless (Yellow) Urine Clarity Turbid (Clear) Urine pH 6.0 (5.0-9.0) Urine Specific [place] 1.010 (1.001-1.035) Urine Protein Trace (Negative) Urine Ketones Negative (Negative) Urine Blood 1+ /uL (Negative) Urine Nitrite 1+ (Negative) Urine Bilirubin Negative (Negative) Urine Urobilinogen Normal mg/dL (Negative) Urine Leukocyte Esterase 3+ /uL (Negative) Urine RBC 5 /hpf (0 - 3) Urine Microscopic WBC 132 /HPF (0-3) Urine Squamous Epithelial Cells Few /hpf (<5) Urine Bacteria Mod /hpf (None Seen) Urine Sperm Present /hpf (None Seen) Urine Glucose Normal mg/dL (Normal) Test 01/02/25 14:46 12/31/24 06:26 12/29/24 06:05 12/28/24 15:30 Influenza Type A Antigen Negative (Negative) Influenza Type B Antigen Negative (Negative) SARS-CoV-2 Antigen (Rapid) Negative (NEGATIVE) Triglycerides Level 150 mg/dL (< 150) Cholesterol Level 113 mg/dL (< 200) LDL Cholesterol 59 mg/dL (< 100) HDL Cholesterol 28 mg/dL (40-59) Folic Acid 11.94 ng/mL (>5.38) Total Bilirubin 0.5 mg/dL (0.2-1.0) Aspartate Amino Transferase (AST) 24 U/L (13-40) Alanine Aminotransferase (ALT) 49 U/L (7-40) Alkaline Phosphatase 81 U/L (46-116) Total Protein 6.7 g/dL (5.7-8.2) Albumin 3.8 g/dL (3.2-4.8) Urine Opiates Screen Neg (NEGATIVE) Urine Fentanyl Screen Neg (NEGATIVE) Urine Barbiturates Screen Neg (NEGATIVE) Urine Phencyclidine Screen Neg (NEGATIVE) Urine Amphetamines Screen Neg (NEGATIVE) Urine Benzodiazepines Screen Neg (NEGATIVE) Urine Cocaine Screen Neg (NEGATIVE) Urine Cannabinoids Screen Pos (NEGATIVE) Test 12/28/24 09:25 12/28/24 00:19 12/27/24 21:01 D-Dimer, Quantitative 8.53 mg/L FEU (0.0-0.49) Vitamin B12 Level 374 pg/mL (211-911) Thyroid Stimulating Hormone (TSH) 1.01 uIU/mL (0.55-4.78) Troponin I High Sensitivity 14 ng/L (</=54) Hemoglobin A1c 6.5 % A1C (<5.7) Magnesium Level 2.1 mg/dL (1.6-2.6) B-Type Natriuretic Peptide 193.67 pg/mL (0-100) Other Laboratory Tests 01/07/25 05:13 Brief Hx & Hospital Course: This is a 69-year-old male with history of repair of aortic dissection with stent placed, atrial fibrillation with dual-chamber left-sided pacemaker in place on Eliquis, cerebrovascular accident with some neurologic deficits, peripheral arterial disease status post left 2nd toe amputation, uncontrolled diabetes mellitus because of nonadherence to medication and hypertension who presented to the ER with the complaints of dizziness followed by fall twice.He said he got dizzy while walking and had to sit to regain balance. He also had right-sided lower chest pain for the same duration. He also reported having increasing weakness in the legs. The pain was sharp and aching in nature, worse with movement, deep breathing or coughing. He denied any associated shortness of breath, abdominal pain, nausea, vomiting or any other complaints. He endorsed ataxic gait during history taking and examination. For about two years, he had tingling, numbness, shooting/burning pain in the feet, he was said to have polyneuropathy. This hospital stay, the patient complained of dizziness and an unstable gait. Doppler revealed decreased velocity in the left vertebral artery and echo revealed EF of 45-50%. Patient had a fall in the bathroom during his stay and mentioned hitting the back of his head, for which a CT was done which was unremarkable. Neurology saw the patient and recommended MRI which could not be done because of the presence of an unknown metallic object in his brain. They also recommended adding Lipitor 20 mg HS to his the medication regime which was followed. Patient also had a UTI during his course of duration in the hospital and was found to be positive for E coli ESBL on urine culture, for which IV meropenem was started on 01/05/2025. The patient was recommended SNF for rehab and will be discharged there on IV meropenem to be continued for 10 days with stop date 01/15/2025. Past medical history: Hypertension, diabetes mellitus,cerebrovascular accident with remaining neurologic deficits, peripheral neuropathy Past surgical history: Aortic dissection with stent placed (12 years ago) , atrial fibrillation with dual-chamber left-sided pacemaker in place (10 years ago),peripheral arterial disease status post left 2nd toe amputation Home medications: Eliquis, Lipitor Allergies: None Family history: Multiple siblings of coronary artery disease Social history: Lives in a travel trailer, does not have a wheelchair or walker Smoking history: 50 pack year smoking history, smoking 3-4 packs of cigarettes since 17 years of age Alcohol history: heavy drinking for 25 years Drugs history: None PCP: Dr. Erickson Dillard Code status: Full code General Appearance: Alert, Oriented X3, Cooperative, Mild distress HEENT: Atraumatic, Mucous membranes moist/pink Respiratory: Clear to auscultation, Normal air movement, No added sounds Cardiovascular: Regular rate, Normal S1, Normal S2, No murmurs Abdominal/ : Active bowel sounds, Soft, no distention, right upper abdomen tenderness, tenderness present over right lower ribs Extremities:bilateral lower extremity skin erythematous with multiple small ulcers noted at the anterior surfaces of both legs, left 2nd toe amputated. Skin: No Significant rash, except past surgical scars Neuro: Normal speech, mild right-sided weakness, peripheral vision loss in both eyes, right lateral rectus muscle weak, Ataxic gait. Psych/Mental Status: Mental status NL, Mood NL Operations or Procedures 1.PROCEDURE(s): CXRP - CHEST PORTABLE REASON: SOB ORDER NUMBER(s): [id number], ACCESSION NUMBER(s): [id number] INDICATION: SOB TECHNIQUE: Frontal view of the chest. COMPARISON: XY CHEST PORTABLE on DOS: 12/27/24 FINDINGS/IMPRESSION: Left-sided dual-chamber pacemaker. Aortic stent is noted. Unchanged cardiomediastinal silhouette. The lungs are clear. No pleural effusion or pneumothorax. Unchanged osseous structures. 2.PROCEDURE(s): CARCL - CAROTID DUPLX W COLOR DOP REASON: presyncope ORDER NUMBER(s): [id number], ACCESSION NUMBER(s): [id number] Indication: presyncope Technique: Real-time ultrasound images of the neck vessels with dickson-scale, color and wave Doppler were obtained. Comparison: None Findings: Gzbg-se-rlqtircy atherosclerotic plaque bilaterally. The following peak systolic velocities were recorded in cm/sec: Right internal carotid: 86 Right common carotid: 49 Right external carotid: 71 Right internal/common carotid ratio: 1.7 Left internal carotid: 91 Left common carotid: 54 Left external carotid: 92 Left internal/common carotid ratio: 1.7 Right vertebral artery: Patent with normal antegrade direction of flow. Left vertebral artery: Patent with normal antegrade direction of flow. Lower velocity compared to the right Impression: No hemodynamically significant stenosis by velocity criteria of the internal carotid arteries. Decreased velocity within the left vertebral artery may indicate hemodynamically significant stenosis 3.PROCEDURE(s): CTACH - CT ANGIO CHEST CONTRAST REASON: r/o PE ORDER NUMBER(s): [id number], ACCESSION NUMBER(s): [id number] Indication: r/o PE Technique: CT axial images of the abdomen and pelvis are obtained with intravenous contrast. Coronal and sagittal reformats were obtained. Radiation Dose Information: CTDI volume is 26.64 mGy. Dose-length product is 9052 mGy*cm Comparison: None FINDINGS: No large defect within the main left and right pulmonary arteries. Segmental and subsegmental branches are suboptimally opacified/ characterized, no definitive defects identified. Trachea patent. No pneumothorax. Bilateral atelectasis. Heart size at the upper limits of normal. Coronary artery calcification disease. Thoracic aortic endograft beginning in the aortic arch with fenestration into the left subclavian artery.. The thoracic aorta measures up to 5.2 cm in diameter. The proximal abdominal aorta measures approximately 4.9 cm in diameter. No aggressive osseous process. IMPRESSION: No evidence for large pulmonary embolism. 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 Endograft extends into the proximal abdominal aorta. Aneurysm sac measures 5.2 cm in the thoracic aorta and 4.9 cm in the proximal abdominal aorta. This is inadequately characterized due to the majority of contrast being within the pulmonary artery circulation. Coronary artery calcification disease. Other findings as described 4.PROCEDURE(s): [place] - ANGIO HEAD/Neck REASON: decreased velocity in left vertebral artery, dizziness ORDER NUMBER(s): [id number], ACCESSION NUMBER(s): [id number] EXAM: CT ANGIO HEAD/NECK DATE OF SERVICE: 12/30/2024 01:02 PM ORDERING PHYSICIAN: HARJEET BARKER REASON FOR EXAM: decreased velocity in left vertebral artery, dizziness TECHNIQUE: CTA of the brain and neck was performed after the administration of contrast . Axial images of the head and neck are obtained. Coronal and sagittal images were then reformatted for review. MIP reformats were obtained and reviewed. COMPARISON: Carotid ultrasound 12/28/2024 FINDINGS: FINDINGS: The right common carotid artery demonstrates no high-grade stenosis. Mild calcification of the right carotid bulb. Right internal carotid artery demonstrates no high-grade stenosis. Right middle cerebral artery demonstrates no high-grade stenosis. The right anterior cerebral artery demonstrates no high-grade stenosis. The left common carotid artery demonstrates no high-grade stenosis. Mild calcification of the left carotid bulb. Left internal carotid artery demonstrates no high-grade stenosis. The left middle cerebral artery demonstrates no high-grade stenosis. The left anterior cerebral artery demonstrates no high-grade stenosis. The right vertebral artery is dominant and demonstrates no high-grade stenosis. 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 The proximal descending thoracic aorta measures up to 5.6 cm in diameter with eccentric mural wall thrombus, incompletely characterized. There is occlusion of the proximal left vertebral artery. There is reconstitution of the mid to distal V2 segment which is overall poorly opacified and extremely small in caliber. Basilar artery demonstrates no high-grade stenosis. The bilateral posterior cerebral arteries demonstrate no high-grade stenosis. Moderate to advanced cervical degenerative disc disease. Pulmonary emphysematous changes. IMPRESSION: No large vessel high-grade stenosis of the anterior circulation. 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 Overall small caliber of the V 2, V3, V4 segments which demonstrates minimal filling. Dominant right vertebral artery. Aneurysmal dilatation of the aortic arch proximal descending thoracic aorta up to 5.6 cm. Aortic endograft. No flow seen external to the endograft along the proximal thoracic aorta visualized component. 5.PROCEDURE(s): HWOCT - HEAD WITHOUT CONTRAST REASON: s/p fall ORDER NUMBER(s): [id number], ACCESSION NUMBER(s): [id number] CLINICAL HISTORY: s/p fall TECHNIQUE: Helical scanning was performed of the head from the skull base to the vertex. Multiplanar reconstructions were performed. This exam was performed according to our departmental dose optimization program. Up-to-date CT equipment and radiation dose reduction techniques are utilized as appropriate. CTDI 59.2 DLP 165.8 COMPARISON: CT HEAD WITHOUT CONTRAST on DOS: 12/27/24 FINDINGS: There is no evidence for acute intracranial hemorrhage, acute ischemic changes, mass, mass effect, or extra-axial fluid collection. There is no hydrocephalus or midline shift. There is no effacement of the cerebral sulci and basal subarachnoid cisterns. The dickson-white matter differentiation is well maintained. There is high density material at the left anterior middle cranial fossa immediately. There is mild brain volume loss and minimal chronic small vessel schema changes. The imaged paranasal sinuses are c DEMONSTRATE MILD RIGHT AND MINIMAL LEFT MAXILLARY SINUS MUCOSAL THICKENING. IMPRESSION: STABLE EXAM. NO ACUTE INTRACRANIAL ABNORMALITY SEEN. 6.PROCEDURE(s): CXR1 - CHEST XRAY 1 VIEW REASON: ?PNA ORDER NUMBER(s): [id number], ACCESSION NUMBER(s): [id number] CHEST RADIOGRAPH Indication: PNA Technique: Single frontal view of the chest was obtained COMPARISON: CT CT ANGIO CHEST CONTRAST on DOS: 12/28/24, XY CHEST PORTABLE on DOS: 12/27/24, XY CHEST PORTABLE on DOS: 12/27/24 FINDINGS: Lines and Tubes: Left chest pacemaker Lungs: Congestion Pleura: No effusion. No pneumothorax. Cardiomediastinal contours: Descending thoracic aorta stent. Bones: Unremarkable IMPRESSION: Congestion 7.PROCEDURE(s): ECIDC - ECHO 2D MODE CARDIAC DOP REASON: Chest pain with h/o aortic dissection ORDER NUMBER(s): [id number], ACCESSION NUMBER(s): [id number] APPROVED REPORT EXAM: Two-dimensional and M-mode echocardiogram with Doppler and color Doppler. Blood Pressure: 146/91 mmHg INDICATION Chest Pain h/o aortic dissection RISK FACTORS Height: 5'10", Weight: 190 DIMENSIONS LVDd 5.3 (3.8-5.7cm) LA (2D) 5.4 (1.9-4.0cm) Aortic Root 3.9 (2.0- 3.7cm) LVDs 3.4 (2.5-4.0cm) LA (MM) (1.9-4.0cm) Aortic Cusp Exc 1.6 (1.5- 2.0cm) EF (%) 65.0 (55-70%) Rt. Atrium 5.0 (1.9-4.0cm) Asc. Aorta 4.2 cm IVSd 1.2 (0.7-1.1cm) RV (D) 3.8 (1.8-2.4cm) PWd 1.1 (0.7-1.1cm) Mitral Valve Mitral Mitral Stenosis E wave 0.74m/s MV Mean GR. mmHg E/A ratio 0.0 2D MVA cm2 Aortic Valve Aortic Valve Aortic Stenosis V1 0.84m/s AO Mean GR. 4mmHg V2 1.21m/s AO Peak GR. 6mmHg LVOT Diameter 2.4 (1.8-2.4cm) Doppler LUIS MIGUEL 3.14cm2 Pulmonic Valve V2 0.76m/s Tricuspid Valve TR Velocity 2.39m/s RVSP 26mmHg Other Information Quality : Technically Limited Rhythm : Technically limited study due to pt non-stop moving. Supratsernal views unavailable due to pt moving. Conclusion LVEF borderline 45-50%, mild global hypokinesis. Mild LVH Right ventricle mildly hypokinetic. 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 Brain aneurysm status post coiling UTI Uncontrolled diabetes mellitus Uncontrolled hypertension Aortic dissection status post stent placement Peripheral arterial disease/hyperlipidemia Diabetic polyneuropathy Discharge Disposition: Custodial Facility Discharge Instruct/Medications Diet: Consistent carbohydrate, Cardiac 2g Na,low cholest Activity: No Restrictions, As Tolerated Follow Up/Referral: follow up with pcp Medications: iv meropenem for 10 days with stop date 01/15/2025 amlodipine 10mg po daily apixaban (eliquis) 5mg bid atorvastatin (lipitor) 10mg carvedilol (coreg) 3.125 ,g keflex 500 mg po tid Scheduled Amlodipine Besylate (Amlodipine Besylate), 10 MG PO DAILY, (Reported) Amlodipine Besylate (Amlodipine Besylate), 1 TAB PO DAILY Apixaban Base (Eliquis), 5 MG PO BID, (Reported) Apixaban Base (Eliquis), 5 MG PO BID Atorvastatin Calcium (Lipitor), 1 TAB PO DAILY Carvedilol (Coreg), 3.125 MG PO DAILY Cephalexin Monohydrate (Cephalexin), 1 CAP PO TID Discharge Statement: "Patient was advised to return to the ER or call 911 if any headaches, dizziness, shortness of breath, chest pain, abdominal pain, bleeding, fevers, or worsening of medical condition. Patient was counseled about treatment plan, medications, possible side effects, patientverbalized understanding. All questions were answered to the best of my ability. This discharge took greater then 30 minutes in planning, reviewing documentation, counseling the patient, and discussing with other team members." ASSESSMENT ASSESSMENT Hospital Course This is a 69-year-old male with history of repair of aortic dissection with stent placed, atrial fibrillation with dual-chamber left-sided pacemaker in place on Eliquis, cerebrovascular accident with some neurologic deficits, peripheral arterial disease status post left 2nd toe amputation, uncontrolled diabetes mellitus because of nonadherence to medication and hypertension who presented to the ER with the complaints of dizziness followed by fall twice.He said he got dizzy while walking and had to sit on the sidewalk to regain balance. He also had right-sided lower chest pain for the same duration.The pain was sharp and aching in nature, worse with movement, deep breathing or coughing. He also reported having increasing weakness in the legs. He denied any associated shortness of breath, abdominal pain, nausea, vomiting or any other complaints. He endorsed ataxic gait during history taking and examination. For about two years, he has tingling, numbness, shooting/burning pain in the feet, and was said to have polyneuropathy. He continued to have dizziness unsteady gait during his hospital stay but it gradually improved. Carotid Doppler was done which revealed decreased velocity within the left vertebral artery. His echo revealed EF of 45-50%. CT angiography of the head and neck revealed occlusion of the left vertebral artery V1 and proximal to mid to V2 segments. MRI was recommended for the patient but it could not be done because of the presence of an unknown metallic object in his brain. He was recommended SNF for rehab according to the PT evaluation but he had exhausted his SNF days. Patient had leukocytosis with a WBC of 16.2 and was found to have a UTI which was treated with ceftriaxone. Evaluation today, patient's vitals were stable and his labs for within range and he was discharged after complete and thorough explanation of his medications. Assessment vertebral artery occlusionChest pain , likely musculoskeletal,ruled out ACSAtrial fibrillationCHF with minimally reduced EF 45-50%Right hemiparesis, gait disturbance, diplopia, right CN III paralysissecondary to strokeBrain aneurysm status post coilingUTIUncontrolled diabetes mellitusUncontrolled hypertensionAortic dissection status post stent placementPeripheral arterial disease/hyperlipidemiaDiabetic polyneuropathy Date of Service: Jan 04, 2025 Billing Provider: ABHINAV GOODE MD Common Visit Codes: 82691-EFU/OBS DISCH DAY >30min HARJEET BARKER RESIDENT Jan 07, 2025 16:35 ABHINAV GOODE MD Jan 08, 2025 23:01
--- NOTE | 2025-01-07 23:52 | DVHPN2 ---
Progress Note - Dictate Date Seen: Jan 07, 2025 Medical Necessity Reason Pt with a Central, PICC or Fol: No Subjective Mr. Loredo with a 70 years old right-handed gentleman with a history of hypertension, diabetes, coronary artery disease, atrial fibrillation, deg dissection, he came to the [facility] on 12/27/2024 weakness, frequent fall. I have seen and examined the patient, I have talked to his nurse and sitter, he is alert and oriented x3, he is not happy UDS, 12/28/2024: Cannabinoids CBC, 12/31/2024: Unremarkable CMP, 12/29/2024: Unremarkable TG/HDL/LDL/HDL, 12/31/2024: 150/113/59/28 Vitamin B12, 12/28/2024: 374 Folic acid, 12/2324: 11.94 TSH, 12/28/2024: 1.01 EKG, 12/27/2024: Afib/flut and V-paced complexes TTE, 12/28/2024: LVEF borderline 45-50%, mild global hypokinesis. Mild LVH Right ventricle mildly hypokinetic. Device lead present Moderat right and left atrila dilation Mild aortic root dilation, 4.2cm Carotid Doppler, 12/28/2024: No hemodynamically significant stenosis by velocity criteria of the internal carotid arteries. Decreased velocity within the left vertebral artery may indicate hemodynamically significant stenosis CT head, 12/27/2024: 1. No CT evidence of acute intracranial abnormality. 2. Foreign body in the anterior aspect of the left anterior cranial fossa with associated beam hardening artifact as described above, of uncertain etiology. Correlate with clinical findings. CT head, 12/30/2024: STABLE EXAM. NO ACUTE INTRACRANIAL ABNORMALITY SEEN vital signs Vital Sign Date Time Temp Pulse Resp B/P (MAP) Pulse Ox O2 Delivery O2 Flow Rate FiO2 01/07/25 21:00 97.6 64 17 145/87 (106) 98 97.6 01/07/25 20:00 Room Air* 0 21 Total Intake and Output 01/06/25 01/06/25 01/07/25 15:00 23:00 07:00 Intake Total 50 ml 1050 ml 914 ml Output Total 1000 ml 700 ml Balance 50 ml 50 ml 214 ml medications Current Medications Medications Dose Ordered Sig/Stefanie Route Start Time Stop Time Status Last Admin Dose Admin Nitroglycerin 0.4 mg Q5MINP PRN SL 12/28/24 00:30 Diagnostic Test (Pha) 1 strip ACHS 12/28/24 07:00 01/07/25 22:10 1 STRIP Insulin Human Regular ACHS SC 12/28/24 07:00 01/07/25 22:09 4 UNITS Dextrose 50 ml UD PRN IV 12/28/24 01:30 Carvedilol 3.125 mg DAILY PO 12/28/24 10:00 01/07/25 10:07 3.125 MG Amlodipine Besylate 10 mg DAILY PO 12/28/24 10:00 01/07/25 10:07 10 MG Apixaban 5 mg BID PO 12/28/24 10:00 01/07/25 21:22 5 MG Acetaminophen/ Hydrocodone Bitart 1 tab Q6HPRN PRN PO 12/30/24 11:15 01/07/25 21:22 1 TAB Atorvastatin Calcium 10 mg HS PO 01/02/25 22:00 01/07/25 21:22 10 MG Meropenem 50 ml @ 17 mls/hr Q8HR IV 01/05/25 22:00 01/07/25 21:22 17 MLS/HR objective General: the patient is well developed and nourished. No acute distress. MUSCULOSKELETAL EXAM: Status post left toe amputation, bilateral hammertoes, multiple superficial skin lesions of different age in the feet MENTAL STATUS: Awake and alert. Oriented to person, place, time and general circumstances. Poor historian SPEECH, LANGUAGE, HIGHER CORTICAL FUNCTION: no aphasia or dysathria. CRANIAL NERVES: Pupils are equal, round, Rt: 6mm, nonreactive. Lt: 4mm, reactive. No abduction, weakness in up and the low gazing in the right eye. Double vision with both eyes open, but without gaze evoked nystagmus. Facial sensation intact in all three divisions bilaterally. Mandibular strength intact. Facial muscles symmetrical and strength intact. Tongue midline. No fasciculations or atrophy. SENSATION: Sensation to touch and pinprick is diminished in the right arm than leg Pinprick diminished distally in the lower extremities MOTOR: Normal tone in the upper and lower extremity. Normal muscle bulk. No fasciculations. No abnormal movements or posturing. Muscle strength feels mildly weak in the right arm and leg, REFLEXES: Deep tendon reflexes are symmetrically diminished. No pathological reflexes. CEREBELLAR/COORDINATION: Finger to nose is normal bilaterally. 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 Brain aneurysm status post coiling ? Cognitive dysfunction/vascular dementia Vertebral artery occlusion Diabetic polyneuropathy Atrial fibrillation Assessment/Plan Monitoring Supportive treatment Telemetry MRI brain scan, not a good candidate because of unknown metallic object in brain [facility] information release Eliquis 5 mg b.i.d. Lipitor 10 mg q.d. Foot care Daily foot inspection Wide, soft and protect she was only More recommendation per clinical course This medical document was created using an electronic medical record system with [employer] dictation system. Although this document has been carefully reviewed, there may still be some phonetic and typographical errors. These Prognosis poor Dietary Evaluation Review Comments: 1) Add 60g CCHO restriction to cardiac diet 2) Encourage optimal PO intake 3) Initiate MVI @ 1 tb qd 4) Follow-up with cardiology and podiatry 5) Continue to monitor I&O, labs, and skin integrity Expected Outcomes/Goals: 1) appetite and labs to improve 2) wound to improve 3) gradual wt loss 4) f/u in 3-5 days Plan discussed with: Other TRAVIS TREVIÑO MD Jan 07, 2025 23:51
[2025-01-08] VITALS (7 sets, daily range): BP systolic 111–147; BP diastolic 61–94; PULSE 61–77; RESP 16–18; TEMP 97.6–97.9; O2SAT 95–97
--- NOTE | 2025-01-08 10:12 | DVHPNRES ---
Progress Note Date Seen: Jan 08, 2025 Resident Creating Document: JUSTINO ESTEBAN Medical Necessity Reason Pt with a Central, PICC or Fol: No Subjective Review of Systems Patient was seen today at bedside. Labs and chart reviewed. No acute complaint. Patient on IV antibiotic meropenem for E coli ESBL UTI. Patient is supposed to be discharged today to [facility] for IV antibiotic therapy. Pending for midline. Patient was seen by Neurology. Neurology recommendation reviewed and appreciated. Continue Eliquis as prescribed. Objective vital signs Vital Sign Date Time Temp Pulse Resp B/P (MAP) Pulse Ox O2 Delivery O2 Flow Rate FiO2 01/08/25 10:02 78 137/78 01/08/25 09:00 17 95 01/08/25 08:00 Room Air* 0 21 01/08/25 05:00 97.6 97.6 Total Intake and Output 01/07/25 01/07/25 01/08/25 15:00 23:00 07:00 Intake Total 982 ml 1204 ml 1510 ml Output Total 1525 ml 875 ml Balance 982 ml -321 ml 635 ml medications Current Medications Medications Dose Ordered Sig/Stefanie Route Start Time Stop Time Status Last Admin Dose Admin Nitroglycerin 0.4 mg Q5MINP PRN SL 12/28/24 00:30 Diagnostic Test (Pha) 1 strip ACHS 12/28/24 07:00 01/08/25 06:52 1 STRIP Insulin Human Regular ACHS SC 12/28/24 07:00 01/07/25 22:09 4 UNITS Dextrose 50 ml UD PRN IV 12/28/24 01:30 Carvedilol 3.125 mg DAILY PO 12/28/24 10:00 01/08/25 10:02 3.125 MG Amlodipine Besylate 10 mg DAILY PO 12/28/24 10:00 01/08/25 10:01 10 MG Apixaban 5 mg BID PO 12/28/24 10:00 01/08/25 10:01 5 MG Acetaminophen/ Hydrocodone Bitart 1 tab Q6HPRN PRN PO 12/30/24 11:15 01/08/25 10:01 1 TAB Atorvastatin Calcium 10 mg HS PO 01/02/25 22:00 01/07/25 21:22 10 MG Meropenem 50 ml @ 17 mls/hr Q8HR IV 01/05/25 22:00 01/08/25 05:35 17 MLS/HR Examination General Appearance: Not in acute distress HEENT: Atraumatic, Mucous membranes moist/pink Respiratory: Clear to auscultation, Normal air movement, No added sounds Cardiovascular: Regular rate, Normal S1, Normal S2, No murmurs Abdominal/ : Active bowel sounds, Soft, no distention, right upper abdomen tenderness, tenderness present over right lower ribs Extremities:bilateral lower extremity skin erythematous with multiple small ulcers noted at the anterior surfaces of both legs, left 2nd toe amputated. Skin: No Significant rash, except past surgical scars Neuro: Normal speech, mild right-sided weakness, peripheral vision loss in both eyes, right lateral rectus muscle weak, Ataxic gait. laboratory and microbiology Laboratory Tests 01/07/25 05:13 Test 01/07/25 05:13 Range/Units Serum Glucose 141 H 74-106 mg/dL Microbiology Date/Time Source Procedure Growth Status 01/03/25 11:13 Voided Urine Urine Culture - Final Escherichia coli - ESBL Complete Problem List/Assessment/Plan Problem List/Assessment/Plan Assessment and plan #Chest pain rule out ACS #Atrial fibrillation -EKG: AFib -troponin 13 -nitroglycerin, morphine, oxygen given -Eliquis 5 mg p.o. b.i.d. for AFib #CHF with minimally reduced EF echo-LVEF borderline 45-50%, mild global hypokinesis. Mild LVH Right ventricle mildly hypokinetic. Device lead present Moderate right and left atria dilation #ruled out PE Ddimer-8.53 CTA-No evidence for large pulmonary embolism. 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 Endograft extends into the proximal abdominal aorta. Aneurysm sac measures 5.2 cm in the thoracic aorta and 4.9 cm in the proximal abdominal aorta. This is inadequately characterized due to the majority of contrast being within the pulmonary artery circulation. 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 Brain aneurysm status post coiling #Vertebral artery occlusion # acute complicated UTI -continue meropenem as prescribed -uterine CS revealed E coli ESBL #Uncontrolled diabetes mellitus Lantus 20 units Insulin sliding scale #Uncontrolled hypertension #Aortic dissection status post stent placement Amlodipine 10 mg p.o. daily Carvedilol 3.25 daily #Peripheral arterial disease/hyperlipidemia Lipitor 40 mg #Diabetic polyneuropathy Social Unstable housing and assistance for mobility (Wheelchair, Walker? ) due to fall risk GI prophylaxis: Pantoprazole DVT prophylaxis: Eliquis Diet: Cardiac Goals of care discussed with the patient for more than 27 minutes: Full code status Case discussed with Dr Donnelly, patient and RN Plan discussed with: Patient, Other (RN) Plan discussed with: Patient Plan discussed with: Patient, Other (RN) Dietary Evaluation Review Comments: 1) Add 60g CCHO restriction to cardiac diet 2) Encourage optimal PO intake 3) Initiate MVI @ 1 tb qd 4) Follow-up with cardiology and podiatry 5) Continue to monitor I&O, labs, and skin integrity Expected Outcomes/Goals: 1) appetite and labs to improve 2) wound to improve 3) gradual wt loss 4) f/u in 3-5 days Date of Service: Jan 08, 2025 Billing Provider: ABHINAV GOODE MD Common Visit Codes: [id number] INP/OBS CARE(HIGH) JUSTINO ESTEBAN RESIDENT Jan 08, 2025 10:12 ABHINAV GOODE MD Jan 08, 2025 22:39
[2025-01-08] MEDS: HYDROcodone-ACET 5/325MG TAB PO PRN (20:57)
[2025-01-09 05:00] VITALS: BP 136/96; PULSE 69; RESP 18; TEMP 98; O2SAT 97
[2025-01-09 08:00] VITALS: RESP 18; O2SAT 97
[2025-01-09 09:00] VITALS: BP 129/83; PULSE 66; RESP 19; TEMP 98.1; O2SAT 99
[2025-01-09 13:00] VITALS: BP 107/54; PULSE 83; RESP 19; TEMP 98.2; O2SAT 99
--- NOTE | 2025-01-09 15:00 | DVHPNRES ---
Progress Note Date Seen: Jan 09, 2025 Resident Creating Document: HARJEET BARKER RESIDENT Medical Necessity Reason Pt with a Central, PICC or Fol: No Subjective Review of Systems This is a 69-year-old male with history of repair of aortic dissection with stent placed, atrial fibrillation with dual-chamber left-sided pacemaker in place on Eliquis, cerebrovascular accident with some neurologic deficits, peripheral arterial disease status post left 2nd toe amputation, uncontrolled diabetes mellitus because of nonadherence to medication and hypertension who presented to the ER with the complaints of dizziness followed by fall twice.He said he got dizzy while walking and had to sit to regain balance. He also had right-sided lower chest pain for the same duration. He also reports having increasing weakness in the legs. The pain is sharp and aching in nature, worse with movement, deep breathing or coughing. He denies any associated shortness of breath, abdominal pain, nausea, vomiting or any other complaints. He endorsed ataxic gait during history taking and examination. For about two years, he has tingling, numbness, shooting/burning pain in the feet, he was said to have polyneuropathy. Past medical history: Hypertension, diabetes mellitus,cerebrovascular accident with remaining neurologic deficits, peripheral neuropathy Past surgical history: Aortic dissection with stent placed (12 years ago) , atrial fibrillation with dual-chamber left-sided pacemaker in place (10 years ago),peripheral arterial disease status post left 2nd toe amputation Home medications: Eliquis, Lipitor Allergies: None Family history: Multiple siblings of coronary artery disease Social history: Lives in a travel trailer, does not have a wheelchair or walker Smoking history: 50 pack year smoking history, smoking 3-4 packs of cigarettes since 17 years of age Alcohol history: heavy drinking for 25 years Drugs history: None PCP: Dr. Erickson Dillard Code status: Full code 12/29-He still complains of dizziness and has an unsteady gait on trying to walk. Vitals have been unstable. He has pain below the rib cage on both sides. His carotid Doppler revealed decreased velocity within left vertebral artery. His echo revealed EF of 45-50%. He is pending CT angiography of the head and neck tomorrow to rule out stenosis. 12/30-The patient mentioned that he had a fall in the bathroom this morning while trying to wash his hands and he hit the back of his head on the wall. He mentions he did not lose consciousness. 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 Head CT was done which was unremarkable. Patient is stable. Vascular surgery will be consulted for the same. 12/31- Patient reports same symptoms such as dizziness and headache. Neurology consultation has been requested but is pending at this time. 01/01-The vitals have been stable. The patient still complains of dizziness and weakness. Dr Krishnamurthy saw the patient and recommended MRI brain for the patient and added lipitor 20 mg HS to the medication regime. technical services representative spoke with the patient and he agreed to go to SNF for physical therapy and rehab. 01/02- The patient was seen at bedside. His vitals have been stable [place] [address]. Patient also complained of cough but no fever. COVID and influenza tests were ordered for the same. Patient could not undergo MRI brain because of the presence of an unknown metallic object in his brain and Dr. Krishnamurthy was informed of the same. PT evaluation was done and he was recommended SNF for rehab. technical services representative talked to the patient about the possibility of being discharged to a boarding home, as the patient has exhausted his SNF days but the patient did not seem to agree with that arrangement. Patient mentioned he wants had to be transported back to his [place] to [place]. Cfo was contacted again talked to the patient about th possibilities once he is discharged. 01/03-patient was seen today at bedside, patient with a leukocytosis, WBC today 16.2, patient reported urinary incontinence for last couple of months. Today Urinalysis revealed urine, nitrite 1+ leukocyte esterase 3+, WBC 132, bacteria moderate. Ordered ceftriaxone 1 g IV daily, pending urine culture. As per social service on 01/03/2026-[facility] will contact patient for placement today, patient needs to decide whether to agree to placement or discharge to previous. If patient agrees to placement, services can be obtained, [facility] has already accepted. Patient can receive [employer] for transport. 01/05- the patient was seen at bedside today. The patient was discharged yesterday but he refused to leave and he appealed the decision. He was seen by Neurology today and she was continued on the same medication. His urine culture reports came out today and showed positive for E coli and ESBL, so his discharge was canceled and he was put on IV meropenem. 01/06- The patient was seen at bedside today. The patient been put on IV Meropenem for ESBL which will be continued for 7 days, post which he will be discharged discharge planning will be done with case management social worker regarding home health and boarding care placement. -patient was seen at bedside. Vitals are stable and labs within range. Pending bed availability at [facility] 01/08-Patient was seen today at bedside. Labs and chart reviewed. No acute complaint. Patient on IV antibiotic meropenem for E coli ESBL UTI. Patient is supposed to be discharged today to [facility] for IV antibiotic therapy. Pending for midline. Patient was seen by Neurology. Neurology recommendation reviewed and appreciated. Continue Eliquis as prescribed. 01/09- patient was seen at bedside today. Vitals are stable and labs within range. Patient will be discharged to [facility] today on IV ertapenem for E coli ESBL. Currently waiting for transport. Patient reports: Feels better Objective vital signs Vital Sign Date Time Temp Pulse Resp B/P (MAP) Pulse Ox O2 Delivery O2 Flow Rate FiO2 01/09/25 10:54 78 128/78 01/09/25 08:00 18 97 Room Air* 0 21 01/09/25 05:00 98.0 98.0 Total Intake and Output 01/08/25 01/08/25 01/09/25 15:00 23:00 07:00 Intake Total 830 ml 1010 ml 450 ml Output Total 1650 ml 1100 ml Balance 830 ml -640 ml -650 ml medications Current Medications Medications Dose Ordered Sig/Stefanie Route Start Time Stop Time Status Last Admin Dose Admin Nitroglycerin 0.4 mg Q5MINP PRN SL 12/28/24 00:30 Diagnostic Test (Pha) 1 strip ACHS 12/28/24 07:00 01/09/25 11:30 1 STRIP Insulin Human Regular ACHS SC 12/28/24 07:00 01/08/25 21:30 2 UNITS Dextrose 50 ml UD PRN IV 12/28/24 01:30 Carvedilol 3.125 mg DAILY PO 12/28/24 10:00 01/09/25 09:54 3.125 MG Amlodipine Besylate 10 mg DAILY PO 12/28/24 10:00 01/09/25 09:54 10 MG Apixaban 5 mg BID PO 12/28/24 10:00 01/09/25 09:54 5 MG Atorvastatin Calcium 10 mg HS PO 01/02/25 22:00 01/08/25 20:51 10 MG Meropenem 50 ml @ 17 mls/hr Q8HR IV 01/05/25 22:00 01/09/25 06:15 17 MLS/HR Acetaminophen/ Hydrocodone Bitart 1 tab Q6HPRN PRN PO 01/08/25 20:45 01/09/25 04:07 1 TAB Examination General Appearance: Alert, Oriented X3, Cooperative, Mild distress HEENT: Atraumatic, Mucous membranes moist/pink Respiratory: Clear to auscultation, Normal air movement, No added sounds Cardiovascular: Regular rate, Normal S1, Normal S2, No murmurs Abdominal/ : Active bowel sounds, Soft, no distention, right upper abdomen tenderness, tenderness present over right lower ribs Extremities:bilateral lower extremity skin erythematous with multiple small ulcers noted at the anterior surfaces of both legs, left 2nd toe amputated. Skin: No Significant rash, except past surgical scars Neuro: Normal speech, mild right-sided weakness, peripheral vision loss in both eyes, right lateral rectus muscle weak, Ataxic gait. Psych/Mental Status: Mental status NL, Mood NL Nurse was there as law researcher during examination laboratory and microbiology Laboratory Tests 01/07/25 05:13 Test 01/07/25 05:13 Range/Units Serum Glucose 141 H 74-106 mg/dL Microbiology Date/Time Source Procedure Growth Status 01/03/25 11:13 Voided Urine Urine Culture - Final Escherichia coli - ESBL Complete Labs and/or images reviewed: Labs reviewed by me, Image(s) reviewed by me Problem List/Assessment/Plan Problem List/Assessment/Plan Chest pain ruled out ACS Atrial fibrillation -EKG: AFib -troponin 13 -nitroglycerin, morphine, oxygen given -Eliquis 5 mg p.o. b.i.d. for AFib CHF with minimally reduced EF echo-LVEF borderline 45-50%, mild global hypokinesis. Mild LVH Right ventricle mildly hypokinetic. Device lead present Moderate right and left atria dilation ruled out PE Ddimer-8.53 CTA-No evidence for large pulmonary embolism. 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 Endograft extends into the proximal abdominal aorta. Aneurysm sac measures 5.2 cm in the thoracic aorta and 4.9 cm in the proximal abdominal aorta. This is inadequately characterized due to the majority of contrast being within the pulmonary artery circulation. 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 Brain aneurysm status post coiling Uncontrolled diabetes mellitus Lantus 20 units Insulin sliding scale Uncontrolled hypertension Aortic dissection status post stent placement Amlodipine 10 mg p.o. daily Carvedilol 3.25 daily Peripheral arterial disease/hyperlipidemia Lipitor 40 mg Diabetic polyneuropathy Social Unstable housing and assistance for mobility (Wheelchair, Walker? ) due to fall risk UTI, complicated E coli and ESBL IV meropenem GI prophylaxis: Pantoprazole DVT prophylaxis: Eliquis Diet: Cardiac Goals of care discussed with the patient for more than 27 minutes: Full code status Case discussed with Dr Donnelly, patient and RN Plan discussed with: Patient, Other (RN) Plan discussed with: Patient Plan discussed with: Patient Dietary Evaluation Review Comments: 1) Add 60g CCHO restriction to cardiac diet 2) Encourage optimal PO intake 3) Initiate MVI @ 1 tb qd 4) Follow-up with cardiology and podiatry 5) Continue to monitor I&O, labs, and skin integrity Expected Outcomes/Goals: 1) appetite and labs to improve 2) wound to improve 3) gradual wt loss 4) f/u in 3-5 days HARJEET BARKER RESIDENT Jan 09, 2025 15:00
[2025-01-09] MEDS ORDERED: METF-370 PO (16:26)
== END 2025-01-09 16:40 | DRG 68 ==
LOC: ER 20:12 → OVERFLOW 12-28 00:26 → CENTRAL 12-28 03:55 → EAST 12-28 18:18 → CENTRAL 01-05 17:49
PROVIDERS: ADMIT Student in an Organized Health Care Education/Training Program; ATTEND Student in an Organized Health Care Education/Training Program
PROC: 05HA33Z Insertion of Infusion Device into Left Brachial Vein, Percutaneous Approach (ICD-10-PCS; principal; 2025-01-09)
PROC: B54NZZA Ultrasonography of Left Upper Extremity Veins, Guidance (ICD-10-PCS; 2025-01-09)
DX: I65.02 Occlusion and stenosis of left vertebral artery (principal); N39.0 Urinary tract infection, site not specified; I69.351 Hemiplegia and hemiparesis following cerebral infarction affecting right dominant side; I50.22 Chronic systolic (congestive) heart failure; E78.5 Hyperlipidemia, unspecified; Z20.822 Contact with and (suspected) exposure to COVID-19; I48.91 Unspecified atrial fibrillation; E11.42 Type 2 diabetes mellitus with diabetic polyneuropathy; F17.210 Nicotine dependence, cigarettes, uncomplicated; I77.810 Thoracic aortic ectasia; R26.89 Other abnormalities of gait and mobility; R29.6 Repeated falls; I25.10 Atherosclerotic heart disease of native coronary artery without angina pectoris; I11.0 Hypertensive heart disease with heart failure; Z95.0 Presence of cardiac pacemaker; Z82.49 Family history of ischemic heart disease and other diseases of the circulatory system; I69.398 Other sequelae of cerebral infarction
CPT/HCPCS: 36415; 70450; 70496; 70498; 71045; 71275; 80048; 80053; 80061; 80307; 81001; 82607; 82746; 82962; 83036; 83735; 83880; 84443; 84484; 85007; 85025; 85027; 85379; 87086; 87088; 87186; 87426; 87804; 93005; 93306; 93886; 97110; 97116; 97163; 97530; 99291; G0378; J1815; J2185